=== PATIENT | male | born 1950 | race Caucasian/White ===

== ENCOUNTER → 2017-11-28 15:44 | Outpatient (CLI) | payer OTHER, SELFPAY ==
--- NOTE | 2017-11-28 16:00 | RAD_ITS ---
STUDY: X-RAY - ABDOMEN/PELVIS REASON FOR EXAM: Male, 67 years old. Kidney stones TECHNIQUE: 2 supine views of the abdomen. COMPARISON: CT 07/25/2017. FINDINGS: Normal visualized lung bases. There is an unremarkable bowel gas pattern. There is no demonstrated free abdominal air. The visualized liver, spleen and kidneys are grossly normal in size and morphology. No renal stones identified. There are calcified phleboliths in the pelvis. Normal visualized osseous structures. RAD/Abdomen Single View IMPRESSION: Normal x-ray examination of the abdomen and pelvis. No renal or ureteral stones identified. Phleboliths identified in the pelvis. Electronically Signed: Yang Rodriguez DO at 6:39 EDT , Service support ,
== END ==
PROVIDERS: Family Provider Family Medicine; PCP Family Medicine; Visit Provider Urology
DX: N20.0 Calculus of kidney (principal)
CPT/HCPCS: 74018

== ENCOUNTER → 2017-11-28 18:27 | Outpatient (CLI) | payer OTHER, SELFPAY | PROVIDERS: Family Provider Family Medicine; PCP Family Medicine; Visit Provider Urology | DX: N21.0 Calculus in bladder (principal) | CPT/HCPCS: 87086 ==

== ENCOUNTER → 2017-12-24 16:02 | Outpatient (CLI) | payer OTHER, SELFPAY ==
--- NOTE | 2017-12-24 16:11 | EKG12_ITS ---
Test Reason : PRE-OP Blood Pressure : / mmHG Vent. Rate : 064 BPM Atrial Rate : 064 BPM P-R Int : 158 ms QRS Dur : 074 ms QT Int : 398 ms P-R-T Axes : 029 -17 -02 degrees QTc Int : 410 ms Normal sinus rhythm Inferior infarct , age undetermined , cannot be excluded Abnormal ECG Confirmed by SHARMAINE CAMILO, REGINA ([id number]), editor managing director PREMA WILKS ([id number]) on 12/26/2017 1:22:07 PM Referred By: Stone Goldman Confirmed By:REGINA SCHMID MD
[2017-12-24 17:23] LABS: Hematocrit 42.3 % (40-54); Mean Corp Hgb Conc 35.5 g/gl (32-36); Mean Corpuscular Hgb 30.5 pg (27.0-32.0); Mean Corpuscular Volume 86.2 fL (80-94); Mean Platelet Vol. 11.5 fl (6.2-12.0); Platelet Count 165 K/mm3 (150-450); RBC Distribution Width CV 12.4 % (11.6-14.6); RBC Distribution Width SD 38.7 fl (35.1-43.9); Red Blood Count 4.91 M/mm3 (4.6-6.2); White Blood Count 6.6 K/mm3 (4.4-11.0)
[2017-12-24 17:49] LABS: Scan Indicated on CBC? Y/N NO
[2017-12-24 18:02] LABS: Anion Gap 8 (5-15); BUN 12 mg/dL (7-18); BUN/Creat Ratio 13.2 RATIO (10-20); Calcium,Total 8.8 mg/dL (8.5-10.1); Chloride 108 mmol/L (98-107); Creatinine, Serum 0.91 mg/dL (0.70-1.30); EST Glomerular Filtration Rate 89 mL/min (>60); Est Glom Filt Rate - Afr Amer 107 mL/min (>60); Glucose 91 mg/dL (74-106); Potassium 3.7 mmol/L (3.5-5.1); Sodium Level 143 mmol/L (136-145)
== END ==
PROVIDERS: Family Provider Family Medicine; PCP Family Medicine; Visit Provider Urology
DX: Z01.818 Encounter for other preprocedural examination (principal); N20.0 Calculus of kidney
CPT/HCPCS: 36415; 80048; 85027; 93005

== ENCOUNTER → 2017-12-27 16:29 | Outpatient (CLI) | payer OTHER, SELFPAY ==
[2018-01-07 12:08] LABS: Ca Oxalate, Dihydrate 25 % (.); Ca Oxalate, Monohydrate 70 % (.)
== END ==
PROVIDERS: Visit Provider Urology
DX: N20.1 Calculus of ureter (principal); R31.0 Gross hematuria
CPT/HCPCS: 82360

== ENCOUNTER → 2018-05-07 16:55 | Outpatient (CLI) | payer OTHER, SELFPAY ==
[2018-05-07 18:33] LABS: AST(SGOT) 17 U/L (15-37); Alanine Aminotransfer ALT/SGPT 31 U/L (16-61); Albumin, Serum 3.8 g/dL (3.2-5.0); Alkaline Phosphatase 62 U/L (45-117); Anion Gap 10 (5-15); BUN 13 mg/dL (7-18); BUN/Creat Ratio 14.8 RATIO (10-20); Chloride 107 mmol/L (98-107); Cholesterol 145 mg/dL (200); Creatinine, Serum 0.88 mg/dL (0.70-1.30); EST Glomerular Filtration Rate 92 mL/min (>60); Est Glom Filt Rate - Afr Amer 112 mL/min (>60); Glucose 100 mg/dL (74-106); High Density Lipoprotein 28 mg/dL; Potassium 3.8 mmol/L (3.5-5.1); Protein, Total 7.8 g/dL (6.4-8.2); Sodium Level 141 mmol/L (136-145); Triglycerides 154 mg/dL; Very Low Density Lipoprotein 31 mg/dL (5-40)
== END ==
PROVIDERS: Family Provider Family Medicine; PCP Family Medicine; Visit Provider Family Medicine
DX: I10 Essential (primary) hypertension (principal); E78.5 Hyperlipidemia, unspecified
CPT/HCPCS: 36415; 80048; 80061; 80076

== ENCOUNTER → 2018-11-07 07:36 | Outpatient (CLI) | payer OTHER, SELFPAY ==
[2018-11-07 09:47] LABS: Anion Gap 6 (5-15); BUN 11 mg/dL (7-18); BUN/Creat Ratio 13.4 RATIO (10-20); Calcium,Total 8.9 mg/dL (8.5-10.1); Chloride 106 mmol/L (98-107); Cholesterol 169 mg/dL (200); Creatinine, Serum 0.82 mg/dL (0.70-1.30); EST Glomerular Filtration Rate 100 mL/min (>60); Est Glom Filt Rate - Afr Amer 121 mL/min (>60); Glucose 113 mg/dL (74-106); High Density Lipoprotein 33 mg/dL; Potassium 4.3 mmol/L (3.5-5.1); Sodium Level 141 mmol/L (136-145); Triglycerides 286 mg/dL; Very Low Density Lipoprotein 57 mg/dL (5-40)
== END ==
PROVIDERS: Family Provider Family Medicine; PCP Family Medicine; Referring Provider Family Medicine; Visit Provider Family Medicine
DX: I10 Essential (primary) hypertension (principal); E78.00 Pure hypercholesterolemia, unspecified
CPT/HCPCS: 36415; 80048; 80061

== ENCOUNTER → 2018-12-29 | Outpatient (CLI) | payer OTHER, SELFPAY ==
--- NOTE | 2018-12-29 17:20 | RAD_ITS ---
STUDY: X-RAY - ABDOMEN/PELVIS REASON FOR EXAM: Male, 68 years old. Right-sided kidney stone for follow-up. TECHNIQUE: AP supine abdomen 2 views. COMPARISON: November 28, 2017. FINDINGS: Normal visualized lung bases. There is an unremarkable bowel gas pattern. There is no demonstrated free abdominal air. The visualized liver, spleen and kidneys are grossly normal in size and morphology. Normal soft tissue structures. Normal visualized osseous structures. Calcifications in the pelvis suggestive of phleboliths unchanged. No renal calculi identified. Small renal calculi could easily be obscured by overlying bowel gas and stool. RAD/Abdomen Single View IMPRESSION: Normal x-ray examination of the abdomen and pelvis. No urinary tract stones identified. Electronically Signed: Mike Rodriguez MD at 1:34 EDT , Service support ,
== END | disposition home or self-care (01) ==
PROVIDERS: Family Provider Family Medicine; PCP Family Medicine; Referring Provider Urology; Visit Provider Urology
DX: N20.0 Calculus of kidney (principal); R31.9 Hematuria, unspecified
CPT/HCPCS: 74018; 87086; 87088

== ENCOUNTER → 2019-12-21 | Outpatient (CLI) | payer OTHER, SELFPAY ==
--- NOTE | 2019-12-21 17:03 | RAD_ITS ---
STUDY: X-RAY - RIGHT KNEE REASON FOR EXAM: Male, 69 years old. CHRONIC KNEE PAIN TECHNIQUE: 4 view(s) of the knee. COMPARISON: None. FINDINGS: Normal visualized distal femur. Normal visualized proximal tibia and fibula. Normal proximal tibiofibular articulation. There is no demonstrated fracture. There is mild to moderate degenerative arthrosis of the medial femorotibial compartment. There is mild degenerative arthrosis of the lateral femorotibial compartment. There is minimal degenerative arthrosis of the patellofemoral articulation. There is mild joint effusion. There is soft tissue swelling along the anterior ankle and suprapatellar region. RAD/Knee 4 or More Views IMPRESSION: Mild degenerative disease with mild joint effusion. No acute fracture or subluxation. Electronically Signed: Mona Davis MD at 0:25 EDT , Service support ,
== END | disposition home or self-care (01) ==
LOC: MTRAD 17:02
PROVIDERS: PCP Family Medicine; Referring Provider Family Medicine; Visit Provider Family Medicine
DX: M25.561 Pain in right knee (principal)
CPT/HCPCS: 73564

== ENCOUNTER → 2019-12-24 | Outpatient (CLI) | payer OTHER, SELFPAY ==
[2019-12-24 08:06] LABS: Anion Gap 7 (5-15); BUN 13 mg/dL (7-18); BUN/Creat Ratio 14.5 RATIO (10-20); Calcium,Total 8.9 mg/dL (8.5-10.1); Chloride 107 mmol/L (98-107); Cholesterol 156 mg/dL (200); EST Glomerular Filtration Rate 90 mL/min (>60); Est Glom Filt Rate - Afr Amer 109 mL/min (>60); Glucose 120 mg/dL (74-106); High Density Lipoprotein 27 mg/dL; Sodium Level 141 mmol/L (136-145); Triglycerides 290 mg/dL; Very Low Density Lipoprotein 58 mg/dL (5-40)
== END | disposition home or self-care (01) ==
PROVIDERS: PCP Family Medicine; Referring Provider Family Medicine; Visit Provider Family Medicine
DX: I10 Essential (primary) hypertension (principal)
CPT/HCPCS: 36415; 80048; 80061

== ENCOUNTER → 2020-04-29 | Outpatient (CLI) | payer OTHER, SELFPAY ==
--- NOTE | 2020-04-29 16:55 | RAD_ITS ---
STUDY: X-RAY CHEST REASON FOR EXAM: Male, 69 years old. Chest pain and cough TECHNIQUE: PA and lateral views of the chest. COMPARISON: 09/20/2014 FINDINGS: The lungs are clear and expanded. There is no demonstrated pleural abnormality. Normal size heart. Normal mediastinum and cherry. Normal visualized pulmonary arteries. Normal visualized aortic arch and descending thoracic aorta. Normal visualized thoracic spine. Normal visualized ribs, clavicles, and shoulders. There is no demonstrated abnormality of the visualized soft tissue structures of the upper abdomen. RAD/Chest PA and Lateral IMPRESSION: No acute pulmonary process Electronically Signed: Bc Duong MD at 10:45 EDT , Service support ,
== END | disposition home or self-care (01) ==
PROVIDERS: PCP Family Medicine; Referring Provider Family Medicine; Visit Provider Family Medicine
DX: J40 Bronchitis, not specified as acute or chronic (principal)
CPT/HCPCS: 71046

== ENCOUNTER → 2020-06-29 16:14 | Outpatient (CLI) | payer OTHER, SELFPAY ==
[2020-06-29 18:06] LABS: Anion Gap 7 (5-15); BUN 14 mg/dL (7-18); BUN/Creat Ratio 17.9 RATIO (10-20); Chloride 106 mmol/L (98-107); Cholesterol 159 mg/dL (200); Creatinine, Serum 0.78 mg/dL (0.70-1.30); EST Glomerular Filtration Rate 105 mL/min (>60); Est Glom Filt Rate - Afr Amer 127 mL/min (>60); Glucose 99 mg/dL (74-106); High Density Lipoprotein 36 mg/dL; Potassium 3.8 mmol/L (3.5-5.1); Sodium Level 140 mmol/L (136-145); Triglycerides 180 mg/dL; Very Low Density Lipoprotein 36 mg/dL (5-40)
== END ==
PROVIDERS: PCP Family Medicine; Visit Provider Family Medicine
DX: I10 Essential (primary) hypertension (principal)
CPT/HCPCS: 36415; 80048; 80061

== ENCOUNTER → 2020-08-17 15:45 | Outpatient (CLI) | payer OTHER, SELFPAY ==
--- NOTE | 2020-08-17 15:47 | RAD_ITS ---
STUDY: X-RAY - CERVICAL SPINE REASON FOR EXAM: Male, 69 years old. pain, base of neck in between shoulder blades TECHNIQUE: 6 view(s) of the cervical spine were obtained. COMPARISON: None FINDINGS: Normal anterior atlantoaxial articulation. Normal odontoid process. Normal cervical lordosis. There is multi-level endplate spondylosis. There is multi-level degenerative disc disease with multilevel disc space narrowing. There is multi-level osseous foraminal stenosis. The soft tissue structures are unremarkable. RAD/Cerv Spine 4 or 5 Views IMPRESSION: Degenerative changes without acute findings Electronically Signed: Ag Minor DO at 10:52 EST Tel , Service support ,
== END ==
PROVIDERS: PCP Family Medicine; Referring Provider Family Medicine; Visit Provider Family Medicine
DX: M54.2 Cervicalgia (principal)
CPT/HCPCS: 72050

== ENCOUNTER → 2021-04-10 | Outpatient (CLI) | payer MEDICARE, SELFPAY | END | disposition home or self-care (01) | PROVIDERS: PCP Family Medicine; Referring Provider Family Medicine; Visit Provider Family Medicine | DX: L02.91 Cutaneous abscess, unspecified (principal) | CPT/HCPCS: 87070; 87077; 87186; 87205 ==

== ENCOUNTER → 2021-04-17 | Outpatient (CLI) | payer MEDICARE, SELFPAY | END | disposition home or self-care (01) | LOC: LABSPEC 15:46 | PROVIDERS: PCP Family Medicine; Referring Provider Physician Assistant Surgical; Visit Provider Physician Assistant Surgical | DX: Z11.52 Encounter for screening for COVID-19 (principal) | CPT/HCPCS: 87635; U0005; U0003 ==

== ENCOUNTER → 2021-06-12 10:30 | Outpatient (CLI) | payer MEDICARE, SELFPAY ==
--- NOTE | 2021-06-12 10:39 | VDLE_ITS ---
Reason For Study: pain RIGHT GSV is normal. CFV is compressible, spontaneous, phasic, competent and demonstrates normal augmentation. FV is compressible, spontaneous, phasic, competent and demonstrates normal augmentation. POP V is compressible, spontaneous, phasic, competent and demonstrates normal augmentation. T/P Trunk is compressible. PTV is compressible. RT PerV is compressible. Procedure This is a venous duplex using B-mode, color flow and spectral Doppler. Exam performed in department. The exam was abbreviated due to the COVID 19 protocol. The exam was diagnostic. A preliminary report was called and/or faxed to Dr. Laguna. VL/Venous Duplex US, Unilateral Interpretation Summary Deep veins of the right lower extremity are patent and compressible segmentally . There is no evidence of right lower extremity deep vein thrombosis. Valvular competence renate ears intact within the proximal deep venous system on the right . The right great saphenous vein a ppears patent and compressible segmentally. Ordering Physician: Dawson Laguna Performed By: Damián Whitlock RVT
== END ==
PROVIDERS: PCP Family Medicine; Referring Provider Family Medicine; Visit Provider Family Medicine
DX: M79.604 Pain in right leg (principal)
CPT/HCPCS: 93971

== ENCOUNTER 2021-10-26 12:06 | Outpatient (CLI) | payer MEDICARE, SELFPAY ==
--- NOTE | 2021-10-26 12:15 | RAD_ITS ---
STUDY: X-RAY - RIGHT KNEE REASON FOR EXAM: Male, 71 years old. Pain. TECHNIQUE: 4 view(s) of the knee. COMPARISON: 02/09/2013 and 12/21/2019.. FINDINGS: Normal visualized distal femur. Normal visualized proximal tibia and fibula. Normal proximal tibiofibular articulation. There is no acute fracture, dislocation or destructive osseous pathology. There is moderate degenerative arthrosis of the medial femorotibial compartment with moderate joint space narrowing. There is mild degenerative arthrosis of the lateral femorotibial compartment. There is mild degenerative arthrosis of the patellofemoral articulation. There is no demonstrated joint effusion. The soft tissue structures are unremarkable. RAD/Knee 4 or More Views IMPRESSION: Stable arthrosis of the right knee. There is no acute fracture or dislocation. Electronically Signed: Lupillo Gunn DO at 16:08 EST ,
== END 2021-10-26 23:59 | disposition home or self-care (01) ==
PROVIDERS: PCP Family Medicine; Referring Provider Family Medicine; Visit Provider Family Medicine
DX: M25.561 Pain in right knee (principal)
CPT/HCPCS: 73564

== ENCOUNTER 2021-12-12 12:37 | Outpatient (CLI) | payer SELFPAY ==
--- NOTE | 2021-12-12 12:47 | CT_ITS ---
CT Lower Extremity W/O Contrast Injection INDICATION:71 years old Male presenting with templating for right TKA. TECHNIQUE: Sequential axial 2.5 mm collimated images are obtained through the right hip and ankle. 0.625 mm images were obtained through the right knee. No intravenous contrast was administered. Images were reformatted in sagittal and coronal planes and forwarded for preoperative planning. COMPARISON: None. FINDINGS: Contiguous axial images of the right lower extremity was obtained in different collimations for preoperative planning, images demonstrate degenerative changes, no evidence of cortical irregularity is a lucencies to suggest fractures, no evidence of lytic or sclerotic bone lesions are seen. No evidence of right hip dislocation, no significant narrowing or widening of the right hip joint space. Moderate to severe narrowing of the knee joint spaces is visualized calcifications visualized within the joint space consistent with CPPD deposition disease. Prominent osteophyte formation is seen. No evidence of suprapatellar effusion. No evidence of popliteal collection. 0.8 cm subchondral density visualized in the medial aspect of the distal femur with mild scalloping of the overlying cortex best visualized on axial series 2 image 243/647. The ankle mortise is well-maintained, the talar dome is unremarkable, degenerative changes visualized with no evidence of cortical irregularity and lucency to suggest a fracture. No evidence of dislocation is seen. Stranding of the subcutaneous soft tissues is visualized, most prominent along the anterior aspect of the patella bone and patellar ligament. Vascular calcifications seen. IMPRESSION: Degenerative changes, no evidence of acute osseous abnormality seen. Electronically Signed: Arslan Mac MD at 14:59 EDT Reading Location ID and State: [facility] / [place] Tel , Service support , CT/Extremity Lower without Contra
== END 2021-12-12 23:59 | disposition home or self-care (01) ==
LOC: CT 12:45
PROVIDERS: PCP Family Medicine; Referring Provider Orthopaedic Surgery; Visit Provider Orthopaedic Surgery
DX: M17.11 Unilateral primary osteoarthritis, right knee (principal)
CPT/HCPCS: 73700

== ENCOUNTER 2022-01-02 05:42 | Inpatient (IN) | payer MEDICARE, SELFPAY ==
[2021-12-21 10:11] LABS: Absolute Lymphocyte Count 1.68 X10^3/uL (0.83-4.51); Absolute Neutrophil Count 2.5 X10^3/uL (2.0-7.7); Basophil# 0.03 X10^3/uL; Basophil% 0.6 % (0-1); Eosinophil# 0.11 X10^3/uL; Eosinophils% 2.2 % (0-5); Hematocrit 41.9 % (40-54); Hemoglobin 14.1 g/dL (13.0-16.5); Lymphocyte # 1.68 X10^3/ul (0.83-4.51); Lymphocyte % 34.3 % (19-41); Mean Corp Hgb Conc 33.7 g/dL (32-36); Mean Corpuscular Hgb 29.9 pg (27.0-32.0); Mean Corpuscular Volume 88.8 fL (80-94); Mean Platelet Vol. 11.1 fl (6.2-12.0); Monocyte# 0.55 X10^3/uL; Monocyte% 11.2 % (0-10); NRBC Flagged by Analyzer 0 % (0-5); Neutrophil # 2.52 X10^3/uL (2.7-7.7); Neutrophil % 51.5 % (47-70); Platelet Count 159 K/mm3 (150-450); RBC Distribution Width CV 12.1 % (11.6-14.6); RBC Distribution Width SD 39.8 fl (35.1-43.9); Red Blood Count 4.72 M/mm3 (4.6-6.2); White Blood Count 4.9 K/mm3 (4.4-11.0)
[2021-12-21 10:18] LABS: International Normalized Ratio 1.1; Prothrombin Time (Protime)PT. 13.4 SECONDS (11.7-14.9)
[2021-12-21 10:19] LABS: Partial Thromboplast Time 28.5 Seconds (24.1-36.2)
[2021-12-21 10:38] LABS: Anion Gap 5 (5-15); BUN 13 mg/dL (7-18); BUN/Creat Ratio 17.1 RATIO (10-20); Chloride 106 mmol/L (98-107); Creatinine, Serum 0.76 mg/dL (0.70-1.30); EST Glomerular Filtration Rate 108 mL/min (>60); Est Glom Filt Rate - Afr Amer 130 mL/min (>60); Glucose 111 mg/dL (74-106); Potassium 3.9 mmol/L (3.5-5.1); Sodium Level 140 mmol/L (136-145)
[2021-12-21 10:39] LABS: Magnesium 1.9 mg/dL (1.6-2.6)
--- NOTE | 2021-12-22 10:32 | EKG12_ITS ---
Test Reason : PRE-OP Blood Pressure : / mmHG Vent. Rate : 056 BPM Atrial Rate : 056 BPM P-R Int : 176 ms QRS Dur : 074 ms QT Int : 436 ms P-R-T Axes : 011 -20 -06 degrees QTc Int : 420 ms Sinus bradycardia Inferior infarct , age undetermined, cannot be excluded Abnormal ECG Confirmed by SHARMAINE CAMILO, REGINA ([id number]), desk editor SANGITA CHRIS ([id number]) on 12/22/2021 10:33:18 AM Referred By: Jim Whelan Confirmed By:REGINA SCHMID MD
[2021-12-22 12:47] LABS: Fructosamine 229 umol/L (0-285)
[2022-01-02] VITALS (10 sets, daily range): BP systolic 105–144; BP diastolic 64–129; PULSE 58–75; RESP 14–20; TEMP 36.1–37.1; O2SAT 94–100; BMI 38.6
[2022-01-02] MEDS: Scopolamine 1mg/72hr Patch 1 PATCH TD (06:58)
[2022-01-02] MEDS: Acetaminophen 500 MG Tablet 1000 MG PO ×3 (06:58→21:52)
[2022-01-02] MEDS: Gabapentin 600 MG Tablet PO (06:58)
[2022-01-02] MEDS: Celecoxib 200 MG Capsule 400 MG PO (06:59)
--- NOTE | 2022-01-02 07:08 | HP.PCM_ITS ---
History and Physical Date of Admission: 01/02/22 Date of Service: 11/06/21 MR#:[id number]:[id number]: HANNAH LEBRONRep #:[id number] Provider:Dr. Jim Whelan DOAge/Sex: 71/M Location:[facility]:Signed Intake Vital Signs 11/06/21 08:22 Height 5 ft 7 in Weight: 247 lb 2 oz BMI 38.7 Intake Visit Reasons: RIGHT KNEE Is patient in pain?: Yes Pain scale (1-10): 7 Allergies No Known Allergies Allergy (Verified 11/06/21 08:26) Medications clopidogrel 75 mg PO DAILY 12/21/15 [History Confirmed 04/17/21] pantoprazole 40 mg PO DAILY 12/21/15 [History Confirmed 11/06/21] pravastatin 40 mg PO QHS 12/21/15 [History Confirmed 11/06/21] valsartan 80 mg PO DAILY 12/21/15 [History Confirmed 11/06/21] [facility] History (Updated 11/06/21 @ 08:37 by Cherelle Camp) HTN (hypertension) Osteoarthritis of right knee Stroke Surgical History (Updated 04/17/21 @ 13:48 by Tatum Díaz) History of hernia repair Social History Smoking Status: Former smoker HPI RIGHT KNEE Details: Parts of this documentation were recorded by a scribe, this documentation accurately reflects the service provided and the decisions made by me, Dr. Jim Whelan, 11/06/21 0744. HANNAH LEBRON is a 71 year old M here today new patient for right knee pain, r antony from Dr. Dawson Laguna. Patient notes that he has had right knee pain for many years. He states that he has had a few steroid injections over the last few years with the most recent about 1-2 months ago. Patient states that he slipped on the ice a few weeks ago and when he hyperextended his knee where he had pain immediately. He states that he had a pop at that time. Patient complains of pain over his anterior knee. He had cracking and snapping which is not painful. He complains of an achiness at night. Patient has been using aspercreme which is helpful. He has been wearing a brace which is helpful. Patient denies any previous surgery to his right knee. Patient is taking tramadol for pain. He denies any recent physical therapy. Patient had xrays which are here for review. 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 mild edema. varicose veins Left Knee Patella Translation: 1 Supplemental Info 10/26/2021 x-ray right knee advanced medial compartment knee arthrosis with varus deformity also degenerative changes noted in lateral and patellofemoral compartment with lateral patellar tracking Coding Level of Care Code 64342 Diagnoses Osteoarthritis of right knee M17.11 Assessment and Plan Assessment and Plan (1) Osteoarthritis of right knee: Status: Acute Plan - Dr. Jim Whelan, DO: Educated the patient about the anatomy of the knee and etiology of her pain. Spoke with him about osteoarthritis. Explained his options- steroid injections, viscosupplementation injections, licensed occupational therapist bracing, physical therapy, a total knee arthroplasty. Patients pain is affecting his ADLs and he would like to proceed with an arthroplasty. Spoke with him about the procedure and recovery. He will need to stop his plavix 7 days prior to his surgery, we will get a medical clearance from his PCP. He will need to get a CT scan for TKA templating. Spoke with him about the importance of physical therapy post op to help with stiffness. Patient needs dental work due to broken teeth. We need to get a dental clearance prior to the procedure to assure he does not have an infection. Spoke with him about the iovera procedure which he would like to proceed with if approved with insurance. He will be on a blood thinner post op to prevent clots. Patient will be same day surgery. Follow up for 2 week post op or sooner if pain, swelling, numbness or associated symptoms, or concerns develop. All questions answered. Patient in agreement of plan. I will forward a copy to Dr. Laguna of today's note 11/06/21 0955<Electronically signed by Jim Whelan DO>Date Jim Whelan DO Cosigner Signature:Date (if applicable) CC: Dr. Dawson Laguna MD ~I have re-examined the patient. There are no clinical changes since date of exam
[2022-01-02] MEDS: Lactated Ringers 1,000 ML 15 ML IV (07:17)
[2022-01-02] MEDS: Cefazolin 2 GM in 0.9% Normal Saline 100 ML IV (07:55)
--- NOTE | 2022-01-02 08:00 | KNEE_PTH ---
PATIENT: HANNAH LEBRON LOC: MS3 U#:[id number] AGE/SX: 71/M ROOM: [facility] RE01/02/[address]: Dr. Jim Whelan DO : 1950 BED: 1 DIS: 01/03/2022 SPEC #: [id number] RECD: 01/02/22 10:49 STATUS: VICTORIANO ROMANO #: [id number] MARIALUISA: 01/02/22 08:[address]: Jim Whelan DEPT: SURGICAL PATHOLOGY RECD BY: Gracie Eckert ENTERED: 01/02/22 12:10 SP TYPE: TOTAL KNEE OTHR DR: Dr. Dawson Laguna MD Tissues: Knee, NOS Procedures: Decalcification bone/plaque Surgery Specimen Level IV HEADER OPERATION: ERAS, total knee replacement robotic arm assist PRE-OP DIAGNOSIS: Osteoarthritis of right knee TISSUE SUBMITTED: Femoral and tibial bone MICROSCOPIC DIAGNOSIS Bone and tissue of left knee, total knee resection: Severe degenerative joint disease. Soft tissue with crystalline debris consistent with pseudogout. AM:guillaume 01/05/2022 MICROSCOPIC DESCRIPTION Slides are reviewed. GROSS DESCRIPTION Received in fixative is one container labeled with the patient's name and designated femoral and tibial bone. The specimen consists of multiple fragments of herrera-yellow bone measuring in aggregate 10 x 10 x 3.5 cm. Also in the specimen container are multiple fragments of yellow-white soft tissue consisting predominantly of hyaline cartilaginous tissue measuring in aggregate 6.5 x 3 x 1 cm. A number of bony fragments contain articular surfaces consistent with tibial plateau and femoral condyle and displaying prominent osteophyte formation, eburnation, and bone erosion. Physician Ophthalmologist sections are submitted in two cassettes as follows: 1 - soft tissue, 2 - bone after decalcification. / SJ:guillaume 01/02/2022 :5 [facility]: [id number], [id number]
[2022-01-02] MEDS: TXA 1000mg in NS100 100ml (IVPB at Incision) 660 MG IV (08:08)
[2022-01-02 08:25] LABS: Bedside Glucose 121 mg/dL (74-106)
[2022-01-02] MEDS: dexAMETHasone 10 MG/ML Vial IV (08:52)
[2022-01-02] MEDS: TXA 1000mg in NS100 100ml (IVPB at Closure) 660 MG IV (10:03)
--- NOTE | 2022-01-02 10:25 | OP.PCM_ITS ---
Report of Operation Date of Procedure: 01/02/22 Description of Surgical Findings:: Preoperative diagnosis: Right knee DJD Postoperative diagnosis: Same Procedure: Right total knee arthroplasty CT guided Robotic Assisted Implant: John triathlon cemented, femoral component size5, tibial baseplate size 5, asymmetric patella size 32, polyethylene X3 size 9 CS Anesthesia: Spinal with adductor canal block Tourniquet time: 32 minutes at 300 mmHg total time divided between 2 increments with a period of a down to between Complications: None Condition: Stable to PACU Estimated blood loss: 225 cc Indication for procedure: This is a 71-year-old male with long standing degenerative joint disease of the knee who has failed conservative treatment and wished to proceed with elective total knee arthroplasty. Risk benefits and alternatives were reviewed including; risk of bleeding, infection, nerve artery and tissue damage, continued pain, postoperative stiffness, venous thromboembolism, need for postoperative rehabilitation, mechanical feel to the knee, and expected postoperative course. The pre- operative CT and templating was performed with component sizing. Procedure: The patient was met in the preoperative holding area. The operative extremity was identified by both patient and physician and was marked. Patient was met by anesthesia. An adductor canal block was placed by anesthesia postoperatively the patient was brought back to the operating room on a wheeled cart and transferred to the operating table in the supine position. Anesthesia was started. A well-padded tourniquet was placed on the operative extremity. The patient was prepped and draped in the usual sterile fashion. A timeout was called to ensure the proper patient procedure and extremity were being contemplated. An esmarch was used to exsanguinate the extremity. The tourniquet was inflated. A 10 blade scalpel was used to make a midline incision down through the skin and subcutaneous tissue. Skin retractors placed. Bovie and Aquamantis were used to perform meticulous hemostasis. full-thickness flaps were elevated medial and lateral along the joint capsule. A deep blade scalpel was used to perform a medial parapatellar arthrotomy. The knee was brought to full extension. A bovie was used to release the soft tissues off the most proximal aspect of the medial tibial plateau, a three-quarter inch curved osteotome was also used in this process. The infrapatellar fat pad was excised. The suprapatellar fat pad was excised partially anteriorolateraly and portion the anterioromedial pad was elevated from the femur. At this point our intra- articular femoral array was placed at a 45 degree angle proximal and posterior to the medial epicondyle. femoral checkpoint was placed at this time. Our tibial array was placed greater than 1 hands breath below the incision at a 20 degree angle stab incisions were made with a 15 blade scalpel and pins were placed and attached to the tibial array , tibial checkpoint was placed in the proximal tibial metaphysis. Tourniquet was let down. At this point registration landers were taken throughout the knee . Once the knee was registered we then tensioned the medial and lateral ligaments in extension and 90 degrees of flexion. We then used these numbers to adjust our components within parameters to balance the knee in both flexion and extension once this was done on our monitor we then proceeded with using the robotic arm to make our tibial plateau cut, anterior and posterior chamfer and distal femur cuts. we removed the cut fragments with the use of a bovie and Trey, we did use a lamina fitness and wellness instructor to insure we visualized and removed all posterior osteophytes and at this time also used the Aquamantis on the posterior joint capsule. we then trialed and achieved the desired plan with a well-balanced knee. we used the green probe to manolo the corresponding tibial rotation based on our CT template. Lug holes were drilled in the femur the tibia preparation was completed with the appropriate sized base plate pinned based on previous rotat ion manolo. An appropriate sized fin punch was used on the tibia and the patella was prepared by first using a caliper to ensure sufficient bone stock and a patellar reamer to remove the desired amount of bone. lug holes drilled for an asymmetric poly. We then brought the knee through range of motion with excellent patellar tracking. We thoroughly irrigated the knee. Trial components were removed a posterior capsular injection was preformed with our standard cocktail. In addition the aqua Mantis was also used to aid in hemostasis. Betadine rinse was allowed to sit and washed out completely. Components were cemented into place all cement was removed with prayers Betadine rinse was used during cement hardening. Aricept rinse was then used followed by several more liters of irrigation after it was allowed to sit. The joint capsule was closed with #1 Ethibond [id number]'s followed by Vicryl in the subcutaneous tissues with humberto in the skin. Arrays and checkpoints were rem sal prior to closure all counts were correct stab incisions were closed with a staple standard dressing in the form of Mepilex AG for the main incision and a small Mepilex over the pin holes. Thigh-high RUBÉN hose applied over top of dressing. Patient tolerated the procedure well and was directed to PACU in stable condition . There were no intraoperative complications.
--- NOTE | 2022-01-02 10:50 | RAD_ITS ---
STUDY: X-RAY - RIGHT KNEE REASON FOR EXAM: Male, 71 years old. Post op -- AP and Lateral xray of operative knee in PACU TECHNIQUE: 2 view(s) of the knee. COMPARISON: Comparison is made with prior study 10/26/2021. FINDINGS: Normal visualized distal femur. Normal visualized proximal tibia and fibula. Normal proximal tibiofibular articulation. Patient is status post right total knee replacement. There is good alignment. Postoperative soft tissue changes. RAD/Knee 1 or 2 Views IMPRESSION: Status post right total knee replacement. There is good alignment. Postoperative soft tissue changes. Electronically Signed: Herber Kumari MD at 12:20 EDT ,
[2022-01-02] MEDS: oxyCODONE 5 MG Tablet PO ×2 (12:26→16:27)
[2022-01-02] MEDS: Cefazolin 1 GM/50 ML BAG IV ×2 (13:29→21:50)
[2022-01-02] MEDS: Lactated Ringers 1,000 ML 125 ML IV ×2 (13:29→21:47)
[2022-01-02] MEDS: Senna/Docusate Sodium 1 Tablet 2 TABLET PO (21:52)
[2022-01-02] MEDS: Pravastatin 40 MG Tablet PO (21:53)
[2022-01-03 03:35] VITALS: BP 118/60; PULSE 61; RESP 18; TEMP 36.8; O2SAT 98
[2022-01-03] MEDS: oxyCODONE 5 MG Tablet PO ×2 (04:27→12:44)
[2022-01-03] MEDS: Cefazolin 1 GM/50 ML BAG IV (04:29)
[2022-01-03] MEDS: Acetaminophen 500 MG Tablet 1000 MG PO (05:12)
[2022-01-03] MEDS: APIXABAN 2.5 MG TABLET PO (05:13)
[2022-01-03 05:18] LABS: Hematocrit 33.3 % (40-54); Hemoglobin 11.3 g/dL (13.0-16.5); Mean Corp Hgb Conc 33.9 g/dL (32-36); Mean Corpuscular Hgb 30.4 pg (27.0-32.0); Mean Corpuscular Volume 89.5 fL (80-94); Mean Platelet Vol. 11.3 fl (6.2-12.0); Platelet Count 130 K/mm3 (150-450); RBC Distribution Width SD 39.2 fl (35.1-43.9); Red Blood Count 3.72 M/mm3 (4.6-6.2); White Blood Count 9.3 K/mm3 (4.4-11.0)
[2022-01-03 05:43] LABS: Anion Gap 6 (5-15); BUN 13 mg/dL (7-18); Calcium,Total 8.2 mg/dL (8.5-10.1); Chloride 106 mmol/L (98-107); Creatinine, Serum 0.72 mg/dL (0.70-1.30); EST Glomerular Filtration Rate 114 mL/min (>60); Est Glom Filt Rate - Afr Amer 138 mL/min (>60); Estimated Creatinine Clearance 64.26 ml/min; Glucose 170 mg/dL (74-106); Potassium 3.8 mmol/L (3.5-5.1); Sodium Level 139 mmol/L (136-145)
[2022-01-03 07:35] VITALS: BP 128/81; PULSE 58; RESP 18; TEMP 36.7; O2SAT 98
[2022-01-03] MEDS: Pantoprazole Sodium 40 MG Tablet PO (08:33)
[2022-01-03] MEDS: Senna/Docusate Sodium 1 Tablet 2 TABLET PO (08:33)
[2022-01-03] MEDS: Losartan Potassium 25 MG Tablet PO (08:33)
--- NOTE | 2022-01-03 10:15 | CASEMGMT ---
CARINE ZIEGLER Assessment: Face to Face with pt for initial transition planning/care coordination assessment. RN KARLIE introduced self and role at [facility], pt voices understanding and consents to assessment. Pt is A/O x4 and answers all questions appropriately at this time. Pt sitting up in chair anxious to go home. at bedside. Care providers, pharmacy, and demographics verified/updated. Admitting Dx: anterior cervical fusion rt C5-6 PCP:[facility] Specialists:Kyree, pain mgmt; Lance, spine OR [facility]erred [facility]acy: [facility] Insurance: [employer] Prescription Benefit: yes LW/HPOA: Pt denies having a LW/DPOA and denies need for info regarding AD. LNOK: Stephani Terry, Living Arrangements: Pt lives with and son in a two story house with 3 steps to enter with a rail. Pt reports he was I in ADL's prior to surgery. Pt states he has worked with therapy this morning on the steps and did well without device. Transportation: Pt drives self and denies concerns with transportation. Pt will transport him until he can drive again. DME/HHC/SNF: Pt denies having any DME in the home, hx of HHC or SNF stays. Pt states no concerns with going home at time of dc. Pt states no further concerns/needs. CM to follow. Advised pt to ask CM if any further question/concerns/needs arise, voices understanding. Pt Goal: Home Plan: Home
--- NOTE | 2022-01-03 10:23 | CASEMGMT ---
Addendum entered by Olesya Thornton 01/03/22 10:44: TC to [facility], pt is scheduled for his first therapy session on Friday 01/05 at noon. Original Note: CARINE ZIEGLER Assessment: Face to Face with pt for initial transition planning/care coordination assessment. CARINE ZIEGLER introduced self and role at [facility], pt voices understanding and consents to assessment. Pt is A/O x4 and answers all questions appropriately at this time. Pt sitting up in chair in no distress. Care providers, pharmacy, and demographics verified/updated. Admitting Dx: Rt total knee robotic PCP:Luz Elena Specialists:cynthia Whelan Preferred Pharmacy:[facility] Insurance: [employer] [facility] Prescription Benefit: yes LW/HPOA: Pt denies having a LW/DPOA and denies need for info regarding AD. LNOK: Imani Benitez, Living Arrangements: Pt lives with in a single story house with 2 steps to enter with a rail. Pt reports he was I in ADL's prior to surgery. Transportation: Pt drives self and denies concerns with transportation. Pt will transport him until he is able to drive again. DME/HHC/SNF: Pt has hand rails in the shower, shower chair as well as a FWW which is present in the room. Pt denies hx of HHC or SNF stays. Pt states no concerns with going home at time of dc. He states he has therapy set up at [facility]. He designates his to be his contact center analyst to discuss dc plans with if need be. States she will be in later. Pt states no further concerns/needs. CM to follow. Advised pt to ask CM if any further question/concerns/needs arise, voices understanding. Pt Goal: Home with outpt therapy Plan: Home with outpt therapy already set up.
--- NOTE | 2022-01-03 11:44 | PCM.PN.ORT ---
Subjective Subjective Seen and examined pain controlled denies nausea vomiting shortness of breath or chest pain he is passing gas and urine he has been up with physical therapy and ambulating well patient is requesting to be discharged home today Objective Data Objective Data Vital Signs: Vital Signs Temp Pulse Resp BP Pulse Ox 98.0 F 58 L 18 128/81 H 98 01/03/22 07:35 01/03/22 07:35 01/03/22 07:35 01/03/22 07:35 01/03/22 07:35 Oxygen Flow Rate (L/min) 4 Oxygen Delivery Method Nasal Cannula Weight: 246 lb 7.629 oz Body Mass Index (BMI) 38.6 Intake & Output: Intake and Output for Last 24 Hours 01/01/22 01/02/22 01/03/22 23:59 23:59 23:59 Intake Total 2216.00 / 2216.00 818.75 / 818.75 Output Total 1050 / 1050 550 / 550 Balance 1166.00 / 1166.00 268.75 / 268.75 Lab / Micro Data Result Diagrams: 01/03/22 04:35 01/03/22 04:35 Labs: Laboratory Results - last 24 hr 01/03/22 04:35: WBC 9.3, RBC 3.72 L, Hgb 11.3 L, Hct 33.3 L, MCV 89.5, MCH 30.4, MCHC 33.9, RDW Std Deviation 39.2, RDW Coeff of Brittni 12.0, Plt Count 130 L, MPV 11.3 01/03/22 04:35: Sodium 139, Potassium 3.8, Chloride 106, Carbon Dioxide 27.0, Anion Gap 6, BUN 13, Creatinine 0.72, Estim Creat Clear Calc 64.26, Est GFR (MDRD) Af Amer 138, Est GFR (MDRD) Non-Af 114, BUN/Creatinine Ratio 18.0, Glucose 170 H, Calcium 8.2 L Micro: Microbiology 12/21/21 09:41 Swab (Method) Nasal Screen MRSA/MSSA - Final Radiography Diagnostic Testing: Radiology Impression Knee X-Ray 01/02/22 10:50 IMPRESSION: Status post right total knee replacement. There is good alignment. Postoperative soft tissue changes. Electronically Signed: Herber Kumari MD at 12:20 EDT , Physical Exam Const alert, oriented x3 and no apparent distress General Appearance: cooperative Extremity Extremity Narrative: Dressings clean dry and intact compartments soft neurovascular intact EHL tibialis anterior gastrocsoleus intact and station light touch palpable pedal pulses Assessment & Plan Assessment/Plan (1) History of total knee arthroplasty: QUALIFIERS: Laterality: right Qualified Code(s): Z96.651 - Presence of right artificial knee joint PLAN: Postop day #1 right total knee arthroplasty. Patient is doing well pain controlled ambulating well no complaints requesting to be discharged home DC home start outpatient physical therapy weightbearing as tolerated DVT prophylaxis thigh-high RUBÉN santos, Eliquis 2.5 mg twice daily Follow-up in the office 2 weeks encourage knee range of motion
--- NOTE | 2022-01-03 11:47 | PCM.DC ---
Discharge Instructions Diet Discharge Diet: No restrictions Activity Weight Bearing Status: Weight bearing as tolerated Dressing / Incision Call your doctor if you observe: Shortness of breath and Chest pain Additional Dressing/Incision Instructions:: Ice and elevate one week while not ambulating. Ambulation is encouraged. Weightbearing as tolerated. Use assistive devise for stability. Encourage FULL knee extension and flexion 1 time EVERY time you get up and down and MULTIPLE times per day. No showering 72 hours after surgery. Begin showering postop day #3. Remove the dressing prior to shower and gently wash with warm water and antibacterial soap then pat dry and place abdominal pad (or plain gauze) and RUBÉN hose over top. This is to be done daily. Do not submerge for 3 weeks. If not showering daily after the initial 72 hours then you must clean incision and change dressing daily. Do not allow animals near the incision area. Keep clean. Follow anticoagulation recommendations as prescribed. Do not take any NSAIDs while on blood thinner. Do not take any additional narcotic pain medication other than what was prescribed on your surgery day without discussing with physician. Narcotic medication can be addictive. Do not drink alcohol while taking narcotics. Start physical therapy. If you are not currently scheduled for physical therapy or you are unsure of appointment time please call office [facility] to arrange. Call Dr. Whelan with any concerns. Follow Up Care Please Follow Up With: Jim Whelan DO When: 2 weeks Test Results: Test results from this visit will be discussed in further detail at your follow-up appointment, if applicable. Discharge Plan Admission Admit Date/Time: 01/02/22 05:42 Primary Reason for Your Visit: right tka Attending Provider: Jim Whelan Primary Care Provider: Dawson Laguna Discharge Orders/Prescriptions Prescriptions: New acetaminophen 500 mg Tablet 1,000 mg PO Q6H Qty: 100 RF: 1 Eliquis 2.5 mg Tablet 2.5 mg PO BID Qty: 28 RF: 0 oxycodone 5 mg Tablet 5 - 10 mg PO Q4H PRN PRN (Reason: Pain Score 4-10) 7 Days Qty: 60 RF: 0 Continued pravastatin 40 MG tablet 40 mg PO QHS RF: 0 valsartan 80 MG tablet 80 mg PO DAILY RF: 0 pantoprazole 40 MG tablet 40 mg PO DAILY RF: 0 Held clopidogrel 75 MG tablet 75 mg PO DAILY RF: 0 Hold Instructions: May resume day after completion of Eliquis rx Referrals / Follow Up: Dawson Laguna MD [Primary Care Provider] - Disposition Disposition (needs filled in before D/C Order can be placed): Home, Self Care
--- NOTE | 2022-01-03 11:53 | DS.PCM_ITS ---
Providers Date of Admission: 01/02/22 Primary Care Physician: Dr. Dawson Laguna MD Reason For Visit: RT TOTAL KNEE ROBOTIC Diagnosis Discharge Diagnosis (1) History of total knee arthroplasty: Status: Acute Code(s): Z96.659 - Presence of unspecified artificial knee joint Qualifiers: Laterality: right Qualified Code(s): Z96.651 - Presence of right pako ficial knee joint Medications at Discharge Home Medications clopidogrel 75 mg PO DAILY 12/21/15 pantoprazole 40 mg PO DAILY 12/21/15 pravastatin 40 mg PO QHS 12/21/15 valsartan 80 mg PO DAILY 12/21/15 acetaminophen 1,000 mg PO Q6H #100 tab 01/03/22 apixaban [Eliquis] 2.5 mg PO BID #28 tab 01/03/22 oxycodone 5 - 10 mg PO Q4H PRN PRN 7 Days #60 tab 01/03/22 Hospital Course Summary of Care Provided Hospital Course: 71-year-old male who has 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 Patient underwent the aformentioned procedure on the admission date without any intraoperative complications. Patient did receive pre-and postoperative antibiotics which were discontinued within 23 hours postoperatively. Patient did receive [spinal anesthesia as well as an adductor canal block postoperatively]. pain was controlled with IV and transition to p.o. pain medication Patient will be discharged home with oxycodone and will continue Tylenol as well. Patient had minimal intraoperative blood loss and 2gm tranexamic acid was administered there was no need for postoperative blood transfusion Patients vital signs remained stable. Patient was started on both mechanical and chemical DVT per prophylaxis postoperatively in the form of SCDs RUBÉN hose and [Eliquis 2.5 mg twice daily for which she will continue for 2 additional weeks post hospital discharge]. thigh high rubén hose placed over top of the meplix silver dressing. This should be removed 72 hrs post operatively and showering begun daily at that time with warm water and antibacterial soap. not to submerge for 3 weeks. To change dressing daily after first dressing change. Patient will follow-up in the office in 2 weeks. No intrahospital complications. Weight / BMI Weight Weight: 246 lb 7.629 oz Body Mass Index (BMI) 38.6 ABG / Lab / Microbiology Data Result Diagrams: 01/03/22 04:35 01/03/22 04:35 Laboratory: Laboratory Results - last 24 hr 01/03/22 04:35: WBC 9.3, RBC 3.72 L, Hgb 11.3 L, Hct 33.3 L, MCV 89.5, MCH 30.4, MCHC 33.9, RDW Std Deviation 39.2, RDW Coeff of Brittni 12.0, Plt Count 130 L, MPV 11.3 01/03/22 04:35: Sodium 139, Potassium 3.8, Chloride 106, Carbon Dioxide 27.0, Anion Gap 6, BUN 13, Creatinine 0.72, Estim Creat Clear Calc 64.26, Est GFR (MDR D) Af Amer 138, Est GFR (MDRD) Non-Af 114, BUN/Creatinine Ratio 18.0, Glucose 170 H, Calcium 8.2 L Microbiology: Microbiology 12/21/21 09:41 Swab (Method) Nasal Screen MRSA/MSSA - Final Radiography Diagnostic Testing: Radiology Impression Knee X-Ray 01/02/22 10:50 IMPRESSION: Status post right total knee replacement. There is good alignment. Postoperative soft tissue changes. Electronically Signed: Herber Kumari MD at 12:20 EDT , D/C Instructions Discharge Diet: No restrictions Weight Bearing Status: Weight bearing as tolerated Call your doctor if you observe: Shortness of breath and Chest pain Additional Dressing/Incision Instructions: Ice and elevate one week while not ambulating. Ambulation is encouraged. Weightbearing as tolerated. Use assistive devise for stability. Encourage FULL knee extension and flexion 1 time EVERY time you get up and down and MULTIPLE times per day. No showering 72 hours after surgery. Begin showering postop day #3. Remove the dressing prior to shower and gently wash with warm water and antibacterial soap then pat dry and place abdominal pad (or plain gauze) and RUBÉN hose over top. This is to be done daily. Do not submerge for 3 weeks. If not showering daily after the initial 72 hours then you must clean incision and change dressing daily. Do not allow animals near the incision area. Keep clean. Follow anticoagulation recommendations as prescribed. Do not take any NSAIDs while on blood thinner. Do not take any additional narcotic pain medication other than what was prescribed on your surgery day without discussing with physician. Narcotic medication can be addictive. Do not drink alcohol while taking narcotics. Start physical therapy. If you are not currently scheduled for physical therapy or you are unsure of appointment time please call office [facility] to arrange. Call Dr. Whelan with any concerns. Please Follow Up With: Jim Whelan DO When: 2 weeks Meaningful Use Info Meaningful Use Diagnoses (Choose all that apply): None applicable Discharge Plan Admission Admit Date/Time: 01/02/22 05:42 Primary Reason for Your Visit: right tka Attending Provider: Jim Whelan Primary Care Provider: Dawson Laguna Discharge Orders/Prescriptions Prescriptions: New acetaminophen 500 mg Tablet 1,000 mg PO Q6H Qty: 100 RF: 1 Eliquis 2.5 mg Tablet 2.5 mg PO BID Qty: 28 RF: 0 oxycodone 5 mg Tablet 5 - 10 mg PO Q4H PRN PRN (Reason: Pain Score 4-10) 7 Days Qty: 60 RF: 0 Continued pravastatin 40 MG tablet 40 mg PO QHS RF: 0 valsartan 80 MG tablet 80 mg PO DAILY RF: 0 pantoprazole 40 MG tablet 40 mg PO DAILY RF: 0 Held clopidogrel 75 MG tablet 75 mg PO DAILY RF: 0 Hold Instructions: May resume day after completion of Eliquis rx Referrals / Follow Up: Dawson Laguna MD [Primary Care Provider] - Disposition Disposition (needs filled in before D/C Order can be placed): Home, Self Care
--- NOTE | 2022-01-03 12:25 | CASEMGMT ---
Addendum entered by Olesya Thornton 01/03/22 12:39: Received tc from Fanny at [facility] Retail pharmacy, eliquis cost is $21.93. Total cost for all meds are $28.50. Original Note: TC to [facility] Retail pharmacy to check cost of eliquis. Pharmacist in process of filling med at this time. Ana Cristina took phone number and will call CM when it is completed.
[2022-01-03 12:50] VITALS: BP 116/68; PULSE 59; RESP 18; TEMP 36.6; O2SAT 97
[2022-01-03 12:57] VITALS: BP 116/68; PULSE 59; RESP 18; TEMP 36.6; O2SAT 97
== END 2022-01-03 14:10 | disposition home or self-care (01) | DRG 470 ==
LOC: ACINP 05:48 → MS3 01-03 09:37
PROVIDERS: Anesthesiology; Admitting Provider Orthopaedic Surgery; PCP Family Medicine; Referring Provider Orthopaedic Surgery; Visit Provider Orthopaedic Surgery
PROC: 0SRC0JZ Replacement of Right Knee Joint with Synthetic Substitute, Open Approach (ICD-10-PCS; CPT 27447; principal; 2022-01-02 07:30)
DX: M17.11 Unilateral primary osteoarthritis, right knee (principal); I10 Essential (primary) hypertension; Z87.891 Personal history of nicotine dependence; Z79.899 Other long term (current) drug therapy; Z79.02 Long term (current) use of antithrombotics/antiplatelets
CPT/HCPCS: 36415; 73560; 80048; 82962; 82985; 83735; 85025; 85027; 85610; 85730; 86850; 86870; 86900; 86901; 86902; 86905; 86920; 86922; 87081; 88305; 88311; 93005; 94762; 97110; 97116; 97162; 97166; 97530; 97535; 99251; C1776; J7120; G0463; J0702; J2405; J3490

== ENCOUNTER → 2022-01-15 | Outpatient (CLI) | payer MEDICARE, SELFPAY ==
--- NOTE | 2022-01-15 12:58 | VDLE_ITS ---
Reason For Study: Pain RIGHT LEFT GSV is normal. CFV is compressible, spontaneous, phasic, CFV is compressible, spontaneous, phasic, competent, and demonstrates normal competent and demonstrates normal augmentation. augmentation. FV is compressible, spontaneous, phasic, competent and demonstrates normal augmentation. POP V is compressible, spontaneous, phasic, competent and demonstrates normal augmentation. T/P Trunk is compressible. PTV is compressible. RT PerV is compressible. Acute deep vein thrombosis is noted in the right Gastroc vein. Procedure This is a venous duplex using B-mode, color flow and spectral Doppler. Exam performed in department. A preliminary report was called and/or faxed to [facility]. VL/Venous Duplex US, Unilateral Interpretation Summary Acute deep venous thrombosis right gastrocnemius vein. Patent and compressible right great saphenous vein Normal flow patterns left common femoral vein Ordering Physician: Hakan Jurado Referring Physician: Dawson Laguna Performed By: Adela Redman RVT
== END | disposition home or self-care (01) ==
LOC: CVS 12:51
PROVIDERS: PCP Family Medicine; Visit Provider Physician Assistant
DX: M79.661 Pain in right lower leg (principal); Z96.651 Presence of right artificial knee joint
CPT/HCPCS: 93971

== ENCOUNTER 2022-02-13 11:39 | Day surgery (SDC) | payer MEDICARE, SELFPAY ==
[2022-02-13] MEDS: Lactated Ringers 1,000 ML 15 ML IV (11:55)
[2022-02-13 12:07] VITALS: BP 136/81; PULSE 53; RESP 18; TEMP 36.5; O2SAT 99; BMI 38.7
[2022-02-13] MEDS: Cefazolin 2 GM in 0.9% Normal Saline 100 ML IV (13:57)
--- NOTE | 2022-02-13 13:57 | DCINST_ITS ---
Discharge Instructions Dressing / Incision Call your doctor if you observe: Shortness of breath and Chest pain Additional Dressing/Incision Instructions:: Encourage full knee flexion and extension regularly. Start physical therapy immediately. May shower and return to activities as normal. Keep pain controlled with medications as discussed with Dr. Whelan in order to keep full range of motion. Ice and elevate next 72 hours. Follow-up with Dr. Whelan and call with any questions or concerns. Follow Up Care Please Follow Up With: Jim Whelan DO When: 4 weeks Test Results: Test results from this visit will be discussed in further detail at your follow- up appointment, if applicable. Discharge Plan Admission Attending Provider: Jim Whelan Primary Care Provider: Dawson Laguna Discharge Orders/Prescriptions Prescriptions: New oxycodone 5 mg tablet 5 - 10 mg PO Q4H PRN (Reason: pain) 6 Days Qty: 50 0RF No Action pravastatin 40 MG tablet 40 mg PO QHS valsartan 80 MG tablet 80 mg PO DAILY pantoprazole 40 MG tablet 40 mg PO DAILY acetaminophen 500 mg Tablet 1,000 mg PO Q6H Qty: 100 1RF Eliquis 2.5 mg Tablet 2.5 mg PO BID Qty: 28 0RF Referrals / Follow Up: Dawson Laguna MD [Primary Care Provider] - Disposition Disposition (needs filled in before D/C Order can be placed): Home, Self Care
--- NOTE | 2022-02-13 13:57 | PCM.HP.BLA ---
History and Physical Date of Admission: 02/13/22 [facility] [address] [place] [address] OFFICE VISIT Date of Service:? 02/12/22 MR#: [id number] Acct: [id number] Name:HANNAH ALEXANDER Rep #: [id number] : 1950 ? ? Provider: Dr. Jim Whelan DO Age/Sex:? 71/M ? ? Location: [facility] [email or web address] Status: Signed Intake Vital Signs ? 11/07/2207:22 01/02/2207:12 Height 5 ft 7 in 5 ft 7 in Intake Visit Reasons:?right knee Is patient in pain?: Yes Allergies No Known Allergies Allergy (Verified 02/12/22 09:01) Medications clopidogrel 75 mg tablet 75 mg PO DAILY BLOOD THINNER 12/21/15 [History Confirmed 02/12/22] pantoprazole 40 mg tablet,delayed release 40 mg PO DAILY GERD 12/21/15 [History Confirmed 02/12/22] pravastatin 40 mg tablet 40 mg PO QHS CHOLESTEROL 12/21/15 [History Confirmed 02/12/22] valsartan 80 mg tablet 80 mg PO DAILY BP 12/21/15 [History Confirmed 02/12/22] acetaminophen 500 mg tablet 1,000 mg PO Q6H #100 tabs 01/03/22 [Rx Confirmed 02/12/22] apixaban 2.5 mg tablet (Eliquis) 2.5 mg PO BID #28 tabs 01/03/22 [Rx Confirmed 02/12/22] apixaban 5 mg (74 tabs) tablets in a dose pack (Eliquis DVT-PE Treat 30D Start) 5 mg PO ONCE #74 tabs 01/15/22 [Rx Confirmed 02/12/22] PFSH Medical History?(Updated 02/12/22 @ 10:[address] Jim Whelan DO) Alcohol use Arthritis Former cigar smoker Gastric reflux High cholesterol History of pain when walking HTN (hypertension) Hx of steroid therapy Kidney stones Osteoarthritis of right knee Stroke Wears dentures Surgical History?(Updated 01/03/22 @ 11:[address] Jim Whelan DO) History of hernia repair Hx of left knee surgery Hx of removal of testicle Social History? Smoking Status:? Former smoker HPI right knee Details: Parts of this documentation were recorded by a scribe, this documentation accurately reflects the service provided and the decisions made by me, Dr. Jim Whelan, DO 02/12/22 0744. HANNAH LEBRON is a 71 year old M here today for 6 weeks postop right total knee. dos 01/02/22 To recall patient did have gastrocnemius vein DVT on ultrasound 01/15/2022 he is on blood thinner eliquis. Patient notes that he has constant pain over his lateral calf. Patient rates his pain at a 6 at all times. He states that his knee hurts a little. Patient is doing physical therapy which makes him very sore. Patient has a scab over his incision. Patient has been wearing his compression stocking. Patient has decreased knee flexion. Patient is taking tylenol for pain and continues with his blood thinners. Ortho Exam General General: Yes no acute distress Neurologic: Yes alert Psychologic: Yes reasonable and appropriate Right Knee Skin/Wound: No erythema, No ecchymosis and Yes swelling Knee ROM: Yes ROM-Extension -20 to 0 (-12) and Yes ROM-Flexion 0-140 (96) Stability: NML: Valgus 0, NML: Valgus 30, NML: Varus 0 and NML: Varus 30 KNEE: ttp fibular head, scab at apex of incision. Right Foot/Ankle Pulses: Dorsalis Pedis: 2 and Posterior Tibial: 2 Supplemental Info 01/15/22 Doppler ultrasound right lower extremity: Acute deep venous thrombosis right gastrocnemius vein. Patent and compressible right great saphenous vein Normal flow patterns left common femoral vein 01/10/2022 x-ray right knee: Status post total knee arthroplasty cemented no concern Coding Level of Care Code Global Post Op Diagnoses History of total knee arthroplasty? Z96.651 ? ? ? Laterality: right Stiffness of right knee? M25.661 Arthrofibrosis of knee joint? M24.669 Assessment and Plan Assessment and Plan (1) History of total knee arthroplasty: ?Status:?Acute ?Qualifiers: ?Laterality:?right? Qualified Code(s):?Z96.651 - Presence of right artificial knee joint (2) Stiffness of right knee: (3) Arthrofibrosis of knee joint: ?Status:?Acute ? ? ? Orders: Orders Knee 3 Views Today Z96.659 - Presence of unspecified artificial knee joint ? Medications: Discontinued oxycodone ?? Discontinued Reason:? By Stop Date 5 - 10 mg (1 - 2 x 5 mg) PO Q8H 7 days PRN 42 tabs 0RF Pain Score 6-10/10 G89.18 - Other acute postprocedural pain ? Plan Details Additional Comments: He should continue to wash his incision daily and keep it covered. He will need a doppler in 6 weeks to re-evaluate his DVT. Spoke with the patient aboutthe option for? a manipulation under anesthesia due to his stiffness. Explained he will have increased soreness after the RONY. He should continue with icing. Spoke with him about the risks of a manipulation. Patient wanted to continue with the RONY. Patient has PT scheduled for Saturday. Follow up in 1 month or sooner if pain, swelling, numbness or associated symptoms, or concerns develop.? All questions answered. Patient in agreement of plan. 02/12/22 1048 <Electronically signed by Jim Whelan DO> Date Jim Whelan DO Cosigner Signature: Date (if applicable) ?I have re-examined the patient. There are no clinical changes since date of exam
--- NOTE | 2022-02-13 14:03 | PCM.OPRPT ---
Report of Operation Date of Procedure: 02/13/22 Description of Surgical Findings:: Preoperative diagnosis: Arthrofibrosis [right] knee Postoperative diagnosis: Same Procedure: Manipulation under anesthesia right knee Anesthesia: General EBL: None Complications: None Condition: Able to PACU Indication for procedure: This is a 71-year-old male who underwent total knee arthroplasty approximately 6 weeks ago who is failed to gain her range of motion wish to undergo an elective manipulation under anesthesia to increase range of motion. risk benefits and alternatives were reviewed including risk of bleeding infection nerve, artery, bone, tissue damage, blood clot need for further surgery and continued pain. Procedure: Patient was met in the preoperative holding area once again the operative extremity was identified by both patient and physician and was marked. Patient was brought back to the operating room anesthesia was started. A timeout was called into the proper patient procedure and extremity were being contemplated. The pre-operative range of motion was lacking a few degrees extension and achieving [95 ]degrees flexion. After patient was adequately anesthetized extension manipulation was performed followed by patellar mobilization followed by gradual flexion scar tissue was palpated being released with no concerning signs for tendon rupture or fracture. Postoperative range of motion was much improved with [near full ]extension and 130 degrees of flexion.
[2022-02-13 14:09] VITALS: BP 134/79; BP 136/81; PULSE 52; RESP 16; TEMP 37.2; O2SAT 95
[2022-02-13 14:15] VITALS: BP 136/81; BP 136/85; PULSE 54; RESP 16; O2SAT 95
[2022-02-13 14:30] VITALS: BP 136/81; BP 141/78; PULSE 49; RESP 16; O2SAT 98
[2022-02-13 14:45] VITALS: BP 123/74; BP 136/81; PULSE 49; RESP 16; TEMP 36.8; O2SAT 99
[2022-02-13] MEDS: oxyCODONE 5 MG Tablet 10 MG PO (14:46)
[2022-02-13 15:55] VITALS: BP 127/56; BP 136/81; PULSE 64; RESP 16; TEMP 36.3; O2SAT 99
== END 2022-02-13 16:00 | disposition home or self-care (01) ==
LOC: SDC 11:40 → AC 11:42
PROVIDERS: PCP Family Medicine; Visit Provider Orthopaedic Surgery
PROC: (CPT 27570; principal; 2022-02-13 13:20)
DX: M24.661 Ankylosis, right knee (principal); Z87.891 Personal history of nicotine dependence; Z96.659 Presence of unspecified artificial knee joint; I10 Essential (primary) hypertension; E78.00 Pure hypercholesterolemia, unspecified
CPT/HCPCS: 27570; 01380; 99152; J7120

== ENCOUNTER 2022-02-28 09:00 | Outpatient (RCR) | payer MEDICARE, SELFPAY ==
--- NOTE | 2022-01-05 14:57 | HP.PTEVAL_ITS ---
Patient's Visit Information HANNAH LEBRON is a 71 year old M referred to Physical Therapy by Dr. Jim Whelan DO with a diagnosis of RIGHT TKA. Date of Evaluation: 01/05/22 Physical Therapist: Ranjan Seay, PT, Cert MDT, OCS - Visit Plan Frequency: 2-3x /Week Duration: 6 Weeks Plan: PT INTERVENTIONS GAIT TRAINING,BALANCE TRAINING,AAROM/AROM/PROM ,STRENGTHENING QUADS/HAMS/HIP ,NUSTEP ,FUNCTIONAL STRENGTHNEING ,CP AND VASO NEEDED - Subjective This 71 y/o male presents to physical therapy with right TKA. Patient had knee pain ~ 3months which progressively worse. Patient progressive DJD. Patient did recall having slipping on ice 2months made pain worse. Patient had TKA January 02 at [facility] ,thus d/c January 03 with fww. Patient lives ranch with 2 steps with rails. Patient has tub/shower with tub seat with grab rails. Patient has bedside commode . Patient returns to DR in 2weeks. Patient has long leg stockings. Patient denies paresthesia /tingling . Patient reports fell backwards leaving go of walker. Hit had and had to call [employer] and assist with getting back up and didn't need to go to hospital. Prior level antalgic gait and working 3 x/week. Patient unable to walk in from parking lot. Patient pain affects sleeping. Pain meds Oxycodone. Patient surgery affects QOL and function along with walking and RTW. SOCIAL: . VOCATION: [employer] - Pain Right Knee Pain Intensity (Out of 10): 6 Pain Intensity Range: 10 - Objective POSTURE: mild forward posture Right hip/knee flexed. NEURO: intact denies paresthesia/tingling. GIRTH PATELLA: 48.6. GIRTH 6 SUPRAPATELLA : 60.2. GAIT: ambulates with close SBA 30ft with right knee flexed with poor stance Right leg with decrease step length left slow shelby. BALANCE: fair with fww. AROM: 10-92 degrees supine knee flexion. SKIN: incision well approximate with dressing intact. MMT( peak force) : quads 13.7,hamstrins 13.9 ,hip flexion 12.4. - Balance/Special Test Scores Lower Extremity Functional Score: 6 TUG Test Time Seconds: 26.8 WOMAC Total Score: 91 WOMAC Percentatge: 5.2100 - Goals Goal 1:: I with HEP for TKA Goal Time Frame: 6-8 Weeks Goal 2:: Patient to ambulate with cane with normal shelby community distance Goal Time Frame: 6-8 Weeks Goal 3:: Patient to improve AROM supine knee flexion 5-110 degrees to improve stairs Goal Time Frame: 6-8 Weeks Goal 4:: Patient to improve LFES score by 10 points or > to improve QOL Goal Time Frame: 6-8 Weeks Goal 5:: Patient to improve peak force of quads/hams/hip by 10-15 to improve function Goal Time Frame: 6-8 Weeks Goal 6:: Patient to improve Tug score by < 10seconds to improve gait Goal Time Frame: 6-8 Weeks - Rehabilitation Potential Physical Therapy Diagnosis: This patient underwent s/p TKA with decrease ROM ,strength ,gait ,balance and ADLS' impairs function thus will benefit from skilled PT Rehabilitation Potential: Good - Anticipated Interventions Patient/Client Instruction: Educate patient on: Condition, Plan of Care For the Purpose of:: To decrease pain, To increase ROM, To improve muscle performance and motor function, To improve ability to perform ADL's, To increase tolerance to activity/condition/position, To improve performance and independence with ADL's, To improve ability of physical actions for home/community/work/leisure, To improve gait and locomotor functions, To improve health of tissue, To decrease soft tissue restriction, To increase flexibility/ROM, To improve endurance, To improve balance, To reduce risk of recurrence, To improve health and function, To improve tolerance to ADL's Therapeutic Exercise to Include: Strength training, Endurance training, Balance training, Flexibilty training, Passive ROM, Active ROM For the Purpose of:: To decrease pain, To improve muscle performance and motor function, To improve ability to perform ADL's, To increase tolerance to activity/condition/position, To improve ability of physical actions for home/c ommunity/work/leisure, To improve gait and locomotor functions, To improve health of tissue, To decrease soft tissue restriction, To increase flexibility/ROM, To improve balance, To improve safety with gait, To reduce risk of recurrence, To prevent re-injury, To improve tolerance to ADL's Cryotherapy (ice pack, ice massage): Yes Vasopneumatic device: Yes For the Purpose of:: To decrease swelling/inflammation, To increase ROM, To improve health of tissue, To decrease soft tissue restriction Thank you for the opportunity to evaluate your patient. For Medicare and Medicare HMO plans, please review the plan of care and approve it. It will need to be FAXED BACK to us at [phone] for Medicare purposes. For Medicare only, by signing this I certify the plan of care. Please let me know if there are questions or concerns regarding this plan of care. Physician Signature: Date:
--- NOTE | 2022-06-28 11:28 | HP.PTDCSUM ---
It has been my pleasure to treat HANNAH LEBRON referred by Dr. Jim Whelan DO, with the diagnosis of RIGHT TKA for a total of 17 visit(s). Discharge Date: 02/28/22 Please see the following information for a summary of their discharge status. Subjective: Doing better ,felt much better ready for BRING done with PT Right Knee Pain Intensity (Out of 10): 2 % Improvement: 75 Objective/Function: GAIT: reciprocal pattern with mild decrease swing phase with good balance. AROM: 5 -115 degrees supine flexion. MMT(Peak Force ): quads 46.8,hamstrings 48.2. STAIRS: alternating with stairs with rails Goal 1:: I with HEP for TKA Goal Progress: Goal Met Goal 2:: Patient to ambulate with cane with normal [facility] distance Goal Progress: Goal Met Goal 3:: Patient to improve AROM supine knee flexion 5-110 degrees to improve stairs Goal Progress: Goal Met Goal 4:: Patient to improve LFES score by 10 points or > to improve QOL Goal Progress: Goal Met Goal 5:: Patient to improve peak force of quads/hams/hip by 10-15 to improve function Goal Progress: Goal Met Goal 6:: Patient to improve Tug score by < 10seconds to improve gait Goal Progress: Goal Met Plan: D/C TO [facility]P Discharge Comments: [facility] If there are questions or concerns regarding this patient's physical therapy, please feel free to call me at [phone]. Thank you for the referral of this patient. Sincerely, Ranjan Seay, PT, Cert MDT, OCS Balance/Gait/Functional tests - Balance/Special Test Scores Lower Extremity Functional Score: 56 TUG Test Time Seconds: 26.8 Tug Test: 20-30sec.=variable mobility WOMAC Total Score: 91 WOMAC Percentage: 5.2100
== END 2022-02-28 19:00 | disposition home or self-care (01) ==
LOC: PT 09:00
PROVIDERS: PCP Family Medicine; Referring Provider Orthopaedic Surgery; Visit Provider Orthopaedic Surgery
DX: Z47.1 Aftercare following joint replacement surgery (principal); Z96.651 Presence of right artificial knee joint
CPT/HCPCS: 97016; 97110; 97162; J2405

== ENCOUNTER → 2022-04-26 | Outpatient (CLI) | payer MEDICARE, SELFPAY ==
[2022-04-26 17:43] LABS: Absolute Neutrophil Count 2.9 X10^3/uL (2.0-7.7); Basophil# 0.03 X10^3/uL; Basophil% 0.5 % (0-1); Eosinophil# 0.14 X10^3/uL; Eosinophils% 2.4 % (0-5); Hematocrit 38.4 % (40-54); Hemoglobin 13.3 g/dL (13.0-16.5); Lymphocyte % 38.1 % (19-41); Mean Corp Hgb Conc 34.6 g/dL (32-36); Mean Corpuscular Hgb 30.1 pg (27.0-32.0); Mean Corpuscular Volume 86.9 fL (80-94); Mean Platelet Vol. 11.1 fl (6.2-12.0); Monocyte% 8.7 % (0-10); NRBC Flagged by Analyzer 0 % (0-5); Neutrophil % 50.1 % (47-70); Platelet Count 176 K/mm3 (150-450); RBC Distribution Width CV 12.9 % (11.6-14.6); RBC Distribution Width SD 40.7 fl (35.1-43.9); Red Blood Count 4.42 M/mm3 (4.6-6.2); White Blood Count 5.8 K/mm3 (4.4-11.0)
== END | disposition home or self-care (01) ==
LOC: MFPLAB 16:32
PROVIDERS: PCP Family Medicine; Visit Provider Family Medicine
DX: R23.3 Spontaneous ecchymoses (principal)
CPT/HCPCS: 36415; 85025

== ENCOUNTER → 2022-05-11 | Outpatient (CLI) | payer MEDICARE, SELFPAY ==
--- NOTE | 2022-05-11 08:35 | VDLE_ITS ---
Reason For Study: Recheck DVT RIGHT GSV is normal. CFV is compressible, spontaneous, phasic, competent and demonstrates normal augmentation. FV is compressible, spontaneous, phasic, competent and demonstrates normal augmentation. POP V is compressible, spontaneous, phasic, competent and demonstrates normal augmentation. T/P Trunk is compressible. PTV is compressible. RT PerV is compressible. Rt GastrocV is non dilated and non compressible. Procedure This is a venous duplex using B-mode, color flow and spectral Doppler. Exam performed in department. A preliminary report was called and/or faxed to Dr. Whelan. VL/Venous Duplex US, Unilateral Interpretation Summary Deep venous thrombosis right gastrocnemius vein with improvement noted from the previous study of January 15, 2022. No evidence of any additional deep venous thrombosis involvement. Patent and compressible right great saphenous vein Ordering Physician: Jim Whelan Referring Physician: Dawson Laguna Performed By: Mare Loja, MJ, RVT
== END | disposition home or self-care (01) ==
PROVIDERS: PCP Family Medicine; Referring Provider Orthopaedic Surgery; Visit Provider Orthopaedic Surgery
DX: I82.461 Acute embolism and thrombosis of right calf muscular vein (principal)
CPT/HCPCS: 93971

== ENCOUNTER → 2022-07-12 | Outpatient (CLI) | payer MEDICARE, SELFPAY ==
[2022-07-12 18:05] LABS: Absolute Lymphocyte Count 2.14 X10^3/uL (0.83-4.51); Absolute Neutrophil Count 2.5 X10^3/uL (2.0-7.7); Basophil# 0.04 X10^3/uL; Basophil% 0.7 % (0-1); Eosinophil# 0.14 X10^3/uL; Eosinophils% 2.6 % (0-5); Hematocrit 41.3 % (40-54); Hemoglobin 14.1 g/dL (13.0-16.5); Lymphocyte # 2.14 X10^3/ul (0.83-4.51); Lymphocyte % 39.1 % (19-41); Mean Corp Hgb Conc 34.1 g/dL (32-36); Mean Corpuscular Hgb 30.7 pg (27.0-32.0); Mean Platelet Vol. 11.4 fl (6.2-12.0); Monocyte# 0.64 X10^3/uL; Monocyte% 11.7 % (0-10); NRBC Flagged by Analyzer 0 % (0-5); Neutrophil % 45.7 % (47-70); Platelet Count 175 K/mm3 (150-450); RBC Distribution Width CV 12.4 % (11.6-14.6); RBC Distribution Width SD 40.7 fl (35.1-43.9); Red Blood Count 4.59 M/mm3 (4.6-6.2); White Blood Count 5.5 K/mm3 (4.4-11.0)
== END | disposition home or self-care (01) ==
LOC: MFPLAB 15:14
PROVIDERS: PCP Family Medicine; Visit Provider Family Medicine
DX: K92.1 Melena (principal)
CPT/HCPCS: 36415; 85025

== ENCOUNTER → 2023-11-07 | Outpatient (CLI) | payer MEDICARE, SELFPAY ==
[2023-11-07 13:44] LABS: Anion Gap 4 (5-15); BUN 12 mg/dL (7-18); BUN/Creat Ratio 16.4 RATIO (10-20); Chloride 110 mmol/L (98-107); Cholesterol 173 mg/dL (200); Creatinine, Serum 0.73 mg/dL (0.70-1.30); EST Glomerular Filtration Rate 112 mL/min (>60); Est Glom Filt Rate - Afr Amer 136 mL/min (>60); Glucose 121 mg/dL (74-106); High Density Lipoprotein 28 mg/dL; PSA,Total - Annual Screen 6.71 ng/mL (0.00-4.00); Sodium Level 140 mmol/L (136-145); Triglycerides 336 mg/dL; Very Low Density Lipoprotein 67 mg/dL (5-40)
--- OUTSIDE RECORDS SUMMARY | 2023-11-07 19:05 | XMS RPT_ITS | CCD ---
Author Name Unknown Address [address] [place] [address] [address] [place] [id number] Organization [facility] Results Test Name Value Interpretation Reference Range Facil ity Summary Purpose Family History No Family History Records Found Advance Directives No Advanced Directives Records Found Additional Source Comments (unrecognized sect ion and content) No Status Records Found INFORMATION SOURCE (unrecogn ized section and content) FOR RECORDS PERTAINING TO PATIENTS WHO ARE OR HAVE BEEN ENROLLED IN A CHEMICAL DEPENDENCY/SUBSTANCEABUSE PROGRAM, SOME INFORMATION MAY BE OMITTED. This clinical summary was aggregated from multiple sources. Caution should be exercised in using it in the provision of clinical care. This summary normalizes information from multiple sources, and as a consequence, information in this document may materially change the coding, format and clinical context of patient data. In addition, data may be omitted in some cases. CLINICAL DECISIONS SHOULD BE BASED ON THE PRIMARY CLINICAL RECORDS. [email or web address]. provides no warranty or guarantee of the accuracy or completeness of information in this document.
== END | disposition home or self-care (01) ==
LOC: MFPLAB 10:51
PROVIDERS: PCP Family Medicine; Visit Provider Family Medicine
DX: I10 Essential (primary) hypertension (principal); Z12.5 Encounter for screening for malignant neoplasm of prostate
CPT/HCPCS: 36415; 80048; 80061; 84153; G0103

== ENCOUNTER → 2024-02-11 | Outpatient (CLI) | payer MEDICARE, SELFPAY ==
[2024-02-11 10:38] LABS: PSA,Total- Diagnostic 6.88 ng/mL (0.0-4.0)
== END | disposition home or self-care (01) ==
LOC: LAB 08:55
PROVIDERS: PCP Family Medicine; Referring Provider Urology; Visit Provider Urology
DX: R97.20 Elevated prostate specific antigen [PSA] (principal)
CPT/HCPCS: 36415; 84153

== ENCOUNTER → 2024-10-21 | Outpatient (CLI) | payer MEDICARE, SELFPAY ==
[2024-10-21 16:17] LABS: ALB/GLOB Ratio 1.2 RATIO (0.9-2.4); AST(SGOT) 21 U/L (<=37); Alanine Aminotransfer ALT/SGPT 14 U/L (<=46); Alkaline Phosphatase 58 U/L (40-129); Anion Gap 10 (5-15); BUN 9 mg/dL (4-19); BUN/Creat Ratio 11.1 RATIO (10-20); Calcium 9.2 mg/dL (7.6-11.0); Carbon Dioxide 23.8 mmol/L (22.0-29.0); Chloride 105 mmol/L (96-108); Cholesterol 173 mg/dL (<=200); Creatinine, Serum 0.8 mg/dL (0.8-1.3); EST Glomerular Filtration Rate 92 (>60); Globulin 3.3 g/dL (2.2-4.2); Glucose 113 mg/dL (70-99); High Density Lipoprotein 25 mg/dL; Low Density Lipoprotein Calc. 82 mg/dL; PSA,Total - Annual Screen 6.42 ng/mL (0.02-4.00); Potassium 4.3 mmol/L (3.3-5.1); Protein, Total 7.3 g/dL (5.9-8.4); Sodium Level 139 mmol/L (133-145); Total Bilirubin 1.19 mg/dL (0.00-1.30); Triglycerides 333 mg/dL; Very Low Density Lipoprotein 67 mg/dL (5-40); cholesterol:hdl ratio screen 6.98
== END | disposition home or self-care (01) ==
LOC: MFPLAB 11:55
PROVIDERS: PCP Family Medicine; Referring Provider Family Medicine; Visit Provider Family Medicine
DX: R97.20 Elevated prostate specific antigen [PSA] (principal); E78.00 Pure hypercholesterolemia, unspecified
CPT/HCPCS: 36415; 80053; 80061; 84153; G0103

== ENCOUNTER → 2024-12-17 | Outpatient (CLI) | payer MEDICARE, SELFPAY ==
[2024-12-17 18:16] LABS: Anion Gap 10 (5-15); BUN 9 mg/dL (4-19); BUN/Creat Ratio 12.1 RATIO (10-20); Carbon Dioxide 23.6 mmol/L (21.0-32.0); Chloride 105 mmol/L (98-108); Creatinine, Serum 0.78 mg/dL (0.70-1.20); EST Glomerular Filtration Rate 94 (>60); Glucose 113 mg/dL (70-99); Sodium Level 139 mmol/L (133-145)
[2024-12-17 19:02] LABS: Hemoglobin A1c 6.4 % (<=5.6)
== END | disposition home or self-care (01) ==
LOC: MFPLAB 14:21
PROVIDERS: PCP Family Medicine; Referring Provider Family Medicine; Visit Provider Family Medicine
DX: R35.89 Other polyuria (principal)
CPT/HCPCS: 36415; 80048; 83036

== ENCOUNTER → 2025-01-07 | Outpatient (CLI) | payer MEDICARE, SELFPAY ==
[2025-01-07 12:07] LABS: ALB/GLOB Ratio 1.2 RATIO (0.9-2.4); AST(SGOT) 18 U/L (<=37); Alanine Aminotransfer ALT/SGPT 17 U/L (<=46); Alkaline Phosphatase 62 U/L (40-129); Anion Gap 9 (5-15); BUN 10 mg/dL (4-19); BUN/Creat Ratio 12.6 RATIO (10-20); Calcium,Total 9.1 mg/dL (7.6-11.0); Chloride 105 mmol/L (98-108); EST Glomerular Filtration Rate 93 (>60); Globulin 3.2 g/dL (2.2-4.2); Glucose 137 mg/dL (70-99); Potassium 4.2 mmol/L (3.3-5.1); Protein, Total 7.2 g/dL (5.9-8.4); Sodium Level 139 mmol/L (133-145); Total Bilirubin 1.98 mg/dL (0.00-1.30)
== END | disposition home or self-care (01) ==
LOC: LAB 10:44
PROVIDERS: PCP Family Medicine; Referring Provider Internal Medicine Cardiovascular Disease; Visit Provider Internal Medicine Cardiovascular Disease
DX: I10 Essential (primary) hypertension (principal); I48.91 Unspecified atrial fibrillation
CPT/HCPCS: 36415; 80053; 84443

== ENCOUNTER → 2025-02-18 | Outpatient (CLI) | payer MEDICARE, SELFPAY ==
--- OUTSIDE RECORDS SUMMARY | 2025-02-18 06:35 | XMS RPT_ITS | CCD ---
Author Organization [facility] Care Team Providers Care Bottom Worker Name Role Phone Dr. Dawson Laguna Primary Care Provider [facility][phone] Dr. Dawson Laguna Referring Provider 1([facility])[phone] Jim Whelan Attending Provider 1([facility]) -3420 Richard GIL, JAVAD De La Paz Attending Provider 1([facility])[phone] Dr. Dawson Larose Attending Provider 1([facility])[phone] Dr. Jim Whelan Referring Provider 1([facility]) -3420 Dr. Jim Whelan Admit Provider 1([facility])[phone] Jim Whelan Other Provider 1([facility])[phone] BEN Daily Attending Provider 1([facility])[phone] Dr. Clifford Sow Attending Provider 1([facility])[phone] Cuong Crenshaw Attending Provider 1([facility])[phone] Dr. Dawson Laguna Primary Care Provider 1([facility])[phone] Dr. Jim Whelan Attending Provider 1([facility])[phone] Dr. Jim Whelan Referring Provider 1([facility])[phone] Dr. Dawson Laguna Referring Provider 1([facility])[phone] BEN Daily Referring Provider 1([facility])[phone] BEN Alejandro Attending Provider 1([facility])- 3420 Dr. Dawson Laguna Primary Care Provider 1([facility])[phone] Dr. Dawson Laguna Referring Provider 1([facility])[phone] BEN Daily Attending Provider 1([facility]) -3420 Dr. Jim Whelan Attending Provider Dr. Jim Whelan Other Provider Dr. Clifford Sow Attending Provider Dr. Jim Whelan Referring Provider Luz Elena CAMILO, Dr. Osman Primary Care Provider [phone] Luz Elena CAMILO, Dr. Osman Attending Provider Luz Elena CAMILO, Dr. Osman Referring Provider Dr. Jim Whelan DO Attending Provider Juanjose CAMILO, Dr. Horton Attending Provider Franklin CAMILO, Dr. Reyes Attending Provider Franklin CAMILO, Dr. Reyes Referring Provider Luz Elena, Dawson Primary Care Unavailable Laguna, Dawson Attending Unavailable Laguna, Dawson Referring Unavailable Laguna, Dawson Primary Care Unavailable Laguna, Dawson Attending Unavailable Laguna, Dawson Referring Unavailable Laguna, Dawson Primary Care Unavailable Franklin, Amy Attending Unavailable Franklin, Amy Referring Unavailable Laguna, Dawson Primary Care Unavailable Franklin, Amy Attending Unavailable Franklin, Amy Referring Unavailable Laguna, Dawson Primary Care Unavailable Clifford Sow Attending Unavailable Laguna, Dawson Primary Care Unavailable Angelaruwatson, Jim Attending Unavailable Laguna, Dawson Referring Unavailable Laguna, Dawson Primary Care Unavailable Franklin, Amy Attending Unavailable Laguna, Dawson Referring Unavailable Medications Current Medications Medication Drug Class(es) Dates Sig (Normalized) Sig (Original) metoprolol tartrate 25 mg oral tablet (2 sources) beta-Adrenergic Maeve Start: 12-31-2024 take 1 tablet by mouth twice daily Metoprolol Tartrate 25 mg tablet Active 25 mg PO TWICE A DAY December 31, 2024 12:00am pantoprazole 40 mg delayed release oral tablet (8 sources) Proton Pump Inhibitor Start: 12-21-2015 take 1 tablet by mouth once daily Pantoprazole 40 MG tablet Active 40 mg PO DAILY December 21, 2015 12:00am pravastatin sodium 40 mg oral tablet (8 sources) HMG-CoA Reductase Inhibitor Start: 12-21-2015 take 1 tablet by mouth at bedtime Pravastatin 40 MG tablet Active 40 mg PO AT BEDTIME December 21, 2015 12:00am rivaroxaban 20 mg oral tablet (2 sources) Factor Xa Inhibitor Start: 01-07-2025 take 1 tablet by mouth once daily Rivaroxaban (Xarelto) 20 mg tablet Active 20 mg PO daily January 07, 2025 12:00am tamsulosin hydrochloride 0.4 mg oral capsule (2 sources) alpha-Adrenergic Maeve Start: 12-31-2024 take 1 capsule by mouth once daily Tamsulosin 0.4 mg capsule Active 0.4 mg PO daily December 31, 2024 12:00am traMADol hydrochloride 50 mg oral tablet (6 sources) Opioid Agonist Start: 12-31-2024 take 2 tablets by mouth twice daily Tramadol 50 mg tablet Active 100 mg PO TWICE A DAY December 31, 2024 10:56am Start: 11-28-2022 End: 12-31-2024 Tramadol 50 mg tablet Discon tinued 50 mg PO as needed November 28, 2022 12:00am December 31, 2024 10:59am valsartan 80 mg oral tablet (10 sources) Angiotensin 2 Receptor Maeve Start: 12-31-2024 take 1 tablet by mouth once daily Valsartan 80 mg tablet Active 80 mg PO daily December 31, 2024 12:00am Start: 12-21-2015 End: 05-09-2023 take 1 tablet by mouth once daily Valsartan 80 MG tablet Discontinued 80 mg PO DAILY December 21, 2015 12:00am May 09, 2023 11:26am Completed/Discontinued Medications Medication Drug Class(es) Dates Sig (Normalized) Sig (Original) acetaminophen 500 mg oral tablet (7 sources) Start: 01-03-2022 End: 12-31-2024 take 2 tablets by mouth every six hours Acetaminophen 500 mg Tablet Discontinued 1000 mg PO EVERY 6 HOURS January 03, 2022 12:00am December 31, 2024 10:59am Start: 01-03-2022 take 1000 mg by mout h every six hours Acetaminophen Active 1000 MG PO EVERY 6 HOURS January 03, 2022 12:00am acetaminophen 325 mg / oxyCODONE hydrochloride 5 mg oral tablet (8 sources) Opioid Agonist Start: 12-27-2015 End: 04-17-2021 Oxycodone-Acetaminophen 1 TABLET tablet Discontinued 1 - 2 {tbl} PO EVERY 4 HOURS NEEDED as needed for Pain December 27, 2015 12:00am April 17, 2021 1:45pm Start: 12-27-2015 End: 04-17-2021 take 1 tablet by mouth every four hours as needed Oxycodone-Acetaminophen Discontinued 1 - 2 TABLET PO EVERY 4 HOURS NEEDED December 27, 2015 12:00am April 17, 2021 1:45pm apixaban 5 mg oral tablet (20 sources) Factor Xa Inhibitor Start: 12-31-2024 End: 01-07-2025 take 1 tablet by mouth twice daily Apixaban (Eliquis) 5 mg tablet Discontinued 5 mg PO TWICE A DAY December 31, 2024 12:00am January 07, 2025 10:03am Start: 02-16-2022 End: 11-28-2022 take 1 tablet by mouth twice daily Apixaban (Eliquis Dvt-Pe Treat 30d Start) 5 mg (74 tabs) tablets,dose pack Discontinued 5 mg PO TWICE A DAY 60 February 16, 2022 2:44pm February 16, 2022 2:48pm Start: 01-15-2022 take 1 tablet by mouth once Ap ixaban (Eliquis Dvt-Pe Treat 30d Start) 5 mg (74 tabs) tablets,dose pack Active 5 MG PO ONCE 74 January 15, 2022 3:00pm take tablets by mouth as directed Start: 01-03-2022 End: 11-28-2022 take 1 tablet by mouth twice daily Apixaban (Eliquis) 2.5 mg Tablet Discontinued 2.5 mg PO TWICE A DAY January 03, 2022 12:00am November 28, 2022 8:09am On Hold: Order Changed clopidogrel 75 mg oral tablet (8 sources) [id number] Platelet Inhibitor Start: 11-28-2022 End: 12-31-2024 take 1 tablet by mouth once daily Clopidogrel 75 mg tablet Discontinued 75 mg PO daily December 31, 2024 10:58am December 31, 2024 11:00am Start: 12-21-2015 take 75 mg by mouth once daily Clopidogrel Active 75 MG PO DAILY December 21, 2015 9:38am docusate sodium 100 mg oral capsule (8 sources) Start: 12-27-2015 End: 04-17-2021 take 1 capsule by mouth twice daily as needed for constipation Docusate Sodium (Colace) 100 MG capsule Discontinued 100 mg PO TWICE DAILY NEEDED as needed for Constipation December 27, 2015 12:00am April 17, 2021 1:46pm niacin 500 mg oral tablet (8 sources) Nicotinic Acid Start: 12-21-2015 End: 04-17-2021 take 1 tablet by mouth once daily Niacin 500 MG tablet Discontinued 500 mg PO DAILY December 21, 2015 12:00am April 17, 2021 1:45pm [place]-3 Fatty Acids-Fish Oil (Fish Oil 1,000 Mg Capsule) 1 EACH capsule (8 sources) Start: 12-21-2015 End: 04-17-2021 [place]-3 Fatty Acids-Fish Oil (Fish Oil 1,000 Mg Capsule) 1 EACH capsule Discontinued 1 EACH PO TWICE A DAY December 21, 2015 8:19am April 17, 2021 1:45pm Start: 12-21-2015 End: 04-17-2021 [place]-3 Fatty Acids-Fish Oil (Fish Oil 1,000 Mg Capsule) 1 EACH capsule Discontinued 1 NMA PO TWICE A DAY December 21, 2015 12:00am April 17, 2021 1:45pm Start: 12-21-2015 End: 04-17-2021 [place]-3 Fatty Acids-Fish Oil (Fish Oil 1,000 Mg Capsule) 1 EACH capsule Discontinued 1 EACH PO TWICE A DAY December 21, 2015 12:00am April 17, 2021 1:45pm oxyCODONE hydrochloride 5 mg oral tablet (20 sources) Opioid Agonist Start: 02-23-2022 End: 03-02-2022 take 5-10 mg by mouth every six hours as needed for pain Oxycodone 5 mg tablet Discontinued 5 - 10 mg PO EVERY 6 HOURS as needed for Pain Score 6-10/10 56 7 February 23, 2022 March 01, 2022 12:00am March 02, 2022 12:04am Start: 02-13-2022 End: 02-23-2022 take 5-10 mg by mouth every four hours as needed for pain Oxycodone 5 mg tablet Discontinued 5 - 10 mg PO Q4H as needed for pain 50 6 February 21, 2022 February 23, 2022 10:45am Start: 02-05-2022 End: 02-12-2022 take 5-10 mg by mouth every eight hours as needed for pain Oxycodone 5 mg tablet Discontinued 5 - 10 mg PO Q8H as needed for Pain Score 6-10/10 42 7 February 05, 2022 February 11, 2022 12:00am February 12, 2022 12:03am Start: 01-24-2022 End: 02-05-2022 take 5-10 mg by mouth every six hours as needed for pain Oxycodone 5 mg tablet Discontinued 5 - 10 mg PO EVERY 6 HOURS as needed for Pain Score 6-10/10 56 7 January 29, 2022 February 04, 2022 12:00am February 05, 2022 12:03am Start: 01-11-2022 End: 01-20-2022 take 5-10 mg by mouth every four to six hours as needed for pain Oxycodone 5 mg tablet Discontinued 5 - 10 mg PO .COMPLEX as needed for Pain Score 4-10 40 5 January 15, 2022 January 19, 2022 12:00am January 20, 2022 12:05am 5 - 10 mg PO Q 4-6 hours PRN; Start: 01-03-2022 End: 01-20-2022 take 5-15 mg by mouth every four hours as needed for pain Oxycodone 5 mg tablet Discontinued 5 - 15 mg PO Q4H as needed for Pain Score 6-10/10 56 7 January 05, 2022 January 11, 2022 12:00am January 12, 2022 12:05am promethazine hydrochloride 25 mg oral tablet (8 sources) Phenothiazine Start: 12-27-2015 End: 04-17-2021 take 1 tablet by mouth every four hours as needed for nausea Promethazine 25 MG tablet Discontinued 25 mg PO EVERY 4 HOURS NEEDED as needed for Nausea December 27, 2015 12:00am April 17, 2021 1:45pm Problems Active Problems Problem Classification Problem Date Documented Da te Episodic/Chronic Acute cerebrovascular disease (8 sources) Cerebrovascular accident; Translations: [Cerebral infarction, unspecified] 12-19-2021 Chronic Comment on above: NO RESIDUAL Cardiac dysrhythmias (5 sources) Atrial fibrillation; Translations: [Unspecified atrial fibrillation] Onset: 01-07-2025 12-31-2024 Chronic E Codes: Fall (4 sources) Fall; Translations: [Unspecified fall, initial encounter] 05-09-2023 Episodic Essential hypertension (10 sources) Hypertensive disorder; Translations: [Essential (primary) hypertension] Onset: 01-12-2025 12-19-2021 Chronic Comment on above: CONTROLLED ON MED Genitourinary symptoms and ill-defined conditions (1 source) Other polyuria; Translations: [Other polyuria] Onset: 12-23-2024 Episodic Immunizations and screening for infectious disease (8 sources) Contact with and (suspected) exposure to other viral communicable diseases; Translations: [Contact with or suspected exposure to other viral communicable disease] 04-17-2021 Episodic Osteoarthritis (10 sources) Osteoarthritis of right knee joint; Translations: [Unilateral primary osteoarthritis, right knee] Chronic Other aftercare (6 sources) Follow-up status; Translations: [Encounter for other orthopedic aftercare] 03-12-2022 Episodic Other aftercare (2 sources) Encounter for other orthopedic aftercare; Translations: [Unspecified orthopedic aftercare] Episodic Other circulatory disease (3 sources) History of cerebrovascular accident; Translations: [Personal history of transient ischemic attack (TIA), and cerebral infarction without residual deficits] 01-07-2025 Episodic Other circulatory disease (1 source) Personal history of transient ischemic attack (TIA), and cerebral infarction without residual deficits; Translations: [Personal history of transient ischemic attack (TIA), and cerebral infarction without residual deficits] Onset: 02-11-2025 Episodic Other connective tissue disease (20 sources) History of total knee arthroplasty; Translations: [Presence of unspecified artificial knee joint] 05-09-2023 Chronic Other connective tissue disease (15 sources) Presence of unspecified artificial knee joint; Translations: [Knee joint replacement] Chronic Other connective tissue disease (1 source) Presence of right artificial knee joint; Translations: [Presence of right artificial knee joint] Onset: 10-28-2024 Chronic Other connective tissue disease (3 sources) Suspected respiratory disease; Translations: [Other symptoms and signs involving the nervous system] 01-07-2025 Episodic Other nervous system disorders (13 sources) Acute postoperative pain; Translations: [Other acute postprocedural pain] 01-03-2022 Episodic Other nervous system disorders (7 sources) Other acute postprocedural pain; Translations: [Other acute postoperative pain] Episodic Other non-traumatic joint disorders (2 sources) Arthropathy of knee joint; Translations: [Ankylosis, unspecified knee] Chronic Other non-traumatic joint disorders (8 sources) Ankylosis, unspecified knee; Translations: [Ankylosis of joint, lower leg] Chronic Other non-traumatic joint disorders (4 sources) Stiffness of right knee, not elsewhere classified; Translations: [Stiffness of joint, not elsewhere classified, lower leg] Episodic Other nutritional; endocrine; and metabolic disorders (3 sources) Body mass index 30+ - obesity; Translations: [Obesity, unspecified] 01-07-2025 Chronic Other upper respiratory infections (20 sources) Upper respiratory infection; Translations: [Acute upper respiratory infection, unspecified] Episodic Comment on above: viral. strep negativ e. encouraged rest, hydration, OTC for symptom relief. follow up with PCP if worsening or no improvement. Phlebitis; thrombophlebitis and thromboembolism (6 sources) Deep venous thrombosis of lower extremity; Translations: [Acute embolism and thrombosis of unspecified deep veins of right lower extremity] 02-16-2022 Episodic Residual codes; unclassified (8 sources) History of hernia repair; Translations: [Other specified postprocedural states] 04-17-2021 Episodic Superficial injury; contusion (4 sources) Contusion of right knee; Translations: [Contusion of right knee, initial encounter] 05-09-2023 Episodic Unclassified (2 sources) Suspected sleep apnea; Translations: [R29.818 - Other symptoms and signs involving the nervous system] Past or Other Problems Problem Classification Problem Date Documented Da te Episodic/Chronic Other screening for suspected conditions (not mental disorders or infectious disease) (1 source) Elevated prostate specific antigen [PSA]; Translations: [Elevated prostate specific antigen [PSA]] Onset: 11-05-2024 Episodic Results Test Name Value Interpretation Reference Range Facility Anion gap in Serum or Plasma Ordered By: Amy Reid on 01-07-2025 Anion gap [Moles/Vol] 9 mmol/L 5-15 [facility] BUN/creatinine ratioOrdered By: Amy Reid on 01-07-2025 Urea nitrogen/Creatinine [Mass ratio] 12.6 mg[facility] 10[facility] Bilirubin, totalOrdered By: Amy Reid on 01-07-2025 Bilirubin [Mass/Vol] 1.98 mg/dL High 0.00-1.30 [facility] Carbon dioxide, total [Moles /volume] in Central venous bloodOrdered By: mAy Reid on 01-07-2025 CO2 [Moles/Vol] 25.0 mmol/L 21.0-32.0 [facility] Visit Reporton Cardiology Visit Report [facility] [address] [place] [address] OFFICE VISIT Date of Service: 01/07/25 MR#: [id number] Acct: [id number] Name: HANNAH LEBRON Rep #: [id number] : 1950 Provider: Dr. Amy Reid MD Age/Sex: 74/M Location: [facility] Status: Signed HPI HPI History of Present Illness Details: This gentleman has a past medical history significant for hypertension and CVA. He was recently at his primary care physician's office where and he was diagnosed with new onset atrial fibrillation. Subsequently he was started on anticoagulation and metoprolol. Here for further evaluation and management. Patient denies any palpitations. Denies any chest pains or shortness of breath either at rest or with exertion. Denies any orthopnea or PND. No ankle edema. Per patient's , patient does snore loudly at night and on occasions seem to stop breathing only to restart with a grunt. Denies any history of abnormal bleeding. No frequent falls. 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 Accompanied by: Is patient in pain?: Yes (left chest s/p fall) Pain scale (1-10): 5 Allergies No Known Allergies Allergy (Verified 01/07/25 10:02) Medications ???Medication ???Instructions ???Recorded ???Confirmed ???Type pantoprazole 40 mg tablet,delayed 40 mg PO DAILY GERD 12/21/1512/24 History release pravastatin 40 mg tablet 40 mg PO QHS CHOLESTEROL 12/21/15 12/31/24 History metoprolol tartrate 25 mg tablet 25 mg PO BID 12/31/24 01/07/25 His tory tamsulosin 0.4 mg capsule 0.4 mg PO QDAY 12/31/24 01/07/25 H istory tramadol 50 mg tablet 100 mg PO BID 12/31/24 01/07/25 Hi story valsartan 80 mg tablet 80 mg PO QDAY 12/31/24 01/07/25 Hi story rivaroxaban 20 mg tablet (Xarelto) 20 mg PO QDAY 01/07/25 01/07/25 History Have you fallen in the past year?: Yes (residual pain in L-Chest; s/p 2wk fall) PFSH Medical History Alcohol use Arthritis Atrial fibrillation Former cigar smoker Gastric reflux High cholesterol History of pain when walking HTN (hypertension) Hx of steroid therapy Kidney stones Osteoarthritis of right knee Right leg DVT Stroke Wears dentures Surgical History History of hernia repair History of total right knee replacement Hx of left knee surgery Hx of removal of testicle Hx of total knee arthroplasty S/P total knee arthroplasty Social History Smoking Status: Never smoker alcohol intake: never substance use type: does not use ROS Const Const: Positive for fatigue; Negative for weakness, headache(s) or weight gain ENT ENT: Positive for balance problems; Negative for headache(s), dizziness or Nosebleed/epistaxis Cardio Chest Pain: No Palpitations: Yes feels like its: fast Edema: None Muscle aches with walking: None Resp Respiratory: Positive for SOB with activity, SOB at rest (with elevated HR) and Cough (hurts chest s/p fall); Negative for SOB orthopnea SOB lying down GI GI: Positive for heartburn (chronic; on medication); Negative nausea or vomiting Musc Musc: Positive for balance problems; Negative for muscle aches/ myalgia, muscle weakness or joint pain Neuro Neuro: Negative for dizziness, lightheadedness, near syncope, syncope, headache(s) or weakness Endo Endo: Positive for fatigue Cardiology Exam Const Appearance: comfortable and no acute distress Nutritional Appearance: obese Neck Neck: no JVD Carotids: Negative bruit Chest Auscultation: Bilateral: Clear to Auscultation Cardio Rate: regular rate Rhythm: regular rhythm Heart sounds: S1 normal and S2 normal GI GI: obese Neuro General: patient alert, patient awake and patient oriented x3 Extremities Lower Extremity Edema: None: Bilateral Assessment and Plan Assessment and Plan (1) Atrial fibrillation: Status: Acute Plan: Continue metoprolol. On rivaroxaban for anticoagulation. Risks and benefit explained to the patient and his in detail. They understand and agree to continue with anticoagulation. Check echocardiogram. Check Lexiscan stress Myoview. Evaluate for sleep apnea. Check TSH. (2) HTN (hypertension): Status: Chronic Plan: Valsartan and metoprolol. (3) History of CVA (cerebrovascular accident): Status: Resolved Plan: No residual deficit. (4) Suspected sleep apnea: Status: Chron (more content not included)... Normal [facility] Chloride assayOrdered By: Justin Reid on 01-07-2025 Chloride [Moles/Vol] 105 mmol/L 98-108 [facility] Comprehensive Metabolic Prof ilon 01-07-2025 Albumin [Mass/Vol] 4.0 g/dL Normal 3.4-4.8 [facility] Comment on above: Performed By: #### L 500.4050, L588.7399 #### [facility] [address] [place], [address] Albumin/Globulin [Mass ratio] 1.2 {ratio} Normal 0.9-2.4 [facility] Comment on above: Performed By: #### L 500.4050, L514.8120 #### [facility] [address] [place], [address] ALK PHOS 62 U/L Normal 40-129 [facility] Comment on above: Performed By: #### L 500.4050, L536.3720 #### [facility] [address] [place], [address] ALT [Catalytic activity/Vol] 17 U/L Normal <=46 [facility] Comment on above: Performed By: #### L 500.4050, [id number] #### [facility] [address] [place], [address] AST [Catalytic activity/Vol] 18 U/L Normal <=37 [facility] Comment on above: Performed By: #### L 500.4050, [id number] #### [facility] [address] [place], [address] Bilirubin [Mass/Vol] 1.98 mg/dL High 0.00-1.30 [facility] Comment on above: Performed By: #### L 500.4050, [id number] #### [facility] [address] [place], [address] BUN/CRE 12.6 RATIO Normal 10-20 [facility] Comment on above: Performed By: #### L 500.4050, [id number] #### [facility] [address] [place], [address] Calcium [Mass/Vol] 9.1 mg/dL Normal 7.6-11.0 [facility] Comment on above: Performed By: #### L 500.4050, [id number] #### [facility] [address] [place], [address] Chloride [Moles/Vol] 105 mmol/L Normal 98-108 [facility] Comment on above: Performed By: #### L 500.4050, [id number] #### [facility] [address] [place], [address] CO2 [Moles/Vol] 25.0 mmol/L Normal 21.0-32.0 [facility] Comment on above: Performed By: #### L 500.4050, [id number] #### [facility] [address] [place], [address] Creatinine [Mass/Vol] 0.80 mg/dL Normal 0.70-1.20 [facility] Comment on above: Performed By: #### L 500.4050, [id number] #### [facility] [address] [place], [address] GAP 9 Normal 5-15 [facility] Comment on above: Performed By: #### L 500.4050, [id number] #### [facility] [address] [place], [address] GFR/1.73 sq M.predicted among non-blacks MDRD (S/P/Bld) [Vol rate/Area] 93 mL/min/{1.73_m2} Normal >60 [facility] Comment on above: Result Comment: mL/m in/1.73m2 CKD-EPI Creatinine Equation (2020) Performed By: #### L 500.4050, [id number] #### [facility] [address] [place], [address] Globulin (S) [Mass/Vol] 3.2 g/dL Normal 2.2-4.2 [facility] Comment on above: Performed By: #### L 500.4050, [id number] #### [facility] [address] [place], [address] Glucose [Mass/Vol] 137 mg/dL High 70-99 [facility] Comment on above: Performed By: #### L 500.4050, [id number] #### [facility] [address] [place], [address] Potassium [Moles/Vol] 4.2 mmol/L Normal 3.3-5.1 [facility] Comment on above: Performed By: #### L 500.4050, [id number] #### [facility] [address] [place], [address] Sodium [Moles/Vol] 139 mmol/L Normal 133-145 [facility] Comment on above: Performed By: #### L 500.4050, [id number] #### [facility] [address] [place], [address] T PROT 7.2 g/dL Normal 5.9-8.4 [facility] Comment on above: Performed By: #### L 500.4050, [id number] #### [facility] [address] [place], [address] Urea nitrogen [Mass/Vol] 10 mg/dL Normal 4-19 [facility] Comment on above: Performed By: #### L 500.4050, [id number] #### [facility] [address] [place], [address] Glomerular filtration rate ( GFR) estimation/1.73 sq m using serum, plasma, or whole bOrdered By: Amy Reid on 01-07-2025 GFR/1.73 sq M.predicted among non-blacks MDRD (S/P/Bld) [Vol rate/Area] 93 mL/min/{1.73_m2} >60 [facility] Comment on above: mL/min/1.73m2 CKD-EP I Creatinine Equation (2020) Laboratory - Chemistry and C hemistry - challengeOrdered By: Amy Reid on 01-07-2025 AST [Catalytic activity/Vol] 18 U/L <38 [facility] Potassium measurement (mass/ volume)Ordered By: Amy Reid on 01-07-2025 Potassium (Unsp spec) [Mass/Vol] 4.2 mmol/L 3.3-5.1 [place] Serum creatinine measurement (mass/volume)Ordered By: Amy Reid on 01-07-2025 Creatinine [Mass/Vol] 0.80 mg/dL 0.70-1.20 [facility] Serum globulin measurementOr dered By: Amy Reid on 01-07-2025 Globulin (S) [Mass/Vol] 3.2 g/dL 2.2-4.2 [facility] Serum glucose measurement (m ass/volume)Ordered By: Amy Reid on 01-07-2025 Glucose [Mass/Vol] 137 mg/dL High 70-99 [facility] Serum or plasma alanine gaming otransferase (ALT) measurementOrdered By: Amy Reid on 01-07-2025 ALT [Catalytic activity/Vol] 17 U/L <47 [place] Serum or plasma albumin chiquis urement (mass/volume)Ordered By: Amyelma Reid on 01-07-2025 Albumin [Mass/Vol] 4.0 g/dL 3.4-4.8 [facility] Serum or plasma albumin/glob ulin mass ratioOrdered By: Aym Franklin on 01-07-2025 Albumin/Globulin [Mass ratio] 1.2 {ratio} 0.9-2.4 [place] Serum or plasma alkaline kuldip sphatase measurementOrdered By: Amyelma Reid on 01-07-2025 ALP [Catalytic activity/Vol] 62 U/L 40-129 [place] Serum or plasma calcium chiquis urement (mass/volume)Ordered By: Amyelma Reid on 01-07-2025 Calcium [Mass/Vol] 9.1 mg/dL 7.6-11.0 [facility] Serum or plasma urea nitroge n measurement (mass/volume)Ordered By: Amy Reid on 01-07-2025 Urea nitrogen [Mass/Vol] 10 mg/dL 4-19 [place] Sodium levelOrdered By: Hakan Reid on 01-07-2025 Sodium [Moles/Vol] 139 mmol/L 133-145 [facility] TSH DL <= 0.005 mIU/L QnOrde red By: Amy Reid on 01-07-2025 TSH Qn 1.030 uIU/mL 0.300-4.200 [place] Thyroid Stim Hormone (TSH)on 01-07-2025 TSH 1.030 uIU/mL Normal 0.300-4.200 [place] Comment on above: Performed By: #### L 500.4050, L501.9520 #### [facility] [place], [address] Total proteinOrdered By: Bree Reid on 01-07-2025 Protein [Mass/Vol] 7.2 g/dL 5.9-8.4 [facility] Anion gap in Serum or Plasma Ordered By: Dawson Laguna on 12-17-2024 Anion gap [Moles/Vol] 10 mmol/L 01-07 [facility] BUN/creatinine ratioOrdered By: Dawson Laguna on 12-17-2024 Urea nitrogen/Creatinine [Mass ratio] 12.1 mg/mg 06-14 [place] Basic Metabolic Profile (BMP )on 12-17-2024 BUN/CRE 12.1 RATIO Normal 06-14 [place] Comment on above: Performed By: #### L 500.2500, L501.9985 #### [facility] [address] [place], [address] Calcium [Mass/Vol] 9.0 mg/dL Normal 7.6-11.0 [facility] Comment on above: Performed By: #### L 500.2500, L501.9985 #### [facility] [address] [place], [address] Chloride [Moles/Vol] 105 mmol/L Normal 98-108 [facility] Comment on above: Performed By: #### L 500.2500, L501.9985 #### [facility] [address] [place], [address] CO2 [Moles/Vol] 23.6 mmol/L Normal 21.0-32.0 [place] Comment on above: Performed By: #### L 500.2500, L501.9985 #### [facility] [address] [place], [address] Creatinine [Mass/Vol] 0.78 mg/dL Normal 0.70-1.20 [facility] Comment on above: Performed By: #### L 500.2500, L501.9985 #### [facility] [address] [place], [address] GAP 10 Normal 5-15 [place] Comment on above: Performed By: #### L 500.2500, L501.9985 #### [facility] [address] [place], [address] GFR/1.73 sq M.predicted among non-blacks MDRD (S/P/Bld) [Vol rate/Area] 94 mL/min/{1.73_m2} Normal >60 [place] Comment on above: Result Comment: mL/m in/1.73m2 CKD-EPI Creatinine Equation (2020) Performed By: #### L 500.2500, L501.9985 #### [facility] [address] [place], [address] Glucose [Mass/Vol] 113 mg/dL High 70-99 [facility] Comment on above: Performed By: #### L 500.2500, L501.9985 #### [facility] [address] [place], [address] Potassium [Moles/Vol] 4.0 mmol/L Normal 3.3-5.1 [facility] Comment on above: Performed By: #### L 500.2500, L501.9985 #### [facility] [address] [place], [address] Sodium [Moles/Vol] 139 mmol/L Normal 133-145 [facility] Comment on above: Performed By: #### L 500.2500, L501.9985 #### [facility] [address] [place], [address] Urea nitrogen [Mass/Vol] 9 mg/dL Normal 4-19 [place] Comment on above: Performed By: #### L 500.2500, L501.9985 #### [facility] [address] [place], [address] Carbon dioxide, total [Moles /volume] in Central venous bloodOrdered By: Dawson Laguna on 12-17-2024 CO2 [Moles/Vol] 23.6 mmol/L 21.0-32.0 [facility] Chloride assayOrdered By: Ben Laguna on 12-17-2024 Chloride [Moles/Vol] 105 mmol/L 98-108 [facility] Glomerular filtration rate ( GFR) estimation/1.73 sq m using serum, plasma, or whole bOrdered By: Dawson Laguna on 12-17-2024 GFR/1.73 sq M.predicted among non-blacks MDRD (S/P/Bld) [Vol rate/Area] 94 mL/min/{1.73_m2} >60 [place] Comment on above: mL/min/1.73m2 CKD-EP I Creatinine Equation (2020) Hemoglobin A1con 12-17-2024 HbA1c (Bld) [Mass fraction] 6.4 % High <=5.6 [place] Comment on above: Result Comment: Norm al < 5.7 % Prediabetic 5.7 - 6.4 % Diabetic >or= 6.5 % Please note range changes. Performed By: #### L 500.2500, L501.9985 #### [facility] [address] [facility] [place], [place], [id number] Hemoglobin A1c percentageOrd ered By: Dawson Laguna on 12-17-2024 HbA1c (Bld) [Mass fraction] 6.4 % High <5.7 [facility] Comment on above: Normal < 5.7 % Predi abetic 5.7 - 6.4 % Diabetic >or= 6.5 % Please note range changes. Potassium measurement (mass/ volume)Ordered By: Dawson Laguna on 12-17-2024 Potassium (Unsp spec) [Mass/Vol] 4.0 mmol/L 3.3-5.1 [place] Serum creatinine measurement (mass/volume)Ordered By: Dawson Laguna on 12-17-2024 Creatinine [Mass/Vol] 0.78 mg/dL 0.70-1.20 [facility] Serum glucose measurement (m ass/volume)Ordered By: Dawson Laguna on 12-17-2024 Glucose [Mass/Vol] 113 mg/dL High 70-99 [facility] Serum or plasma calcium chiquis urement (mass/volume)Ordered By: Dawson Laguna on 12-17-2024 Calcium [Mass/Vol] 9.0 mg/dL 7.6-11.0 [facility] Serum or plasma urea nitroge n measurement (mass/volume)Ordered By: Dawson Laguna on 12-17-2024 Urea nitrogen [Mass/Vol] 9 mg/dL 4-19 [place] Sodium levelOrdered By: Dawson Laguna on 12-17-2024 Sodium [Moles/Vol] 139 mmol/L 133-145 [facility] Knee 3 Viewson 10-28-2024 Knee 3 Views [facility] Services [address] [place], [place] [address] Knee 3 Views MR#: [id number] Acct: [id number] Name: VI,HANNAH GTZ Rep #: [id number] : 1950 M 74 From: Herber horvath MD PCP: Dr. Dawson Laguna MD Status: DEP AMB Study: Knee 3 Views Date of Exam: 10/28/24 Exam# [id number] Ordering Dr: Jim Whelan DO PROCEDURE: KNEE 3 VIEWS REASON FOR EXAM: Prior right knee replacement. TECHNIQUE: 3 view(s) of the right knee knee COMPARISON: Comparison is made with prior study dated April 08, 2023. FINDINGS: Status post right total knee replacement. There is good alignment. No fracture. No suspicious bone lesion. Normal alignment. No effusion. Soft tissues are unremarkable. RAD/Knee 3 Views IMPRESSION: Stable examination. Reading Location: [facility] CC: Dr. Jim Wehlan DO; Dr. Dawson Laguna MD Licensing Coordinator: Signed Normal [place] Orthopedic Visit Reporton Orthopedic Visit Report [facility] [address] [place] [address] [address] [place] [address] OFFICE VISIT Date of Service: 10/28/24 MR#: [id number] Acct: [id number] Name: HANNAH LEBRON Rep #: [id number] : 1950 Provider: Dr. Jim chaudhari DO Age/Sex: 74/M Location: [facility] Status: Signed Intake Vital Signs 02/13/22 12:07 10/28/24 11:10 Height 5 ft 7 in 5 ft 7 in Weight: 242 lb 8 oz BMI 38.0 Intake Visit Reasons: RIGHT KNEE Chief Complaint: right knee Accompanied by: Is patient in pain?: Yes Pain scale (1-10): 6 Allergies No Known Allergies Allergy (Verified 10/28/24 11:10) Medications ???Medication ???Instructions ???Recorded ???Confirmed ???Type pantoprazole 40 mg tablet,delayed 40 mg PO DAILY GERD 12/21/1501/17 History release pravastatin 40 mg tablet 40 mg PO QHS CHOLESTEROL 12/21/15 10/28/24 History acetaminophen 500 mg tablet 1,000 mg (2 x 500 mg) PO Q6H #100 01/03/22 10/28/24 Rx tabs clopidogrel 75 mg tablet 75 mg PO 11/28/22 10/28/24 History tramadol 50 mg tablet 50 mg PO PRN 11/28/22 10/28/24 His tory Have you fallen in the past year?: No PFSH Medical History Alcohol use Arthritis Former cigar smoker Gastric reflux High cholesterol History of pain when walking HTN (hypertension) Hx of steroid therapy Kidney stones Osteoarthritis of right knee Stroke Wears dentures Surgical History History of hernia repair Hx of left knee surgery Hx of removal of testicle Hx of total knee arthroplasty Social History Smoking Status: Former smoker HPI RIGHT KNEE Details: This documentation accurately reflects the service provided and the decisions made by me, Dr. Jim Whelan, 10/28/24 0754. Part of today???s visit was documented by Ana M Helm ATC, acting as scribe. HANNAH LEBRON is a 74 year old M here today for right knee pain. Patient did have a right TKA on 01/02/2022. Patient states the knee has been bothering him since his surger. He states the knee is stiff and when he walks the knee feels like it will give out on him. He denies any injury to the knee . Patient states he had a blood clot after surgery and he had a 6 month follow-up and was told it was smaller but it is still there. He describes the pain over the anterior aspect of the knee. He does ride on a stationary exercise machine and rides 1-2 miles a day and it seems like the knee will get aggravated. He states there is a click in the knee when he is riding the stationary bike as well as when he is walking. He complains of occasional tingling in the leg. Patient takes tramadol for the pain. He has no fevers chills redness or joint effusion. Ortho Exam General General: Yes no acute distress and Yes well groomed Neurologic: Yes alert and Yes oriented x3 Psychologic: Yes reasonable and appropriate Right Knee Skin/Wound: Yes CDI, No erythema, No ecchymosis and No swelling Knee ROM: Yes ROM-Extension -20 to 0 and Yes ROM-Flexion 0-140 (120) Stability: NML: Anterior Drawer, NML: Posterior Drawer, NML: Valgus 0, NML: Valgus 30, NML: Varus 0 and NML: Varus 30 Patella Translation: 1 KNEE: Tender over inferior pole of the patella There is no bursitis there is no joint effusion There is no erythema there is no increased warmth no masses no collateral instability He has excellent range of motion 0-1 20 although he says it feels stiff Left Knee Patella Translation: 1 Supplemental Info 10/28/2024 x-ray right knee: Status post cemented total knee arthroplasty with good interfaces and position there is some mild ossification of the quadriceps insertion 11/28/2022 x-ray right knee: Status post total knee arthroplasty with good interfaces and position without concern 02/13/2022 right total knee arthroplasty: Dr. Whelan Coding Level of Care Code Off vis,est,level 3 Diagnoses History of total right knee replacement Z96.651 Assessment and Plan Assessment and Plan (1) History of total right knee replacement: Status: Acute Orders: Orders Knee 3 Views Today Z96.651 - Presence of right artificial knee joint Plan Obtained and reviewed imaging with the patient and explained that his hardware looks great there is no sign of loosening or infection on x-ray or clinical examination there is no joint effusion there is no collateral ligament instability he has excellent range of motion. Explained that the clicking that he is experiencing is the mechanical feel from the hardware that is made of metal and plastic that is in the knee and is to be expected. Recommended patient try Voltaren gel to apply to the area. He could try more phys (more content not included)... Normal [place] BUN/creatinine ratioOrdered By: Dawson Laguna on 10-21-2024 Urea nitrogen/Creatinine [Mass ratio] 11.1 mg/mg 10-20 [place] Bilirubin, totalOrdered By: Dawson Laguna on 10-21-2024 Bilirubin [Mass/Vol] 1.19 mg/dL 0.00-1.30 [facility] Calculated very low density lipoprotein (VLDL) cholesterol measurementOrdered By: Dawson Laguna on 10-21-2024 Calculated very low density lipoprotein (VLDL) cholesterol measurement 67 mg/dL High 5-40 [facility] VLDL Cholesterol 67 mg/dL High 5-40 [facility] Carbon dioxide measurementOr dered By: Dawson Laguna on 10-21-2024 CO2 [Moles/Vol] 23.8 mmol/L 22.0-29.0 [place] Chloride measurementOrdered By: Dawson Laguna on 10-21-2024 Chloride [Moles/Vol] 105 mmol/L 96-108 [facility] Comprehensive Metabolic Prof ilon 10-21-2024 Albumin [Mass/Vol] 4.0 g/dL Normal 3.4-4.8 [facility] Comment on above: Performed By: #### L 500.4050, L501.9910, L500.4100 #### [facility] [address] [place], [address] Albumin/Globulin [Mass ratio] 1.2 {ratio} Normal 0.9-2.4 [place] Comment on above: Performed By: #### L 500.4050, L501.9910, L500.4100 #### [facility] [address] [place], [address] ALK PHOS 58 U/L Normal 40-129 [place] Comment on above: Performed By: #### L 500.4050, L501.9910, L500.4100 #### [facility] [address] [place], [address] ALT [Catalytic activity/Vol] 14 U/L Normal <=46 [facility] Comment on above: Performed By: #### L 500.4050, L501.9910, L500.4100 #### [facility] [address] [place], [address] Anion gap [Moles/Vol] 10 mmol/L Normal 5-15 [facility] Comment on above: Performed By: #### L 500.4050, L501.9910, L500.4100 #### [facility] [address] [place], [address] AST [Catalytic activity/Vol] 21 U/L Normal <=37 [place] Comment on above: Performed By: #### L 500.4050, L501.9910, L500.4100 #### [facility] [address] [place], [address] Bilirubin [Mass/Vol] 1.19 mg/dL Normal 0.00-1.30 [facility] Comment on above: Performed By: #### L 500.4050, L501.9910, L500.4100 #### [facility] [address] [place], [address] BUN/CRE 11.1 RATIO Normal 10-20 [place] Comment on above: Performed By: #### L 500.4050, L501.9910, L500.4100 #### [facility] [address] [place], [address] Calcium [Mass/Vol] 9.2 mg/dL Normal 7.6-11.0 [facility] Comment on above: Performed By: #### L 500.4050, L501.9910, L500.4100 #### [facility] [address] [place], [address] Chloride [Moles/Vol] 105 mmol/L Normal 96-108 [facility] Comment on above: Performed By: #### L 500.4050, L501.9910, L500.4100 #### [facility] [address] [place], [address] CO2 [Moles/Vol] 23.8 mmol/L Normal 22.0-29.0 [place] Comment on above: Performed By: #### L 500.4050, L501.9910, L500.4100 #### [facility] [address] [place], [address] Creatinine [Mass/Vol] 0.8 mg/dL Normal 0.8-1.3 [facility] Comment on above: Performed By: #### L 500.4050, L501.9910, L500.4100 #### [facility] [address] [place], [address] GFR/1.73 sq M.predicted among non-blacks MDRD (S/P/Bld) [Vol rate/Area] 92 mL/min/{1.73_m2} Normal >60 [place] Comment on above: Result Comment: mL/m in/1.73m2 CKD-EPI Creatinine Equation (2020) Performed By: #### L 500.4050, L501.9910, L500.4100 #### [facility] [address] [place], [address] Globulin (S) [Mass/Vol] 3.3 g/dL Normal 2.2-4.2 [facility] Comment on above: Performed By: #### L 500.4050, L501.9910, L500.4100 #### [facility] [address] [place], [address] Glucose [Mass/Vol] 113 mg/dL High 70-99 [facility] Comment on above: Performed By: #### L 500.4050, L501.9910, L500.4100 #### [facility] [address] [place], [address] Potassium [Moles/Vol] 4.3 mmol/L Normal 3.3-5.1 [facility] Comment on above: Performed By: #### L 500.4050, L501.9910, L500.4100 #### [facility] [address] [place], [address] Sodium [Moles/Vol] 139 mmol/L Normal 133-145 [facility] Comment on above: Performed By: #### L 500.4050, L501.9910, L500.4100 #### [facility] [address] [place], [address] T PROT 7.3 g/dL Normal 5.9-8.4 [place] Comment on above: Performed By: #### L 500.4050, L501.9910, L500.4100 #### [facility] [address] [place], [address] Urea nitrogen [Mass/Vol] 9 mg/dL Normal 4-19 [facility] Comment on above: Performed By: #### L 500.4050, L501.9910, L500.4100 #### [facility] [address] [place], [address] GFR/1.73 sq M.predicted radha g non-blacks MDRD (S/P/Bld) [Vol rate/Area]Ordered By: Dawson Laguna on 10-21-2024 Estimated GFR (MDRD) Non-Af Amer 92 >60 [place] Comment on above: mL/min/1.73m2 CKD-EP I Creatinine Equation (2020) Glomerular filtration rate ( GFR) estimation/1.73 sq m using serum, plasma, or whole bOrdered By: Dawson Laguna on 10-21-2024 GFR/1.73 sq M.predicted among non-blacks MDRD (S/P/Bld) [Vol rate/Area] 92 mL/min/{1.73_m2} >60 [place] Comment on above: mL/min/1.73m2 CKD-EP I Creatinine Equation (2020) LDL calc ser/plasOrdered By: Dawson Laguna on 10-21-2024 Cholesterol in LDL [Mass/Vol] 82 mg/dL [facility] Comment on above: Fkrioibjts=295-445 m g/dL & Higher Aole=031 mg/dL or greater LDL Cholesterol, Calculated 82 mg/dL [facility] Comment on above: Cwsjeofngd=972-175 m g/dL & Higher Hutv=298 mg/dL or greater Laboratory - Chemistry and C hemistry - challengeOrdered By: Dawson Laguna on 10-21-2024 AST [Catalytic activity/Vol] 21 U/L <38 [place] Lipid Profileon 10-21-2024 CHOL:HDL 6.98 Normal [facility] Comment on above: Performed By: #### L 500.4050, L501.9910, L500.4100 #### [facility] [address] [place], [address] Cholesterol [Mass/Vol] 173 mg/dL Normal <=200 [facility] Comment on above: Result Comment: Chol esterol level, Desirable <200 mg/dL Borderline high cholesterol 200-239 mg/dL High cholesterol >=240 mg/dL Recommendations of the NCEP Adult Treatment Panel for the following risk-cutoff thresholds for the [place] population. Performed By: #### L 500.4050, L501.9910, L500.4100 #### [facility] [address] [place], [address] Cholesterol in HDL [Mass/Vol] 25 mg/dL Low [place] Comment on above: Result Comment: Robyn onal Cholesterol Education Program (NCEP) guidelines: <40 mg/dL: Low HDL-cholesterol (major risk factor for CHD) >= 60 mg/dL: High HDL-cholesterol (negative risk factor for CHD) HDL-cholesterol is affected by a number of factors, e.g. smoking, exercise, hormones, sex and age. Performed By: #### L 500.4050, L501.9910, L500.4100 #### [facility] [address] [place], [address] Cholesterol in LDL [Mass/Vol] 82 mg/dL Normal [facility] Comment on above: Result Comment: Bord qjqswm=242-472 mg/dL Higher Ybgd=148 mg/dL or greater Performed By: #### L 500.4050, L501.9910, L500.4100 #### [facility] [address] [place], [address] Cholesterol in VLDL [Mass/Vol] 67 mg/dL High 5-40 [facility] Comment on above: Performed By: #### L 500.4050, L501.9910, L500.4100 #### [facility] [address] [place], [address] Triglyceride [Mass/Vol] 333 mg/dL High [facility] Comment on above: Result Comment: The drugs N-Acetylcysteine and Metamizole may falsely depress this assay. Normal range: <150 mg/dL Borderline High: 150-199 mg/dL High: 200-499 mg/dL Very High: >500 mg/dL Performed By: #### L 500.4050, L501.9910, L500.4100 #### [facility] [address] [place], [address] PSA, total screeningOrdered By: Dawson Laguna on 10-21-2024 Prostate Specific Antigen Screen 6.42 ng/mL High 0.02-4.00 [place] Comment on above: This test was perfor med using the [employer] tPSA method. Measured values of a patient sample can vary depending on the testing procedure used. PSA values determined on patient samples by different testing procedures cannot be used interchangeably. If there is a change in PSA assays while monitoring therapy, sequential testing should be performed to confirm baseline values. PSA,Total - Annual Screenon 10-21-2024 PSA,TOT SCREEN 6.42 ng/mL High 0.02-4.00 [place] Comment on above: Result Comment: This test was performed using the [employer] tPSA method. Measured values of a patient??sample can vary depending on the testing procedure used. PSA values determined on patient samples by different testing procedures cannot be used interchangeably. If there is a change in PSA assays while monitoring therapy, sequential testing should be performed to confirm baseline values. Performed By: #### L 500.4050, L501.9910, L500.4100 #### [facility] [address] [place], [place], [address] Screening total cholesterol/ high density lipoprotein (HDL) cholesterol ratioOrdered By: Dawson Laguna on 10-21-2024 Cholesterol.total/Zo sterol in HDL [Mass ratio] 6.98 {ratio} [place] Serum creatinine measurement (mass/volume)Ordered By: Dawson Laguna on 10-21-2024 Creatinine [Mass/Vol] 0.8 mg/dL 0.70-1.20 [facility] Serum globulin measurementOr dered By: Dawson Laguna on 10-21-2024 Globulin (S) [Mass/Vol] 3.3 g/dL 2.2-4.2 [facility] Serum glucose measurement (m ass/volume)Ordered By: Dawson Laguna on 10-21-2024 Glucose [Mass/Vol] 113 mg/dL High 70-99 [facility] Serum or plasma alanine gaming otransferase (ALT) measurementOrdered By: Dawson Laguna on 10-21-2024 ALT [Catalytic activity/Vol] 14 U/L <47 [place] Serum or plasma albumin chiquis urement (mass/volume)Ordered By: Dawson Laguna on 10-21-2024 Albumin [Mass/Vol] 4.0 g/dL 3.4-4.8 [facility] Serum or plasma albumin/glob ulin mass ratioOrdered By: Dawson Laguna on 10-21-2024 Albumin/Globulin [Mass ratio] 1.2 {ratio} 0.9-2.4 [place] Serum or plasma alkaline kuldip sphatase measurementOrdered By: Dawson Laguna on 10-21-2024 ALP [Catalytic activity/Vol] 58 U/L 40-129 [place] Serum or plasma anion gap de termination (moles/volume)Ordered By: Dawson Laguna on 10-21-2024 Anion gap [Moles/Vol] 10 mmol/L 5-15 [facility] Serum or plasma calcium chiquis urement (mass/volume)Ordered By: Dawson Laguna on 10-21-2024 Calcium [Mass/Vol] 9.2 mg/dL 7.6-11.0 [facility] Serum or plasma cholesterol in HDL measurement (mass/volume)Ordered By: Dawson Laguna on 10-21-2024 Cholesterol in HDL [Mass/Vol] 25 mg/dL Low >40 [place] Comment on above: National Cholesterol Education Program (NCEP) guidelines:<40 mg/dL: Low HDL-cholesterol (major risk factor for CHD)>= 60 mg/dL: High HDL-cholesterol (negative risk factor for CHD)HDL-cholesterol is affected by a number of factors, e.g. smoking, exercise, hormones, sex and age. Serum or plasma cholesterol measurement (mass/volume)Ordered By: Dawson Laguna on 10-21-2024 Cholesterol [Mass/Vol] 173 mg/dL <201 [facility] Comment on above: Cholesterol level, D esirable <200 mg/dLBorderline high cholesterol 200-239 mg/dLHigh cholesterol >=240 mg/dLRecommendations of the NCEP Adult Treatment Panel for the following risk-cutoff thresholds for the [place] population. Serum or plasma potassium me asurementOrdered By: Dawson Laguna on 10-21-2024 Potassium [Moles/Vol] 4.3 mmol/L 3.3-5.1 [facility] Serum or plasma sodium measu rement (moles/volume)Ordered By: Dawson Laguna on 10-21-2024 Sodium [Moles/Vol] 139 mmol/L 133-145 [facility] Serum or plasma urea nitroge n measurement (mass/volume)Ordered By: Dawson Laguna on 10-21-2024 Urea nitrogen [Mass/Vol] 9 mg/dL 4-19 [place] Total proteinOrdered By: Barb Laguna on 10-21-2024 Protein [Mass/Vol] 7.3 g/dL 5.9-8.4 [facility] Triglycerides measurementOrd ered By: Dawson Laguna on 10-21-2024 Triglyceride [Mass/Vol] 333 mg/dL High <199 [facility] [facility] Comment on above: The drugs N-Acetylcy steine and Metamizole may falsely depress this assay. Normal range: <150 mg/dLBorderline High: 150-199 mg/dLHigh: 200-499 mg/dLVery High: >500 mg/dL Basophil percentageOrdered B y: Dawson Laguna on 11-07-2023 Chloride [Moles/Vol] 110 mmol/L 98-107 [facility] Cholesterol [Mass/Vol] 173 mg/dL <200 [facility] Comment on above: <200 mg/dL Desirable 200-240 mg/dL Borderline >240 mg/dL High Risk Glucose [Mass/Vol] 121 mg/dL 74-106 [facility] Comment on above: Fasting Glucose resu lt from 100 to 125 mg/dL suggests IMPAIRED HOMEOSTASIS per A.D.A. criteria. Potassium [Moles/Vol] 4.0 mmol/L 3.5-5.1 [facility] Sodium [Moles/Vol] 140 mmol/L 136-145 [facility] Triglyceride [Mass/Vol] 336 mg/dL <199 [facility] Comment on above: The drugs N-Acetylcy steine and Metamizole may falsely depress this assay.Serum Triglycerides Reference Interval Normal <150 mg/dL Borderline high 150 - 199 mg/dL High 200 - 499 mg/dL Very High > or = 500 mg/dL Laboratory - Chemistry and C hemistry - challengeOrdered By: Dawson Laguna on 11-07-2023 Cholesterol in HDL [Mass/Vol] 28 mg/dL >40 [place] Comment on above: The drugs N-Acetylcy steine and Metamizole may falsely depress this assay. Reference Range HDL <40 mg/dL Low HDL Cholesterol HDL >or= 60 mg/dL High HDL Cholesterol Cholesterol in LDL [Mass/Vol] 78 mg/dL 0-130 [place] CO2 [Moles/Vol] 26.0 mmol/L 21.0-32.0 [place] Urea nitrogen/Creatinine [Mass ratio] 16.4 mg/mg 10-20 [place] No Panel InformationOrdered By: Dawson Laguna on 11-07-2023 Estimated GFR (MDRD) Amer 136 mL/min >60 [place] Comment on above: GFR Calc Estimated GFR (MDRD) Non-Af Amer 112 mL/min >60 [place] Comment on above: Non- GFR Calc Prostate Specific Antigen Screen 6.71 ng/mL 0.00-4.00 [place] Comment on above: This test was perfor med using the TPSA assay method for [employer] chemistry system. Values obtained with differentassay methods cannot be used interchangably.When changing PSA assays in the course of monitoring apatient, additional sequential testing should be carriedout to confirm baseline values. VLDL Cholesterol 67 mg/dL 5-40 [place] Serum or plasma calcium chiquis urement (mass/volume)Ordered By: Dawson Laguna on 11-07-2023 Calcium [Mass/Vol] 9.0 mg/dL 8.5-10.1 [facility] Serum or plasma creatinine m easurement (mass/volume)Ordered By: Dawson Laguna on 11-07-2023 Creatinine [Mass/Vol] 0.73 mg/dL 0.70-1.30 [facility] Comment on above: The validity of the calculated GFR & GFRAA in patients over 70 years has not been determined. Clinical correlation is essential. Serum or plasma urea nitroge n measurement (mass/volume)Ordered By: Dawson Laguna on 11-07-2023 Urea nitrogen [Mass/Vol] 12 mg/dL 7-18 [place] Thin prep Papanicolaou smear with manual screeningOrdered By: Dawson Laguna on 11-07-2023 Thin prep Papanicolaou smear with manual screening 4 5-15 [place] Absolute lymphocyte counton 04-26-2022 Lymphocytes Auto (Unsp spec) [#/Vol] 2.20 10*3/uL 0.83-4.51 [place] Work Phone: Basophil percentageon 2021 Basophils/100 WBC (Bld) 0.5 % 0-1 [facility] Work Phone: Eosinophils/100 WBC (Bld) 2.4 % 0-5 [place] Work Phone: Neutrophils (Bld) [#/Vol] 2.9 10*3/uL 2.0-7.7 [place] Work Phone: Neutrophils/100 WBC (Bld) 50.1 % 47-70 [place] Work Phone: WBC (Bld) [#/Vol] 5.8 10*3/uL 4.4-11.0 [facility] Work Phone: Blood erythrocytes count (nu mber/volume)on 04-26-2022 RBC (Bld) [#/Vol] 4.42 10*6/uL 4.6-6.2 [facility] Work Phone: Blood hemoglobin measurement (mass/volume)on 04-26-2022 Hemoglobin (Bld) [Mass/Vol] 13.3 g/dL 13.0-16.5 [place] Work Phone: Blood lymphocytes/100 leukoc yteson 04-26-2022 Lymphocytes/100 WBC (Bld) 38.1 % 19-41 [place] Work Phone: Blood monocytes/100 leukocyt eson 04-26-2022 Monocytes/100 WBC (Bld) 8.7 % 0-10 [facility] Work Phone: Blood platelet mean volumeon 04-26-2022 Platelet mean volume (Bld) [Entitic vol] 11.1 fL 6.2-12.0 [place] Work Phone: Determination of erythrocyte mean corpuscular volume (MCV)on 04-26-2022 MCV (RBC) [Entitic vol] 86.9 fL 80-94 [facility] Work Phone: Hematocrit Auto (Bld) [Volum e fraction]on 04-26-2022 Hematocrit (Bld) [Volume fraction] 38.4 % 40-54 [place] Work Phone: Laboratory - Hematology and Cell countson 04-26-2022 Erythrocyte distribution width (RBC) [Entitic vol] 40.7 fL 35.1-43.9 [place] Work Phone: Erythrocyte distribution width (RBC) [Ratio] 12.9 % 11.6-14.6 [place] Work Phone: [phone] Immature granulocytes/100 WBC (Bld) 0.200 % 0.0-0.9 [place] Work Phone: Comment on above: IG% - Immature Granu locytes (promyelocytes, myelocytes and metamyelocytes) > 1% indicates that a LEFT SHIFT is Present. MCH (RBC) [Entitic mass] 30.1 pg 27.0-32.0 [place] Work Phone: Nucleated RBC/100 WBC (Bld) [Ratio] 0 % 0-5 [place] Work Phone: MCHC Auto (RBC) [Mass/Vol]on 04-26-2022 MCHC (RBC) [Mass/Vol] 34.6 g/dL 32-36 [facility] Work Phone: Platelets bldon 04-26-2022 Platelets (Bld) [#/Vol] 176 10*3/uL 150-450 [place] Work Phone: Basophil percentageon 2021 Chloride [Moles/Vol] 106 mmol/L 98-107 [facility] Work Phone: Glucose [Mass/Vol] 170 mg/dL 74-106 [facility] Work Phone: [phone] Comment on above: Fasting Glucose resu lt greater than or equal to 126 mg/dL suggests DIABETES MELLITUS per A.D.A. criteria. Potassium [Moles/Vol] 3.8 mmol/L 3.5-5.1 [facility] Work Phone: Sodium [Moles/Vol] 139 mmol/L 136-145 [facility] Work Phone: WBC (Bld) [#/Vol] 9.3 10*3/uL 4.4-11.0 [facility] Work Phone: Blood erythrocytes count (nu mber/volume)on 01-03-2022 RBC (Bld) [#/Vol] 3.72 10*6/uL 4.6-6.2 [facility] Work Phone: Blood hemoglobin measurement (mass/volume)on 01-03-2022 Hemoglobin (Bld) [Mass/Vol] 11.3 g/dL 13.0-16.5 [place] Work Phone: Blood platelet mean volumeon 01-03-2022 Platelet mean volume (Bld) [Entitic vol] 11.3 fL 6.2-12.0 [place] Work Phone: Determination of erythrocyte mean corpuscular volume (MCV)on 01-03-2022 MCV (RBC) [Entitic vol] 89.5 fL 80-94 [facility] Work Phone: Hematocrit Auto (Bld) [Volum e fraction]on 01-03-2022 Hematocrit (Bld) [Volume fraction] 33.3 % 40-54 [place] Work Phone: Laboratory - Chemistry and C hemistry - challengeon 01-03-2022 CO2 [Moles/Vol] 27.0 mmol/L 21.0-32.0 [place] Work Phone: Urea nitrogen/Creatinine [Mass ratio] 18.0 mg/mg 10-20 [place] Work Phone: Laboratory - Hematology and Cell countson 01-03-2022 Erythrocyte distribution width (RBC) [Entitic vol] 39.2 fL 35.1-43.9 [place] Work Phone: Erythrocyte distribution width (RBC) [Ratio] 12.0 % 11.6-14.6 [place] Work Phone: MCH (RBC) [Entitic mass] 30.4 pg 27.0-32.0 [place] Work Phone: MCHC Auto (RBC) [Mass/Vol]on 01-03-2022 MCHC (RBC) [Mass/Vol] 33.9 g/dL 32-36 [facility] Work Phone: No Panel Informationon 01-03 Estimated Creatinine Clearance Calc 64.26 ml/min [place] Work Phone: Estimated GFR (MDRD) Amer 138 mL/min >60 [place] Work Phone: Comment on above: GFR Calc Estimated GFR (MDRD) Non-Af Amer 114 mL/min >60 [place] Work Phone: Comment on above: Non- GFR Calc Platelets bldon 01-03-2022 Platelets (Bld) [#/Vol] 130 10*3/uL 150-450 [place] Work Phone: Serum or plasma calcium chiquis urement (mass/volume)on 01-03-2022 Calcium [Mass/Vol] 8.2 mg/dL 8.5-10.1 [facility] Work Phone: Serum or plasma creatinine m easurement (mass/volume)on 01-03-2022 Creatinine [Mass/Vol] 0.72 mg/dL 0.70-1.30 [facility] Work Phone: Comment on above: The validity of the calculated GFR & GFRAA in patients over 70 years has not been determined. Clinical correlation is essential. Serum or plasma urea nitroge n measurement (mass/volume)on 01-03-2022 Urea nitrogen [Mass/Vol] 13 mg/dL 7-18 [place] Work Phone: Thin prep Papanicolaou smear with manual screeningon 01-03-2022 Thin prep Papanicolaou smear with manual screening 6 5-15 [place] Work Phone: Glucose Glucometer (BldC) [M ass/Vol]on 01-02-2022 Glucose [Mass/Vol] 121 mg/dL 74-106 [facility] Work Phone: Comment on above: MANAGEMENT OF PATIEN T CARE PER NURSING PROTOCOL Absolute lymphocyte counton 12-21-2021 Lymphocytes Auto (Unsp spec) [#/Vol] 1.68 10*3/uL 0.83-4.51 [place] Work Phone: Basophil percentageon 2021 Basophils/100 WBC (Bld) 0.6 % 0-1 [facility] Work Phone: [phone] Eosinophils/100 WBC (Bld) 2.2 % 0-5 [place] Work Phone: [phone] Neutrophils (Bld) [#/Vol] 2.5 10*3/uL 2.0-7.7 [place] Work Phone: Neutrophils/100 WBC (Bld) 51.5 % 47-70 [place] Work Phone: [phone] Blood lymphocytes/100 leukoc yteson 12-21-2021 Lymphocytes/100 WBC (Bld) 34.3 % 19-41 [place] Work Phone: Blood monocytes/100 leukocyt eson 12-21-2021 Monocytes/100 WBC (Bld) 11.2 % 0-10 [facility] Work Phone: INR in Blood by Coagulation assayon 12-21-2021 INR Coag (Bld) [Relative time] 1.1 {INR} [place] Work Phone: Laboratory - Chemistry and C hemistry - challengeon 12-21-2021 Magnesium [Mass/Vol] 1.9 mg/dL 1.6-2.6 [facility] Work Phone: [phone] Laboratory - Coagulationon 0 12-21-2021 aPTT Coag (Bld) [Time] 28.5 s 24.1-36.2 [facility] Work Phone: [phone] PT Coag (PPP) [Time] 13.4 s 11.7-14.9 [facility] Work Phone: Laboratory - Hematology and Cell countson 12-21-2021 Immature granulocytes/100 WBC (Bld) 0.200 % 0.0-0.9 [place] Work Phone: Comment on above: IG% - Immature Granu locytes (promyelocytes, myelocytes and metamyelocytes) > 1% indicates that a LEFT SHIFT is Present. Nucleated RBC/100 WBC (Bld) [Ratio] 0 % 0-5 [place] Work Phone: No Panel Informationon 12-21 Fructosamine 229 umol/L 0-285 [place] Work Phone: Comment on above: Published reference interval for apparently healthysubjects between age 20 and 60 is 205 - 285 umol/L and in apoorly controlled diabetic population is 228 - 563 umol/Lwith a mean of 396 umol/L.Performed at: [address] Director: Brodie Kirby PhD, Phone: [phone] Nasal Screen MRSA/MSSA [facility] Work Phone: Laboratory - Microbiology an d Antimicrobial susceptibilityon 12-03-2021 S. pyogenes Ag IA Ql (Unsp spec) Negative [place] Work Phone: CNOVon 08-23-2019 CNOV Office Visit ([facility]) HANNAH LEBRON ([id number]) 1950 M Date Time Provider Department 08/23/19 11:15 AM BRIANNA FORD) [facility] During your visit today, we recorded the following information about you: Temperature Pulse Respiration Blood pressure 98.7 degrees 68/minute 20/minute 128/86 Weight 117.3 kg Brianna Ford PA-C 08/23/2019 1:00 PM Signed Subjective HPI HPI Hannah Lebron is a 68 year old male who presents today for CC of cough, nasal drainage, ST, headache since this round- but states he has never really resolved since initially getting sick about 4-5 weeks ago. He had seen his PCP (Dr. Laguna) around end of Jun and he was txed with multiple rounds of medications- was given cheratussin and tessalon perles- most recently txed w/ a [place]. Doesn't feel as thoug he ever completely resolved. Cough is pretty dry. Slightly SOB. No underlying lung conditions. Blowing a lot of drainage out of his nose- whitish with green tinged out of nose. BP 128/86 Pulse 68 Temp 37.1 ?C (98.7 ?F) (Left Tympanic) Resp 20 Wt 117.3 kg (258 lb 9.6 oz) SpO2 97% ALLERGIES No Known Allergies There is no problem list on file for this patient. No family history on file. Social History Tobacco Use - Smoking status: Former Smoker Types: Cigars - Smokeless tobacco: Never Used Substance Use Topics - Alcohol use: Not on file - Drug use: Not on file Review of Systems Constitutional: Negative for chills, fever (Subjective- felt sweaty ) and malaise/fatigue. HENT: Positive for congestion, ear pain and sore throat. Negative for sinus pain. Respiratory: Positive for cough. Negative for sputum production, shortness of breath and wheezing. Cardiovascular: Negative for chest pain. Neurological: Negative for headaches. Objective Physical Exam Constitutional: He is oriented to person, place, and time and well-developed, well-nourished, and in no distress. HENT: Head: Normocephalic and atraumatic. Right Ear: Tympanic membrane, external ear and ear canal normal. Tympanic membrane is not injected, not perforated, not erythematous, not retracted and not bulging. No middle ear effusion. Left Ear: Tympanic membrane, external ear and ear canal normal. Tympanic membrane is not injected, not perforated, not erythematous, not retracted and not bulging. No middle ear effusion. Nose: Mucosal edema and rhinorrhea (Purulent drainage noted) present. Right sinus exhibits no maxillary sinus tenderness and no frontal sinus tenderness. Left sinus exhibits no maxillary sinus tenderness and no frontal sinus tenderness. Mouth/Throat: Uvula is midline, oropharynx is clear and moist and mucous membranes are normal. No oropharyngeal exudate, posterior oropharyngeal edema, posterior oropharyngeal erythema or tonsillar abscesses. Neck: Normal range of motion. Cardiovascular: Normal rate, regular rhythm and normal heart sounds. Pulmonary/Chest: Effort normal. No accessory muscle usage. No respiratory distress. He has decreased breath sounds (Mildly diminished breath sounds bilaterally- more open and CTA s/p aerosol tx). He has wheezes (Mildly wheezing noted in apices bilaterally ). He has no rhonchi. He has no rales. Lymphadenopathy: Head (right side): No submental, no submandibular, no tonsillar, no preauricular, no posterior auricular and no occipital adenopathy present. Head (left side): No submental, no submandibular, no tonsillar, no preauricular, no posterior auricular and no occipital adenopathy present. He has no cervical adenopathy. Right cervical: No superficial cervical and no posterior cervical adenopathy present. Left cervical: No superficial cervical and no posterior cervical adenopathy present. Neurological: He is alert and oriented to person, place, and time. Skin: Skin is warm and dry. Psychiatric: Affect normal. Nursing note and vitals reviewed. ASSESSMENT/PLAN: 1. Sinobronchitis - ICD9: 473.9, 490, ICD10: J32.9, J40 (primary diagnosis) Albuterol tx given with subjective relief in symptoms (pulse ox remained unchanged at 94%) - Will begin treatment with Augmentin 875 mg PO BID for 10 days; Rx for prednisone given SOB/chest congestion and persistent cough. Discussed medication indications, proper use, and potential adverse effects. All questions and concerns addressed to patient satisfaction. - The patient should also be given warm salt water gargles, throat lozenges and/or OTC throat spray as needed for the first 5-7 days of treatment. - Supportive care with plenty of fluids, rest, and analgesia prn. - Follow up in one week if symptoms persist or worsen. - AMOXICILLIN 875 MG-POTASSIUM CLAVULANATE 125 MG TABLET - ALBUTEROL SULFATE 2.5 MG/3 ML (0.083 %) SOLUTION FOR NEBULIZATION - PREDNISONE 20 MG TABLET - ALBUTEROL SULFATE 90 MCG/ACTUATION BREATH ACTIVATED POWDER INHALER 2. Wheezing - ICD9: 786.07, ICD10: R06.2 See above - PREDNISONE 20 MG TABLET - ALBUTEROL SULFATE 90 MCG/ACTUATION BREATH ACTIVATED POWDER INHALER Pt advised to see PCP if symptoms persist or progress. Reviewed red flags with patient and when to seek care sooner. The patient indicates understanding of these issues and agrees with the plan. FAYE Raza MA 08/23/2019 12:49 PM Signed Albuterol solution aerosol treatment given per doctor's order at 12:29. Prior to treatment, O2 sat is 94% on room air. Vital signs: HR 68, RR 20. Treatment completed at 12:48. O2 sat is 94 % on room air. Vital signs: HR 66, RR 20. Tolerated well. Dayana Ford PA-C 08/23/2019 12:52 PM Signed [facility] [address] [place] [address] Emergency Department Diagnosis: Assessment ACUTE BRONCHITIS: You have acute bronchitis. This means the airway passages in your lungs are inflamed. Bronchitis may be caused by viruses or bacteria. Inhaling cigarette smoke will always make it worse. Exposure to irritating chemicals or second hand smoke as well as allergies can contribute to bronchitis. Repeat episodes of bronchitis may cause lifelong lung problems. Acute bronchitis is usually treated with rest, fluids, cough medicine, and possibly antibiotics or inhaled medicine to open up the small airways. It is very important that you avoid smoke and drink increased amounts of fluids. A cool air vaporizer can help thin bronchial secretions. This makes it easier to cough and clear your chest. If you are a cigarette smoker, consider using nicotine gum or skin patches to help you withdraw. Recovery from bronchitis is often slow, but you should start feeling better after 2-3 days of treatment. Please call your doctor or return here if you have any of the following symptoms: - Increased fever, chills, or chest pain. - Severe shortness of breath or bloody sputum. - Do not improve after 3 days of proper treatment. Referring Provider: SELF [[id number]] Allergies As of Date: 08/23/2019 (No Known Allergies) Date Reviewed: 08/23/2019 Reviewed by: Vilma Driver Ma - Fully Assessed Reason for Visit: URI [115] Cmt: x 3 weeks Primary Visit Diagnosis:Sinobronch itis [J32.9, J40] Other Visit Diagnosis:Wheezing [R06.2] Order(s):amoxicillin -clavulanic acid (AUGMENTIN) 875-125 mg per tabletTake 1 tablet by mouth twice daily for 10 days.Disp: 20 tabletRfl: 0 [] albuterol 2.5 mg /3 mL (0.083 %) 2.5 mg (PROVENTIL)Disp: Rfl: predniSONE (DELTASONE) 20 mg tabletTake 2 tablets by mouth once daily for 5 days.Disp: 10 tabletRfl: 0 albuterol sulfate 90 mcg/actuation aepbInhale 2 Puffs as instructed every 4 hours as needed.Disp: 1 InhalerRfl: 1 Prescriptions as of 08/23/2019 Sig: PANTOPRAZOLE 40 MG TABLET,DEL* Take 40 mg by mouth once lul* CLOPIDOGREL 75 MG TABLET Take 75 mg by mouth once lul* PRAVASTATIN 40 MG TABLET Take 40 mg by mouth once lul* VALSARTAN 80 MG TABLET Take 80 mg by mouth once lul* AMOXICILLIN 875 MG-POTASSIUM * Take 1 tablet by mouth twice * PREDNISONE 20 MG TABLET Take 2 tablets by mouth once * ALBUTEROL SULFATE 90 MCG/ACTU* Inhale 2 Puffs as instructed * Problem List As Of Date: 08/23/2019 (None) Other instructions from your clinician: [facility] [address] [place] [address] Emergency Department Diagnosis: Assessment ACUTE BRONCHITIS: You have acute bronchitis. This means the airway passages in your lungs are inflamed. Bronchitis may be caused by viruses or bacteria. Inhaling cigarette smoke will always make it worse. Exposure to irritating chemicals or second hand smoke as well as allergies can contribute to bronchitis. Repeat episodes of bronchitis may cause lifelong lung problems. Acute bronchitis is usually treated with rest, fluids, cough medicine, and possibly antibiotics or inhaled medicine to open up the small airways. It is very important that you avoid smoke and drink increased amounts of fluids. A cool air vaporizer can help thin bronchial secretions. This makes it easier to cough and clear your chest. If you are a cigarette smoker, consider using nicotine gum or skin patches to help you withdraw. Recovery from bronchitis is often slow, but you should start feeling better after 2-3 days of treatment. Please call your doctor or return here if you have any of the following symptoms: - Increased fever, chills, or chest pain. - Severe shortness of breath or bloody sputum. - Do not improve after 3 days of proper treatment. Visit Notes: >> Dayana Martins Aug 23, 2019 12:48 PM Status: Signed Albuterol solution aerosol treatment given per doctor's order at 12:29. Prior to treatment, O2 sat is 94% on room air. Vital signs: HR 68, RR 20. Treatment completed at 12:48. O2 sat is 94 % on room air. Vital signs: HR 66, RR 20. Tolerated well. Dayana Hannah MA Prescriptions ordered this encounter Disp Refills Start End AMOXICILLIN 875 MG-POTASSIUM CLAVULA* 20 t* 0 08/23/2019 09/02/2019 Route: ORAL Sig: Take 1 tablet by mouth twice daily for 10 days. ALBUTEROL SULFATE 2.5 MG/3 ML (0.083* 08/23/2019 08/23/2019 Route: INHALATION PREDNISONE 20 MG TABLET 10 t* 0 08/23/2019 08/28/2019 Route: ORAL Sig: Take 2 tablets by mouth once daily for 5 days. ALBUTEROL SULFATE 90 MCG/ACTUATION B* 1 In* 1 08/23/2019 Route: INHALATION Sig: Inhale 2 Puffs as instructed every 4 hours as needed. Encounter Status:Closed by BRIANNA FORD on 08/23/19 [place] PROGRESSon 08-23-2019 PROGRESS HNO ID: [id number] Author: Brianna Skinner) Cristofer Service: ? Author Type: Physician [place] Worker Type: Progress Notes Filed: 08/23/2019 1:00 PM Note Text: Subjective HPI HPI Hannah Lebron is a 68 year old male who presents today for CC of cough, nasal drainage, ST, headache since this round- but states he has never really resolved since initially getting sick about 4-5 weeks ago. He had seen his PCP (Dr. Laguna) around end of Jun and he was txed with multiple rounds of medications- was given cheratussin and tessalon perles- most recently txed w/ a [place]. Doesn't feel as thoug he ever completely resolved. Cough is pretty dry. Slightly SOB. No underlying lung conditions. Blowing a lot of drainage out of his nose- whitish with green tinged out of nose. BP 128/86 Pulse 68 Temp 37.1 ?C (98.7 ?F) (Left Tympanic) Resp 20 Wt 117.3 kg (258 lb 9.6 oz) SpO2 97% ALLERGIES No Known Allergies There is no problem list on file for this patient. No family history on file. Social History Tobacco Use - Smoking status: Former Smoker Types: Cigars - Smokeless tobacco: Never Used Substance Use Topics - Alcohol use: Not on file - Drug use: Not on file Review of Systems Constitutional: Negative for chills, fever (Subjective- felt sweaty ) and malaise/fatigue. HENT: Positive for congestion, ear pain and sore throat. Negative for sinus pain. Respiratory: Positive for cough. Negative for sputum production, shortness of breath and wheezing. Cardiovascular: Negative for chest pain. Neurological: Negative for headaches. Objective Physical Exam Constitutional: He is oriented to person, place, and time and well-developed, well-nourished, and in no distress. HENT: Head: Normocephalic and atraumatic. Right Ear: Tympanic membrane, external ear and ear canal normal. Tympanic membrane is not injected, not perforated, not erythematous, not retracted and not bulging. No middle ear effusion. Left Ear: Tympanic membrane, external ear and ear canal normal. Tympanic membrane is not injected, not perforated, not erythematous, not retracted and not bulging. No middle ear effusion. Nose: Mucosal edema and rhinorrhea (Purulent drainage noted) present. Right sinus exhibits no maxillary sinus tenderness and no frontal sinus tenderness. Left sinus exhibits no maxillary sinus tenderness and no frontal sinus tenderness. Mouth/Throat: Uvula is midline, oropharynx is clear and moist and mucous membranes are normal. No oropharyngeal exudate, posterior oropharyngeal edema, posterior oropharyngeal erythema or tonsillar abscesses. Neck: Normal range of motion. Cardiovascular: Normal rate, regular rhythm and normal heart sounds. Pulmonary/Chest: Effort normal. No accessory muscle usage. No respiratory distress. He has decreased breath sounds (Mildly diminished breath sounds bilaterally- more open and CTA s/p aerosol tx). He has wheezes (Mildly wheezing noted in apices bilaterally ). He has no rhonchi. He has no rales. Lymphadenopathy: Head (right side): No submental, no submandibular, no tonsillar, no preauricular, no posterior auricular and no occipital adenopathy present. Head (left side): No submental, no submandibular, no tonsillar, no preauricular, no posterior auricular and no occipital adenopathy present. He has no cervical adenopathy. Right cervical: No superficial cervical and no posterior cervical adenopathy present. Left cervical: No superficial cervical and no posterior cervical adenopathy present. Neurological: He is alert and oriented to person, place, and time. Skin: Skin is warm and dry. Psychiatric: Affect normal. Nursing note and vitals reviewed. ASSESSMENT/PLAN: 1. Sinobronchitis - ICD9: 473.9, 490, ICD10: J32.9, J40 (primary diagnosis) Albuterol tx given with subjective relief in symptoms (pulse ox remained unchanged at 94%) - Will begin treatment with Augmentin 875 mg PO BID for 10 days; Rx for prednisone given SOB/chest congestion and persistent cough. Discussed medication indications, proper use, and potential adverse effects. All questions and concerns addressed to patient satisfaction. - The patient should also be given warm salt water gargles, throat lozenges and/or OTC throat spray as needed for the first 5-7 days of treatment. - Supportive care with plenty of fluids, rest, and analgesia prn. - Follow up in one week if symptoms persist or worsen. - AMOXICILLIN 875 MG-POTASSIUM CLAVULANATE 125 MG TABLET - ALBUTEROL SULFATE 2.5 MG/3 ML (0.083 %) SOLUTION FOR NEBULIZATION - PREDNISONE 20 MG TABLET - ALBUTEROL SULFATE 90 MCG/ACTUATION BREATH ACTIVATED POWDER INHALER 2. Wheezing - ICD9: 786.07, ICD10: R06.2 See above - PREDNISONE 20 MG TABLET - ALBUTEROL SULFATE 90 MCG/ACTUATION BREATH ACTIVATED POWDER INHALER Pt advised to see PCP if symptoms persist or progress. Reviewed red flags with patient and when to seek care sooner. The patient indicates understanding of these issues and agrees with the plan. Brianna Ford PA-C Normal [facility] No Panel Information Nasal Screen MRSA/MSSA [facility] Work Phone: Vital Signs Date Time Vital Sign Value Performing Clinician Faci lity 01-07-2025 08:36-0400 Body height 170.[address] Dawson Laguna MD Work Phone: [place] 01-07-2025 08:36-0400 Body mass index (BMI) [Ratio] 37.9 kg/m2 Dr. Dawson Laguna MD Work Phone: [place] 01-07-2025 08:36-0400 Body weight 109.[address] Dawson Laguna MD Work Phone: [place] 01-07-2025 08:36-0400 Diastolic blood pressure 83 mm[Hg] Dr. Dawson Laguna MD Work Phone: [phone] [place] [address] 01-07-2025 08:36-0400 Heart rate 67 /min Dr. Dawson Laguna MD Work Phone: [phone] [place] [address] 01-07-2025 08:36-0400 Respiratory rate 20 /min Dr. Dawson Laguna MD Work Phone: [place] 01-07-2025 08:36-0400 Systolic blood pressure 118 mm[Hg] Dr. Dawson Laguna MD Work Phone: [place] 10-28-2024 11:10-0500 Body height 170.[address] Dawson Laguna MD Work Phone: [phone] [place] [address] 10-28-2024 11:10-0500 Body mass index (BMI) [Ratio] 38 kg/m2 Dr. Dawson Laguna MD Work Phone: [place] 10-28-2024 11:10-0500 Body weight 109.[address] Dawson Laguna MD Work Phone: [place] 02-13-2022 15:55-0400 Body temperature 97.4 [degF] Dr. Dawson Laguna Work Phone: [place] Work Phone: 02-13-2022 15:55-0400 Diastolic blood pressure 56 mm[Hg] Dr. Dawson Laguna Work Phone: [place] Work Phone: 02-13-2022 15:55-0400 Heart rate 64 /min Dr. Dawson Laguna Work Phone: [place] Work Phone: 02-13-2022 15:55-0400 Respiratory rate 16 /min Dr. Dawson Laguna Work Phone: [place] Work Phone: 02-13-2022 15:55-0400 SaO2% (BldA) [Mass fraction] 99 % Dr. Dawson Laguna Work Phone: [place] Work Phone: 02-13-2022 15:55-0400 Systolic blood pressure 127 mm[Hg] Dr. Dawson Laguna Work Phone: [place] Work Phone: 02-13-2022 12:07-0400 Body height 170.[address] Dawson Laguna Work Phone: [place] Work Phone: 02-13-2022 12:07-0400 Body mass index (BMI) [Ratio] 38.7 kg/m2 Dr. Dawson Laguna Work Phone: [place] Work Phone: 02-13-2022 12:07-0400 Body weight 112.[address] Dawson Laguna Work Phone: [place] Work Phone: 01-03-2022 12:57-0400 Body temperature 97.9 [degF] Dr. Dawson Laguna Work Phone: [place] Work Phone: 01-03-2022 12:57-0400 Diastolic blood pressure 68 mm[Hg] Dr. Dawson Laguna Work Phone: [place] Work Phone: 01-03-2022 12:57-0400 Heart rate 59 /min Dr. Dawson Laguna Work Phone: [place] Work Phone: 01-03-2022 12:57-0400 Respiratory rate 18 /min Dr. Dawson Laguna Work Phone: [place] Work Phone: 01-03-2022 12:57-0400 SaO2% (BldA) [Mass fraction] 97 % Dr. Dawson Laguna Work Phone: [place] Work Phone: 01-03-2022 12:57-0400 Systolic blood pressure 116 mm[Hg] Dr. Dawson Laguna Work Phone: [place] Work Phone: 01-03-2022 08:04-0400 Inhaled oxygen flow rate 4 L/min Dr. Dawson Laguna Work Phone: [place] Work Phone: 01-02-2022 07:12-0400 Body height 170.[address] Dawson Laguna Work Phone: [place] Work Phone: 01-02-2022 07:12-0400 Body mass index (BMI) [Ratio] 38.6 kg/m2 Dr. Dawson Laguna Work Phone: [place] Work Phone: 01-02-2022 07:12-0400 Body weight 111.[address] Dawson Laguna Work Phone: [place] Work Phone: 12-03-2021 12:16-0400 Body temperature 97.2 [degF] Dr. Dawson Laguna Work Phone: [place] Work Phone: 12-03-2021 12:16-0400 Diastolic blood pressure 80 mm[Hg] Dr. Dawson Laguna Work Phone: [place] Work Phone: 12-03-2021 12:16-0400 Heart rate 72 /min Dr. Dawson Laguna Work Phone: [place] Work Phone: 12-03-2021 12:16-0400 Respiratory rate 15 /min Dr. Dawson Laguna Work Phone: [place] Work Phone: 12-03-2021 12:16-0400 SaO2% (BldA) [Mass fraction] 98 % Dr. Dawson Laguna Work Phone: [place] Work Phone: 12-03-2021 12:16-0400 Systolic blood pressure 132 mm[Hg] Dr. Dawson Laguna Work Phone: [place] Work Phone: 11-06-2021 08:22-0400 Body height 170.[address] Dawson Laguna Work Phone: [place] Work Phone: 11-06-2021 08:22-0400 Body mass index (BMI) [Ratio] 38.7 kg/m2 Dr. Dawson Laguna Work Phone: [place] Work Phone: 11-06-2021 08:22-0400 Body weight 112.[address] Dawson Laguna Work Phone: [place] Work Phone: Encounters Encounter Date Encounter Type Care Provider Facility Start: 02-18-2025 ambulatory Dawson Laguna Facility:[facility] Start: 01-07-2025 End: 01-07-[address] Amy Reid MD -[facility] Work Phone: Start: 01-07-2025 End: 01-07-[address] Dawson Laguna MD Work Phone: [facility] Work Phone: Start: 01-07-2025 End: 01-07-2025 ambulatory Dawson Laguna Facility:[place] Start: 12-17-2024 End: 12-17-[address] Dawson Laguna MD -Laboratory [facility] Start: 12-17-2024 End: 12-17-2024 ambulatory Dawson Laguna Facility:[place] Start: 10-28-2024 End: 10-28-[address] Jim Whelan DO -[facility] Work Phone: Start: 10-28-2024 End: 10-28-2024 ambulatory Dawson Laguna Facility:[facility] Start: 10-21-2024 End: 10-21-[address] Dawson Laguna MD Work Phone: [place] Work Phone: Start: 10-21-2024 End: 10-21-[address] Dawosn Laguna MD -Laboratory, [facility] Start: 10-21-2024 End: 10-21-2024 ambulatory Dawson Laguna Facility:[place] Start: 11-07-2023 End: 11-07-2023 ambulatory [place] Work Phone: Start: 11-07-2023 End: 11-07-2023 Patient encounter procedure [facility] Start: 05-11-2022 Non-patient / Non-visit Dr. Ben Laguna Work Phone: [place] Start: 05-11-2022 End: 05-11-[address] Dawson Laguna Work Phone: [place] Work Phone: Start: 05-11-2022 End: 05-11-[address] Dawson Laguna Work Phone: [place] Start: 04-26-2022 End: 04-26-[address] Dawson Laguna Work Phone: [place] Work Phone: Start: 04-26-2022 End: 04-26-[address] Dawson Laguna Work Phone: [facility] Start: 03-28-2022 End: 03-28-[address] Dawson Laguna Work Phone: [facility] Start: 03-12-2022 End: 03-12-[address] Dawson Laguna Work Phone: [facility] Start: 02-28-[address] [facility] Start: 02-21-2022 End: 02-21-[address] Dawson Laguna Work Phone: [facility] Start: 02-13-2022 Non-patient / Non-visit Dr. Ben Laguna Work Phone: [facility] Start: 02-13-2022 End: 02-13-2022 Admission to same day surgery center Dr. Dawson Laguna Work Phone: [place] Start: 02-12-2022 End: 02-12-[address] Dawson Laguna Work Phone: [facility] Start: 01-25-2022 End: 01-25-[address] Dawson Laguna Work Phone: [facility] Start: 01-18-[address] [facility] Start: 01-15-2022 Non-patient / Non-visit Dr. Ben Laguna Work Phone: [facility] Start: 01-15-2022 End: 01-15-[address] Dawson Laguna Work Phone: [place] Start: 01-15-2022 End: 01-15-[address] Dawson Laguna Work Phone: [facility] Start: 01-10-2022 End: 01-10-[address] Dawson Laguna Work Phone: [facility] Start: 01-03-2022 Non-patient / Non-visit Dr. Ben Laguna Work Phone: [facility] Start: 01-02-2022 Non-patient / Non-visit Dr. Ben Laguna Work Phone: [facility] Start: 01-02-2022 End: 01-03-2022 Evaluation and management of inpatient Dr. Dawson Laguna Work Phone: [place] Start: 12-21-2021 Non-patient / Non-visit Dr. Ben Laguna Work Phone: [facility] Start: 12-12-2021 End: 12-12-[address] Dawson Laguna Work Phone: [facility] Start: 12-03-2021 End: 12-03-[address] Dawson Laguna Work Phone: [place] Start: 11-06-2021 End: 11-06-[address] Dawson Laguna Work Phone: [facility] Start: 10-26-2021 End: 10-26-[address] Dawson Laguna Work Phone: [place] [place] Procedures Date Procedure Procedure Detail Performing Clinician Start: 10-28-2024 XR knee, [address] Ben Laguna MD Work Phone: Start: 10-21-2024 Prostate specific an tigen measurement Dr. Dawson Laguna MD Work Phone: Comment on above: This test was perfor med using the [employer] tPSA method. Measured values of a patient sample can vary depending on the testing procedure used. PSA values determined on patient samples by different testing procedures cannot be used interchangeably. If there is a change in PSA assays while monitoring therapy, sequential testing should be performed to confirm baseline values. Start: 03-28-2022 Radiologic examinati on of knee Dr. Dawson Laguna Work Phone: Start: 02-21-2022 Radiologic examinati on of knee Dr. Dawson Laguna Work Phone: Start: 01-10-2022 Radiologic examinati on of knee Dr. Dawson Laguna Work Phone: Start: 01-02-2022 Radiologic examinati on of knee Dr. Dawson Laguna Work Phone: Start: 01-02-2022 Total Knee Replaceme nt Robotic Arm Haydee (Right) Dr. Dawson Laguna Work Phone: Start: 12-21-2021 Nasal Screen MRSA/MSSA Dr. Dawson Laguna Work Phone: Start: 12-12-2021 MRI of lower extremity Dr. Dawson Laguna Work Phone: Start: 10-26-2021 Radiologic examinati on of knee Dr. Dawson Laguna Work Phone: Nasal Screen MRSA/MSSA Dr. Delbert Laguna Work Phone: Plan of Treatment Date Care Activity Detail Author Start: 01-07-2025 Patient referral [place] Work Phone: Start: 01-07-2025 Evaluation of diagnostic study results [place] Start: 02-13-2022 Application of ice collar, cap or bag [place] Work Phone: Start: 02-13-2022 Catheterization of vein [facility] Work Phone: Start: 02-13-2022 Elevation of affected extremity [place] Work Phone: Start: 02-13-2022 Following clinical pathway protocol [place] Work Phone: Start: 02-13-2022 End: 02-13-2022 Patient discharge [place] Work Phone: Start: 02-13-2022 Procedure discontinued [place] Work Phone: Start: 02-13-2022 Taking patient vital signs [facility] Work Phone: Start: 02-13-2022 Vital signs measurements [facility] Work Phone: Start: 02-13-2022 [place] Work Phone: Start: 02-13-2022 Anesthesia closed procedures knee joint ANESTH KNEE JOINT PROCEDURE [place] Work Phone: Start: 02-13-2022 Manipulation knee joint under general anesthesia FIXATION OF KNEE JOINT [place] Work Phone: Start: 02-13-2022 Medication education [place] Work Phone: Start: 01-03-2022 Patient discharge [place] Work Phone: Start: 01-02-2022 Following clinical pathway protocol [place] Work Phone: Start: 01-02-2022 Oxygen therapy [place] Work Phone: Start: 01-02-2022 Provision of overbed trapeze [facility] Work Phone: Start: 01-02-2022 Application of intermittent pneumatic compression device [place] Work Phone: Start: 01-02-2022 Ambulation therapy management [facility] Work Phone: Start: 01-02-2022 Application of antithromboembolic stockings [place] Work Phone: Start: 01-02-2022 Application of device [place] Work Phone: Start: 01-02-2022 Application of elastic bandage [place] Work Phone: Start: 01-02-2022 Assessment of risk of venous thromboembolism [place] Work Phone: Start: 01-02-2022 Catheterization of vein [facility] Work Phone: Start: 01-02-2022 Exercises [place] Work Phone: Start: 01-02-2022 Following clinical pathway protocol [place] Work Phone: Start: 01-02-2022 Incentive spirometry [place] Work Phone: Start: 01-02-2022 Introduction of urinary catheter [place] Work Phone: Start: 01-02-2022 Measuring intake and output [facility] Work Phone: Start: 01-02-2022 Neurovascular assessment [facility] Work Phone: Start: 01-02-2022 Patient education [place] Work Phone: Start: 01-02-2022 Procedure discontinued [place] Work Phone: Start: 01-02-2022 Provision of activity privileges [place] Work Phone: Start: 01-02-2022 Referral to occupational therapist [place] Work Phone: Start: 01-02-2022 Referral to service [place] Work Phone: Start: 01-02-2022 Vital signs measurements [facility] Work Phone: Start: 01-02-2022 Wound care [place] Work Phone: Start: 01-02-2022 [place] Work Phone: Start: 01-02-2022 Admission procedure [place] Work Phone: Comprehensive metabo lic 2000 panel - Serum or Plasma [place] NM Heart Views W str ess and W radionuclide IV [place] Patient referral [facility] Work Phone: Thyroid stimulating hormone measurement [place] US Heart [facility] US.doppler Lower ext remity vein [place] Work Phone: XR Knee 3 Views [facility] Work Phone: Payers Date Payer Category Payer Private Health Insurance [id number] 2024 Self-pay [id number] 2013 Private Health Insurance [facility] [id number] Private Health Insurance [facility] [id number] Private Health Insurance [facility] [id number] Unknown [facility] [id number] Unknown [id number] Unknown [id number] Unknown [id number] Unknown [id number] Unknown [id number] Unknown [id number] Social History Date Type Detail Facility Start: 12-03-2021 End: 05-09-2023 Tobacco smoking status NHIS Unknown if ever smoked [place] Start: 1950 Sex Assigned At Male [facility] Start: 05-09-2023 [facility] [place] Start: 11-05-2024 Sex Male (finding) [place] Start: 12-31-2024 Tobacco smoking stat us DCIS Never smoked tobacco (finding) [place] Medical Equipment Procedure Code Equipment Code Equipment Origin al Text Equipment Identifier Dates Orthopaedic ceme nt, non-antimicrobial ()[id number] FDA Start: 01-02-2022 Orthopaedic ceme nt, non-antimicrobial ()[id number] FDA Start: 01-02-2022 ([id number]) Uncoated knee fe mur prosthesis, metallic ()[id number] FDA Start: 01-02-2022 ([id number]) Uncoated knee ti opal prosthesis, metallic ()[id number] FDA Start: 01-02-2022 ([id number]) Polyethylene pat alex prosthesis ()[id number] FDA Start: 01-02-2022 ([id number]) Tibial insert ()[id number] FDA Start: 01-02-2022 Goals Date Patient Goal Desired Activity /State Functional Status Date Assessment Result Facility 01-03-2022 Functional status Standby Assist [place] Work Phone: 01-02-2022 Functional status Ambulates;Bathroom Priv ilege [place] Work Phone: Mental Status Date Assessment Result Facility 02-13-2022 Cognitive function Voice/Name [facility] Work Phone: 01-03-2022 Cognitive function Level Of Cons ciousness Awake;Alert;Appropriate;Follow s Commands [place] Work Phone: 01-02-2022 Cognitive function Voice/Name [facility] Work Phone: Evaluation note 10-28-2024 Note Date & Type Note Facility 10-28-2024 Evaluation note Diagnosis Onset Date Resolution History of total right knee replacement acute October 28, 2024 10:55am [place] Work Phone: Evaluation note 10-28-2024 Note Date & Type Note Facility 10-28-2024 Evaluation note Diagnosis Onset Date Resolution History of total right knee replacement inactive October 28, 2024 10:55am Atrial fibrillation acute December 242024 9:50am [facility] Work Phone: Evaluation note 10-28-2024 Note Date & Type Note Facility 10-28-2024 Evaluation note Diagnosis Onset Date Resolution History of total right knee replacement inactive October 28, 2024 10:55am Atrial fibrillation acute December 242024 9:50am HTN (hypertension) chronic January 072024 9:50am Obesity (BMI 30-39.9) chronic January 07, 2025 9:50am Suspected sleep apnea chronic January 07, 2025 9:50am History of CVA (cerebrovascular accident) resolved January 07, 2025 9 :50am [place] Work Phone: Evaluation note Note Date & Type Note Facility Evaluation note Diagnosis Onset Date Osteoarthritis of right knee acute Pharyngitis acute URI (upper respiratory infection) acute [place] Work Phone: Evaluation note Note Date & Type Note Facility Evaluation note Diagnosis Onset Date Osteoarthritis of right knee acute Pharyngitis acute URI (upper respiratory infection) acute History of total knee arthroplasty acute History of total knee arthroplasty acute Other acute postprocedural pain acute History of total knee arthroplasty acute Other acute postprocedural pain acute [place] Work Phone: Evaluation note Note Date & Type Note Facility Evaluation note Diagnosis Onset Date History of total knee arthroplasty acute History of total knee arthroplasty acute Other acute postprocedural pain acute History of total knee arthroplasty acute Other acute postprocedural pain acute History of total knee arthroplasty acute Other acute postprocedural pain acute Arthrofibrosis of knee joint acute History of total knee arthroplasty acute Stiffness of right knee none active Arthrofibrosis of knee joint acute History of total knee arthroplasty acute Stiffness of right knee none active Orthopedic aftercare acute S/P total knee arthroplasty acute [place] Work Phone: Evaluation note Note Date & Type Note Facility Evaluation note Diagnosis Onset Date History of total knee arthroplasty acute Other acute postprocedural pain acute History of total knee arthroplasty acute Other acute postprocedural pain acute Arthrofibrosis of knee joint acute History of total knee arthroplasty acute Stiffness of right knee none active Arthrofibrosis of knee joint acute History of total knee arthroplasty acute Stiffness of right knee none active Orthopedic aftercare acute S/P total knee arthroplasty acute [place] Work Phone: Evaluation note Note Date & Type Note Facility Evaluation note No assessment information availa ble [place] Work Phone: Reason for referral (narrative) Note Date & Type Note Facility Reason for referral (narrative) No reason for referral information available [place] Work Phone: Summary Purpose Family History No Family History Records FoundNo Family History Records Found Advance Directives No Advanced Directives Records Found Advance Directive Response Recorded Date/ Time Advance Directives No December 20, 2 016 8:24am Living Will No December 21, 2015 8:24am Power of Visual Inspector No December 20 8:24am Advance Directive Response Recorded Date/ Time Advance Directives No December 20, 2 016 8:24am Living Will No December 19, 2021 2:45pm Power of Visual Inspector No December 19 2:45pm Advance Directive Response Recorded Date/ Time Advance Directives No February 12 8:56am Living Will No February 12, 2022 12:03pm Power of Visual Inspector No February 12 12:03pm Advance Directive Response Recorded Date/ Time Advance Directives No February 12 8:56am Chief Complaint and Reason for Visit Chief Complaint RIGHT KNEE SORE THROAT, COUGH PRE OP RIGHT TKR Reason for Visit Osteoarthritis of ri ght knee Pharyngitis URI (upper respiratory infection) Chief Complaint RIGHT KNEE SORE THROAT, COUGH PRE OP RIGHT TKR RT TOTAL KNEE ROBOTIC RT TOTAL KNEE ROBOTIC RT TOTAL KNEE ROBOTIC RT TOTAL KNEE ROBOTIC RIGHT KNEE xray right knee RIGHT CALF SWELLING AND PAIN RIGHT TOTAL KNEE/RX WILL BE FAXED Reason for Visit Osteoarthritis of ri ght knee Pharyngitis URI (upper respiratory infection) History of total knee arthroplasty History of total knee arthroplasty Other acute postprocedural pain History of total knee arthroplasty Other acute postprocedural pain Chief Complaint RT TOTAL KNEE ROBOTI C RT TOTAL KNEE ROBOTIC RT TOTAL KNEE ROBOTIC RIGHT KNEE xray right knee RIGHT CALF SWELLING AND PAIN right knee right knee xray RT KNEE RIGHT TOTAL KNEE/RX WILL BE FAXED RIGHT KNEE 10 days post op xray Reason for Visit History of total kne e arthroplasty History of total knee arthroplasty Other acute postprocedural pain History of total knee arthroplasty Other acute postprocedural pain History of total knee arthroplasty Other acute postprocedural pain Arthrofibrosis of knee joint History of total knee arthroplasty Stiffness of right knee Arthrofibrosis of knee joint History of total knee arthroplasty Stiffness of right knee Orthopedic aftercare S/P total knee arthroplasty Chief Complaint right knee RIGHT CALF SWELLING AND PAIN right knee right knee xray RT KNEE RIGHT TOTAL KNEE/RX WILL BE FAXED RIGHT KNEE 10 days post op xray RECHECK DVT Reason for Visit History of total kne e arthroplasty Other acute postprocedural pain History of total knee arthroplasty Other acute postprocedural pain Arthrofibrosis of knee joint History of total knee arthroplasty Stiffness of right knee Arthrofibrosis of knee joint History of total knee arthroplasty Stiffness of right knee Orthopedic aftercare S/P total knee arthroplasty Chief Complaint Admit Date RIGHT KNEE October 28, 2024 10:5 5am Room 2 October 28, 2024 11:2 0am Reason for Visit Admit Date History of total right knee replacement October 28, 2024 10:55am Chief Complaint Admit Date RIGHT KNEE October 28, 2024 10:5 5am Room 2 October 28, 2024 11:2 0am Atrial fibrillation January 07, 2025 9:50a m Reason for Visit Admit Date History of total right knee replacement October 28, 2024 10:55am Atrial fibrillation January 07, 2025 9:50a m Chief Complaint Admit Date RIGHT KNEE October 28, 2024 10:5 5am Room 2 October 28, 2024 11:2 0am Atrial fibrillation January 07, 2025 9:50a m INT LABS January 07, 2025 10:42 am Reason for Visit Admit Date History of total right knee replacement October 28, 2024 10:55am Atrial fibrillation January 07, 2025 9:50a m HTN (hypertension) January 07, 2025 9:50a m Obesity (BMI 30-39.9) January 07, 2025 9:5 0am Suspected sleep apnea January 07, 2025 9:5 0am History of CVA (cerebrovascular accident ) January 07, 2025 9:50am Additional Source Comments (unrecognized sect ion and content) No Status Records FoundNo Status Records Found INFORMATION SOURCE (unrecogn ized section and content) DATE CREATED AUTHOR 08/23/2019 [facility] DATE CREATED AUTHOR AUTHOR'S AGUILAR PRINGLEMYRIAM [facility] Goals (unrecognized section and content) Goals may be documented in a n alternate sectionGoals may be documented in an alternate sectionGoals may be documented in an alternate sectionGoals may be documented in an alternate sectionGoals may be documented in an alternate sectionGoals may be documented in an alternate section Care Teams (unrecognized sec tion and content) Team Status: Active Member Role Status Dates Dr. Dawson Laguna MD Family Provider Active Dr. Dawson Laguna MD Primary Care Provider Active Team Status: Inactive Member Role Status Dates Dr. Dawson Laguna MD Primary Care Provider, Attending Provider Active Team Status: Inactive Member Role Status Dates Dr. Dawson Laguna MD Primary Care Provider Active Start: October 21, 2024 End: October 21, 2024 Dr. Dawson Laguna MD Attending Provider Active Start: October 21, 2024 End: October 21, 2024 Dr. Dawson Laguna MD Referring Provider Active Start: October 21, 2024 End: October 21, 2024 Team Status: Inactive Member Role Status Dates Dr. Dawson Laguna MD Primary Care Provider Active Start: October 28, 2024 End: October 28, 2024 Dr. Dawson Laguna MD Referring Provider Active Start: October 28, 2024 End: October 28, 2024 Dr. Jim Whelan DO Attending Provider Active Start: October 28, 2024 End: October 28, 2024 Team Status: Inactive Member Role Status Dates Dr. Dawson Laguna MD Primary Care Provider Active Start: October 28, 2024 End: October 28, 2024 Dr. Clifford Sow MD Attending Provider Active S tart: October 28, 2024 End: October 28, 2024 Team Status: Inactive Member Role Status Dates Dr. Dawson Laguna MD Primary Care Provider Active Start: December 17, 2024 End: December 17, 2024 Dr. Dawson Laguna MD Attending Provider Active Start: December 17, 2024 End: December 17, 2024 Dr. Dawson Laguna MD Referring Provider Active Start: December 17, 2024 End: December 17, 2024 Team Status: Inactive Member Role Status Dates Dr. Dawson Laguna MD Primary Care Provider Active Start: January 07, 2025 End: January 07, 2025 Dr. Dawson Laguna MD Referring Provider Active Start: January 07, 2025 End: January 07, 2025 Dr. Amy Reid MD Attending Provider Active Start: January 07, 2025 End: January 07, 2025 Team Status: Active Member Role Status Dates Dr. Dawson Laguna MD Primary Care Provider Active Team Status: Inactive Member Role Status Dates Dr. Dawson Laguna MD Primary Care Provider Active Start: January 07, 2025 End: January 07, 2025 Dr. Amy Reid MD Attending Provider Active Start: January 07, 2025 End: January 07, 2025 Dr. Amy Reid MD Referring Provider Active Start: January 07, 2025 End: January 07, 2025 FOR RECORDS PERTAINING TO PATIENTS WHO ARE [...] BE BASED ON THE PRIMARY CLINICAL RECORDS. [facility] [employer] provides no warranty or guarantee of the accuracy or completeness of information in this document.
--- NOTE | 2025-02-18 06:40 | ECHOD_ITS ---
Reason For Study Reason For Study: TIA/CVA Procedure This was a 2D Doppler, Color Flow transthoracic echocardiogram. Exam performed in department. Left Ventricle Normal size and thickness. Borderline LV systolic function. Estimated LVEF 45%. Stage I diastolic dysfunction. Right Ventricle Normal right ventricle. Atria There is severe biatrial dilatation. Bubble contrast study is negative for PFO/ASD. Mitral Valve Mild (1+) mitral valve insufficiency. Tricuspid Valve Mild to moderate (1-2+) tricuspid valve insufficiency. Normal pulmonary artery pressure. Aortic Valve Aortic sclerosis, no stenosis. Pulmonic Valve Mild (1+) pulmonic valve insufficiency. Great Vessels Mildly dilated aortic root. Pericardium/Pleural No pericardial effusion. Medication 22 gauge I.V. with prn adaptor inserted into left arm. Performed a rapid injection of agitated mix of 9 cc saline and 1cc air to assess for atrial septal defect. MMode/2D Measurements & Calculations LVIDd: 4.7 cm IVSd: 1.0 cm Ao root diam: 4.0 cm LVIDs: 3.8 cm LVPWd: 1.0 cm LA dimension: 4.7 cm RVDd: 4.2 cm FS: 19.7 % LAV(MOD-bp): 99.4 ml LVAd ap4: 30.8 cm2 SV(MOD-sp4): 41.6 ml LAV(MOD-bp) Indexed: 45.3 ml/m2 LVLd ap4: 7.5 cm SI(MOD-sp4): 19.0 ml/m2 LAV(MOD-sp2): 90.5 ml EDV(MOD-sp4): 102.7 ml LAV(MOD-sp4): 94.5 ml EDV(sp4-el): 107.5 ml LVAs ap4: 22.4 cm2 LVLs ap4: 7.1 cm ESV(MOD-sp4): 61.1 ml ESV(sp4-el): 60.4 ml EF(MOD-sp4): 40.5 % EF(sp4-el): 43.8 % SV(sp4-el): 47.1 ml LA A4 area: 28.3 cm2 LA dimension(2D): 4.6 cm RA A4 area: 26.1 cm2 TAPSE: 1.5 cm Doppler Measurements & Calculations MV E max nilam: 100.7 cm/sec MV V2 max: 102.6 cm/sec Ao V2 max: 123.0 cm/sec MV max P.2 mmHg Ao max P.1 mmHg MV V2 mean: 62.2 cm/sec Ao V2 mean: 90.1 cm/sec MV mean P.8 mmHg Ao mean P.7 mmHg MV V2 VTI: 22.1 cm Ao V2 VTI: 25.0 cm LV V1 max: 75.8 cm/sec MR max nilam: 557.4 cm/sec PA V2 max: 55.4 cm/sec LV V1 max P.3 mmHg MR max P.3 mmHg MR mean nilam: 425.1 cm/sec MR mean P.1 mmHg MR VTI: 209.6 cm TR max nilam: 257.6 cm/sec TR max P.5 mmHg ECHO/Echo Complete Interpretation Summary Borderline LV systolic function. Estimated LVEF 45%. Stage I diastolic dysfunct ion. There is severe biatrial dilatation. Bubble contrast study is negative for PFO/ASD. Mild (1+) mitral valve insufficiency. Mild to moderate (1-2+) tricuspid valve insufficiency. Aortic sclerosis, no stenosis. Mild (1+) pulmonic valve insufficiency. Mildly dilated aortic root. Ordering Physician: Amy Reid Referring Physician: Amy Reid Performed By: Lui Yates RCS
--- NOTE | 2025-02-18 13:39 | STRESSREP ---
Stress Test Report Date: 02/18/2025 Procedure: Pharmacologic stress nuclear imaging study Indications: Arrhythmia Consent: Per the patient Procedure: The patient underwent pharmacologic (Regadenoson 0.4mg ) evaluation with a peak heart rate of 110 beats per minute (74%predicted maximal heart rate) and a peak blood pressure of 142/104 mmHg. The baseline ECG demonstrated atrial fibrillation. The peak pharmacologic ECG did not show any diagnostic ischemic changes. Baseline atrial fibrillation. There was no complaint of chest discomfort during pharmacologic infusion or recovery. The patient was injected with 14.3 millicuries of technetium 99m Cardiolite and subsequently rest SPECT Cardiolite nuclear imaging was obtained in the horizontal long, vertical long, and short axis views. The patient underwent pharmacologic (Regadenoson) evaluation. The patient was injected with 44.8 millicuries of technetium 99m Cardiolite and subsequently stress SPECT Cardiolite nuclear imaging was obtained in the horizontal long, vertical long, and short axis views. A gated Cardiolite study at peak stress was obtained. The examination was stopped secondary to completion of protocol. Rest and stress SPECT Cardiolite nuclear imaging status post realignment, normalization, and attenuation correction demonstrate mildly reduced perfusion of the basal inferior wall post pharmacological stress. There is end systolic thickening and brightening. The gated Cardiolite study demonstrates myocardial thickening and inward wall motion. The reported LVEF is 47%. Impression: 1. Pharmacologic (Regadenoson) evaluation 2. Peak pharmacologic ECG with no diagnostic ischemic changes. 3. Baseline atrial fibrillation. 5. Mildly reduced perfusion of the basal inferior wall post pharmacological stress, suggestive of mild ischemia. 6. The gated Cardiolite study reports an LVEF of 47%. This note was generated with [employer] software. It may contain incorrect words, spelling, and punctuation that were not noted in checking the note before signing.
== END | disposition home or self-care (01) ==
PROVIDERS: PCP Family Medicine; Referring Provider Internal Medicine Cardiovascular Disease; Visit Provider Internal Medicine Cardiovascular Disease
DX: I48.91 Unspecified atrial fibrillation (principal); Z86.73 Personal history of transient ischemic attack (TIA), and cerebral infarction without residual deficits; R94.31 Abnormal electrocardiogram [ECG] [EKG]
CPT/HCPCS: 78452; 93017; 93306; A9500; A4216; J2785

== ENCOUNTER → 2025-04-08 | Outpatient (CLI) | payer MEDICARE, SELFPAY ==
[2025-04-08 18:16] LABS: Creatinine, Urine (random) 197.00 mg/dL (39.00-259.00); Microalbumin,Random Urine 14.2 mg/L (<20 mg/L)
[2025-04-08 18:18] LABS: AST(SGOT) 17 U/L (<=37); Alanine Aminotransfer ALT/SGPT 15 U/L (<=46); Albumin, Serum 4.0 g/dL (3.4-4.8); Alkaline Phosphatase 55 U/L (40-129); Anion Gap 11 (5-15); BUN 12 mg/dL (4-19); BUN/Creat Ratio 13.7 RATIO (10-20); Calcium,Total 9.4 mg/dL (7.6-11.0); Carbon Dioxide 22.2 mmol/L (21.0-32.0); Chloride 108 mmol/L (98-108); Cholesterol 134 mg/dL (<=200); Globulin 3.0 g/dL (2.2-4.2); Glucose 142 mg/dL (70-99); Low Density Lipoprotein Calc. 48 mg/dL; Potassium 4.1 mmol/L (3.3-5.1); Triglycerides 292 mg/dL; Very Low Density Lipoprotein 58 mg/dL (5-40); cholesterol:hdl ratio screen 4.84
== END | disposition home or self-care (01) ==
LOC: MFPLAB 15:23
PROVIDERS: PCP Family Medicine; Visit Provider Family Medicine
DX: E78.00 Pure hypercholesterolemia, unspecified (principal); I10 Essential (primary) hypertension
CPT/HCPCS: 36415; 80053; 80061; 82043; 82570

== ENCOUNTER → 2025-07-08 | Outpatient (CLI) | payer MEDICARE, SELFPAY ==
--- NOTE | 2025-07-08 14:22 | RAD_ITS ---
PROCEDURE: CHEST PA AND LATERAL 07/08/2025 REASON FOR EXAM: HAVING LEFT HEART CATH TECHNIQUE: Procedure Code: RADCXR Modality: DX Procedure: CHEST PA AND LATERAL COMPARISON: Chest x-ray study dated 04/29/2020 FINDINGS: Hardware: None Heart: Heart size and configuration are within normal limits. Arteriosclerotic vascular disease of the aorta is noted. Mediastinum: Mediastinum is unremarkable. Lungs: Trachea is midline. Lungs are expanded without evidence of atelectasis, consolidation, effusion, pneumonic infiltrate or pneumothorax. Bones: No acute osseous abnormality is noted. There is elevation of the left hemidiaphragm which may be due to eventration or phrenic nerve paralysis. RAD/Chest PA and Lateral IMPRESSION: No acute cardiopulmonary process is identified radiographically. Reading Location: [id number]
[2025-07-08 15:31] LABS: Hematocrit 39.8 % (40-54); Hemoglobin 13.6 g/dL (13.0-16.5); Immature Granulocytes Count 0.020 X10^3/uL (0.0-0.0); Mean Corp Hgb Conc 34.2 g/dL (32-36); Mean Corpuscular Volume 86.1 fL (80-94); Mean Platelet Vol. 11.5 fl (6.2-12.0); NRBC Flagged by Analyzer 0 % (0-5); Platelet Count 161 K/mm3 (150-450); RBC Distribution Width CV 12.2 % (11.6-14.6); RBC Distribution Width SD 38.7 fl (35.1-43.9); Red Blood Count 4.62 M/mm3 (4.6-6.2); White Blood Count 5.6 K/mm3 (4.4-11.0)
[2025-07-08 15:38] LABS: Prothrombin Time (Protime)PT. 20.2 SECONDS (11.7-14.9)
[2025-07-08 15:39] LABS: Partial Thromboplast Time 34.3 Seconds (24.1-36.2)
[2025-07-08 16:01] LABS: AST(SGOT) 18 U/L (<=37); Alanine Aminotransfer ALT/SGPT 17 U/L (<=46); Albumin, Serum 3.9 g/dL (3.4-4.8); Alkaline Phosphatase 49 U/L (40-129); Anion Gap 9 (5-15); BUN 11 mg/dL (4-19); BUN/Creat Ratio 14.7 RATIO (10-20); Calcium,Total 9.4 mg/dL (7.6-11.0); Carbon Dioxide 25.3 mmol/L (21.0-32.0); Chloride 107 mmol/L (98-108); Globulin 3.0 g/dL (2.2-4.2); Glucose 111 mg/dL (70-99); Potassium 4.0 mmol/L (3.3-5.1)
--- OUTSIDE RECORDS SUMMARY | 2025-07-08 18:52 | XMS RPT_ITS | CCD ---
Author Organization [facility] [employer] Care Team Providers Care Cessation Systems Outreach Specialist Name Role Phone Dr. Dawson Laguna Primary Care Provider Dr. Dawson Laguna Referring Provider Dr. Jim Whelan Attending Provider 1([facility])[phone] Richard [employer] REPRESENTATIVE, JAVAD De La Paz Attending Provider Dr. Dawson Larose Attending Provider 1([facility])[phone] Dr. Jim Whelan Referring Provider 1([facility]) -[phone] Dr. Jim Whelan Admit Provider 1([facility])-[phone] Jim Whelan Other Provider 1([facility])-[phone] BEN Daily Attending Provider Dr. Clifford Sow Attending Provider Dr. Cuong Crenshaw Attending Provider Dr. Dawson Laguna Primary Care Provider Dr. Jim Whelan Attending Provider 1([facility])[phone] Dr. Jim Whelan Referring Provider 1([facility])[phone] Dr. Dawson Laguna Referring Provider BEN Daily Referring Provider BEN Alejandro Attending Provider Dr. Dawson Laguna Primary Care Provider Dr. Dawson Laguna Referring Provider BEN Daily Attending Provider Dr. Jim Whelan Attending Provider Dr. Jim Whelan Other Provider 1([facility])[phone] Clifford Sow Attending Provider Dr. Jim Whelan Referring Provider Luz Elena CAMILO, Dr. Osman Primary Care Provider Luz Elena CAMILO, Dr. Osman Attending Provider Luz Elena CAMILO, Dr. Osman Referring Provider Cleopatra GARCIA, Dr. Fernandez Attending Provider Juanjose CAMILO, Dr. Horton Attending Provider Franklin CAMILO, Dr. Reyes Attending Provider Franklin CAMILO, Dr. Reyes Referring Provider Luz Elena CAMILO, Dr. Osman Primary Care Provider Luz Elena CAMILO, Dr. Osman Referring Provider Luz Elena CAMILO, Dr. Osman Attending Provider Franklin CAMILO, Dr. Reyes Other Provider Luz Elena CAMILO, Dr. Osman Primary Care Provider Luz Elena CAMILO, Dr. Osman Referring Provider Dawson Laguna Referring Unavailable Laguna, Dawson Primary Care Unavailable Franklin, Amy Attending Unavailable Laguna, Dawson Primary Care Unavailable JuanjoseClifford polk Attending Unavailable Franklin, Amy Referring Unavailable Laguna, Dawson Primary Care Unavailable Franklin, Amy Consulting Unavailable Franklin, Amy Attending Unavailable Jim Whelan Attending Unavailable Laguna, Dawson Referring Unavailable Laguna, Dawson Primary Care Unavailable Laguna, Dawson Attending Unavailable Laguna, Dawson Referring Unavailable Laguna, Dawson Primary Care Unavailable Laguna, Dawson Primary Care Unavailable Laguna, Dawson Attending Unavailable Franklin, Amy Referring Unavailable Laguna, Dawson Primary Care Unavailable Franklin, Amy Attending Unavailable Franklin, Amy Referring Unavailable Laguna, Dawson Primary Care Unavailable Franklin, Amy Attending Unavailable Laguna, Dawson Attending Unavailable Laguna, Dawson Referring Unavailable Laguna, Dawson Primary Care Unavailable Medications Current Medications Medication Drug Class(es) Dates Sig (Normalized) Sig (Original) metoprolol tartrate 25 mg oral tablet (4 sources) beta-Adrenergic Maeve Start: 12-31-2024 take 1 tablet by mouth twice daily Metoprolol Tartrate 25 mg tablet Active 25 mg PO TWICE A DAY December 31, 2024 12:00am pantoprazole 40 mg delayed release oral tablet (10 sources) Proton Pump Inhibitor Start: 12-21-2015 take 1 tablet by mouth once daily Pantoprazole 40 MG tablet Active 40 mg PO DAILY December 21, 2015 12:00am GERD pravastatin sodium 40 mg oral tablet (10 sources) HMG-CoA Reductase Inhibitor Start: 12-21-2015 take 1 tablet by mouth at bedtime Pravastatin 40 MG tablet Active 40 mg PO AT BEDTIME December 21, 2015 12:00am CHOLESTEROL rivaroxaban 20 mg oral tablet (4 sources) Factor Xa Inhibitor Start: 01-07-2025 take 1 tablet by mouth once daily Rivaroxaban (Xarelto) 20 mg tablet Active 20 mg PO daily January 07, 2025 12:00am tamsulosin hydrochloride 0.4 mg oral capsule (4 sources) alpha-Adrenergic Maeve Start: 12-31-2024 take 1 capsule by mouth once daily Tamsulosin 0.4 mg capsule Active 0.4 mg PO daily December 31, 2024 12:00am traMADol hydrochloride 50 mg oral tablet (10 sources) Opioid Agonist Start: 12-31-2024 take 2 tablets by mouth twice daily Tramadol 50 mg tablet Active 100 mg PO TWICE A DAY December 31, 2024 10:56am Start: 11-28-2022 End: 12-31-2024 Tramadol 50 mg tablet Discon tinued 50 mg PO as needed November 28, 2022 12:00am December 31, 2024 10:59am valsartan 80 mg oral tablet (14 sources) Angiotensin 2 Receptor Maeve Start: 12-31-2024 take 1 tablet by mouth once daily Valsartan 80 mg tablet Active 80 mg PO daily December 31, 2024 12:00am Start: 12-21-2015 End: 05-09-2023 take 1 tablet by mouth once daily Valsartan 80 MG tablet Discontinued 80 mg PO DAILY December 21, 2015 12:00am May 09, 2023 11:26am BP Completed/Discontinued Medications Medication Drug Class(es) Dates Sig (Normalized) Sig (Original) acetaminophen 500 mg oral tablet (9 sources) Start: 01-03-2022 End: 12-31-2024 take 2 tablets by mouth every six hours Acetaminophen 500 mg Tablet Discontinued 1000 mg PO EVERY 6 HOURS 100 January 03, 2022 12:00am December 31, 2024 10:59am Start: 01-03-2022 take 1000 mg by mout h every six hours Acetaminophen Active 1000 MG PO EVERY 6 HOURS January 03, 2022 12:00am acetaminophen 325 mg / oxyCODONE hydrochloride 5 mg oral tablet (10 sources) Opioid Agonist Start: 12-27-2015 End: 04-17-2021 [...] 5 mg PO TWICE A DAY 60 3 February 16, 2022 2:44pm February 16, 2022 [...] Discontinued 2.5 mg PO TWICE A DAY 28 January 03, 2022 12:00am November 28, 2022 8:09am On Hold: Order Changed clopidogrel 75 mg oral tablet (12 sources) [id number] Platelet Inhibitor Start: 11-28-2022 End: 12-31-2024 take 1 tablet by mouth once daily Clopidogrel 75 mg tablet Discontinued 75 mg PO daily December 31, 2024 10:58am December 31, 2024 11:00am Start: 12-21-2015 take 75 mg by mouth once daily Clopidogrel Active 75 MG PO DAILY December 21, 2015 9:38am docusate sodium 100 mg oral capsule (10 sources) Start: 12-27-2015 End: 04-17-2021 take 1 capsule by mouth twice daily as needed for constipation Docusate Sodium (Colace) 100 MG capsule Discontinued 100 mg PO TWICE DAILY NEEDED as needed for Constipation 20 0 December 27, 2015 12:00am April 17, 2021 1:46pm niacin 500 mg oral tablet (10 sources) Nicotinic Acid Start: 12-21-2015 End: 04-17-2021 take 1 tablet by mouth once daily Niacin 500 MG tablet Discontinued 500 mg PO DAILY December 21, 2015 12:00am April 17, 2021 1:45pm Golden-3 Fatty Acids-Fish Oil (Fish Oil 1,000 Mg Capsule) 1 EACH capsule (10 sources) Start: 12-21-2015 End: 04-17-2021 Golden-3 Fatty Acids-Fish Oil (Fish Oil 1,000 Mg Capsule) 1 EACH capsule Discontinued 1 EACH PO TWICE A DAY December 21, 2015 8:19am April 17, 2021 1:45pm Start: 12-21-2015 End: 04-17-2021 Golden-3 Fatty Acids-Fish Oil (Fish Oil 1,000 Mg Capsule) 1 EACH capsule Discontinued 1 NMA PO TWICE A DAY December 21, 2015 12:00am April 17, 2021 1:45pm Start: 12-21-2015 End: 04-17-2021 Golden-3 Fatty Acids-Fish Oil (Fish Oil 1,000 Mg [...] needed for Pain Score 6-10/10 56 7 0 February 23, 2022 March 01, 2022 12:00am March 02, 2022 12:04am Other acute postprocedural pain Start: 02-13-2022 End: 02-23-2022 take 5-10 mg by mouth every four hours as needed for pain Oxycodone 5 mg tablet Discontinued 5 - 10 mg PO Q4H as needed for pain 50 6 0 February 21, 2022 February 23, 2022 10:45am Other acute postprocedural pain Other acute postprocedural pain Start: 02-05-2022 End: 02-12-2022 take 5-10 mg by mouth every eight hours as needed for pain Oxycodone 5 mg tablet Discontinued 5 - 10 mg PO Q8H as needed for Pain Score 6-10/10 42 7 0 February 05, 2022 February 11, 2022 12:00am February 12, 2022 12:03am Other acute postprocedural pain Start: 01-24-2022 End: 02-05-2022 take 5-10 mg by mouth every six hours as needed for pain Oxycodone 5 mg tablet Discontinued 5 - 10 mg PO EVERY 6 HOURS as needed for Pain Score 6-10/10 56 7 0 January 29, 2022 February 04, 2022 12:00am February 05, 2022 12:03am Other acute postprocedural pain Start: 01-11-2022 End: 01-20-2022 take 5-10 mg by mouth every four to six hours as needed for pain Oxycodone 5 mg tablet Discontinued 5 - 10 mg PO .COMPLEX as needed for Pain Score 4-10 40 5 0 January 15, 2022 January 19, 2022 12:00am January 20, 2022 12:05am Other acute postprocedural pain Other acute postprocedural pain 5 - 10 mg PO Q 4-6 hours PRN; Start: 01-03-2022 End: 01-20-2022 take 5-15 mg by mouth every four hours as needed for pain Oxycodone 5 mg tablet Discontinued 5 - 15 mg PO Q4H as needed for Pain Score 6-10/10 56 7 0 January 05, 2022 January 11, 2022 12:00am January 12, 2022 12:05am Other acute postprocedural pain promethazine hydrochloride 25 mg oral tablet (10 sources) Phenothiazine Start: 12-27-2015 End: 04-17-2021 take 1 tablet by mouth every four hours as needed for nausea Promethazine 25 MG tablet Discontinued 25 mg PO EVERY 4 HOURS NEEDED as needed for Nausea 10 0 December 27, 2015 12:00am April 17, 2021 1:45pm Problems Active Problems Problem Classification Problem Date Documented Da te Episodic/Chronic Acute cerebrovascular disease (10 sources) Cerebrovascular accident; Translations: [Cerebral infarction, unspecified] 12-19-2021 Chronic Comment on above: NO RESIDUAL Cardiac dysrhythmias (10 sources) Atrial fibrillation; Translations: [Unspecified atrial fibrillation] Onset: 5 12-31-2024 Chronic Disorders of lipid metabolism (1 source) Pure hypercholesterolemia, unspecified; Translations: [Pure hypercholesterolemia, unspecified] Onset: 5 Chronic E Codes: Fall (6 sources) Fall; Translations: [Unspecified fall, initial encounter] 05-09-2023 Episodic Essential hypertension (14 sources) Hypertensive disorder; Translations: [Essential (primary) hypertension] Onset: 5 12-19-2021 Chronic Comment on above: CONTROLLED ON MED Immunizations and screening for infectious disease (10 sources) Contact with and (suspected) exposure to other viral communicable diseases; Translations: [Contact with or suspected exposure to other viral communicable disease] 04-17-2021 Episodic Osteoarthritis (12 sources) Osteoarthritis of right knee joint; Translations: [Unilateral primary osteoarthritis, right knee] Chronic Other aftercare (8 sources) Follow-up status; Translations: [Encounter for other orthopedic aftercare] 03-12-2022 Episodic Other aftercare (2 sources) Encounter for other orthopedic aftercare; Translations: [Unspecified orthopedic aftercare] Episodic Other circulatory disease (7 sources) History of cerebrovascular accident; Translations: [Personal history of transient ischemic attack (TIA), and cerebral infarction without residual deficits] 01-07-2025 Episodic Other circulatory disease (1 source) Personal history of transient ischemic attack (TIA), and cerebral infarction without residual deficits; Translations: [Personal history of transient ischemic attack (TIA), and cerebral infarction without residual deficits] Onset: 5 Episodic Other connective tissue disease (20 sources) History of total knee arthroplasty; Translations: [Presence of unspecified artificial knee joint] 05-09-2023 Chronic Other connective tissue disease (15 sources) Presence of unspecified artificial knee joint; Translations: [Knee joint replacement] Chronic Other connective tissue disease (1 source) Presence of right artificial knee joint; Translations: [Presence of right artificial knee joint] Onset: 5 Chronic Other connective tissue disease (7 sources) Suspected respiratory disease; Translations: [Other symptoms and signs involving the nervous system] 01-07-2025 Episodic Other nervous system disorders (17 sources) Acute postoperative pain; Translations: [Other acute postprocedural pain] 01-03-2022 Episodic Other nervous system disorders (7 sources) Other acute postprocedural pain; Translations: [Other acute postoperative pain] Episodic Other non-traumatic joint disorders (2 sources) Arthropathy of knee joint; Translations: [Ankylosis, unspecified knee] Chronic Other non-traumatic joint disorders (10 sources) Ankylosis, unspecified knee; Translations: [Ankylosis of joint, lower leg] Chronic Other non-traumatic joint disorders (4 sources) Stiffness of right knee, not elsewhere classified; Translations: [Stiffness of joint, not elsewhere classified, lower leg] Episodic Other nutritional; endocrine; and metabolic disorders (7 sources) Body mass index 30+ - obesity; Translations: [Obesity, unspecified] 01-07-2025 Chronic Other screening for suspected conditions (not mental disorders or infectious disease) (2 sources) Abnormal electrocardiogram [ECG] [EKG]; Translations: [Elevated prostate specific antigen [PSA]] Onset: 5 Episodic Other upper respiratory infections (20 sources) Upper respiratory infection; Translations: [Acute upper respiratory infection, unspecified] Episodic Comment on above: viral. strep negativ e. encouraged rest, hydration, OTC for symptom relief. follow up with PCP if worsening or no improvement. Phlebitis; thrombophlebitis and thromboembolism (8 sources) Deep venous thrombosis of lower extremity; Translations: [Acute embolism and thrombosis of unspecified deep veins of right lower extremity] 02-16-2022 Episodic Residual codes; unclassified (10 sources) History of hernia repair; Translations: [Other specified postprocedural states] 04-17-2021 Episodic Superficial injury; contusion (6 sources) Contusion of right knee; Translations: [Contusion of right knee, initial encounter] 05-09-2023 Episodic Unclassified (8 sources) Suspected sleep apnea; Translations: [R29.818 - Other symptoms and signs involving the nervous system] Past or Other Problems Problem Classification Problem Date Documented Da te Episodic/Chronic Genitourinary symptoms and ill-defined conditions (1 source) Other polyuria; Translations: [Other polyuria] Onset: 12-23-2024 Episodic Results Test Name Value Interpretation Reference Range Facility Anion gap in Serum or Plasma Ordered By: Dawson Laguna on 04-08-2025 Anion gap [Moles/Vol] 11 mmol/L 01-07 [facility] BUN/creatinine ratioOrdered By: Dawson Laguna on 04-08-2025 Urea nitrogen/Creatinine [Mass ratio] 13.7 mg/mg 06-14 [facility] Bilirubin, totalOrdered By: Dawson Laguna on 04-08-2025 Bilirubin [Mass/Vol] 1.44 mg/dL High 0.00-1.30 [facility] Calculated very low density lipoprotein (VLDL) cholesterol measurementOrdered By: Dawson Laguna on 04-08-2025 Calculated very low density lipoprotein (VLDL) cholesterol measurement 58 mg/dL High 5-40 [facility] Carbon dioxide, total [Moles /volume] in Central venous bloodOrdered By: Dawson Laguna on 04-08-2025 CO2 [Moles/Vol] 22.2 mmol/L 21.0-32.0 [facility] Chloride assayOrdered By: Ben Laguna on 04-08-2025 Chloride [Moles/Vol] 108 mmol/L 98-108 [facility] Comprehensive Metabolic Prof ilon 04-08-2025 Albumin [Mass/Vol] 4.0 g/dL Normal 3.4-4.8 [facility] Comment on above: Performed By: #### L 502.0250, L500.4050, L500.4100 #### [facility] [address], [place], [id number] Albumin/Globulin [Mass ratio] 1.3 {ratio} Normal 0.9-2.4 [facility] Comment on above: Performed By: #### L 502.0250, L500.4050, L500.4100 #### [facility] [address] [place], [address] ALK PHOS 55 U/L Normal 40-129 [facility] Comment on above: Performed By: #### L 502.0250, [id number], L500.4100 #### [facility] [address] [place], [address] ALT [Catalytic activity/Vol] 15 U/L Normal <=46 [facility] Comment on above: Performed By: #### L 502.0250, L500.4050, L500.4100 #### [facility] [address] [place], [address] AST [Catalytic activity/Vol] 17 U/L Normal <=37 [facility] Comment on above: Performed By: #### L 502.0250, [id number], L500.4100 #### [facility] [address] [place], [address] Bilirubin [Mass/Vol] 1.44 mg/dL High 0.00-1.30 [facility] Comment on above: Performed By: #### L 502.0250, [id number], L500.4100 #### [facility] [address] [place], [address] BUN/CRE 13.7 RATIO Normal 10-20 [facility] Comment on above: Performed By: #### L 502.0250, [id number], L500.4100 #### [facility] [address] [place], [address] Calcium [Mass/Vol] 9.4 mg/dL Normal 7.6-11.0 [facility] Comment on above: Performed By: #### L 502.0250, [id number], L500.4100 #### [facility] [address] [place], [address] Chloride [Moles/Vol] 108 mmol/L Normal 98-108 [facility] Comment on above: Performed By: #### L 502.0250, [id number], L500.4100 #### [facility] [address] [place], [address] CO2 [Moles/Vol] 22.2 mmol/L Normal 21.0-32.0 [facility] Comment on above: Performed By: #### L 502.0250, [id number], L500.4100 #### [facility] [address] [place], [address] Creatinine [Mass/Vol] 0.86 mg/dL Normal 0.70-1.20 [facility] Comment on above: Performed By: #### L 502.0250, [id number], L500.4100 #### [facility] [address] [place], [address] GAP 11 Normal 5-15 [facility] Comment on above: Performed By: #### L 502.0250, [id number], L500.4100 #### [facility] [address] [place], [address] GFR/1.73 sq M.predicted among non-blacks MDRD (S/P/Bld) [Vol rate/Area] 91 mL/min/{1.73_m2} Normal >60 [facility] Comment on above: Result Comment: mL/m in/1.73m2 CKD-EPI Creatinine Equation (2020) Performed By: #### L 502.0250, [id number], L500.4100 #### [facility] [address] [place], [address] Globulin (S) [Mass/Vol] 3.0 g/dL Normal 2.2-4.2 [facility] Comment on above: Performed By: #### L 502.0250, [id number], L500.4100 #### [facility] [address] [place], [address] Glucose [Mass/Vol] 142 mg/dL High 70-99 [facility] Comment on above: Performed By: #### L 502.0250, [id number], L500.4100 #### [facility] [address] [place], [address] Potassium [Moles/Vol] 4.1 mmol/L Normal 3.3-5.1 [facility] Comment on above: Performed By: #### L 502.0250, [id number], L500.4100 #### [facility] [address] [place], [address] Sodium [Moles/Vol] 141 mmol/L Normal 133-145 [facility] Comment on above: Performed By: #### L 502.0250, [id number], L500.4100 #### [facility] [address] [place], [address] T PROT 7.0 g/dL Normal 5.9-8.4 [facility] Comment on above: Performed By: #### L 502.0250, [id number], L500.4100 #### [facility] [address] [place], [address] Urea nitrogen [Mass/Vol] 12 mg/dL Normal 4-19 [facility] Comment on above: Performed By: #### L 502.0250, [id number], L500.4100 #### [facility] [address] [place], [address] Glomerular filtration rate ( GFR) estimation/1.73 sq m using serum, plasma, or whole bOrdered By: Dawson Laguna on 04-08-2025 GFR/1.73 sq M.predicted among non-blacks MDRD (S/P/Bld) [Vol rate/Area] 91 mL/min/{1.73_m2} >60 [facility] Comment on above: mL/min/1.73m2 CKD-EP I Creatinine Equation (2020) LDL calc ser/plasOrdered By: Dawson Laguna on 04-08-2025 Cholesterol in LDL [Mass/Vol] 48 mg/dL [facility] Comment on above: Vxbfugywqm=513-604 m g/dL & Higher Wpxf=310 mg/dL or greaterFriedwald Equation for LDL-C Laboratory - Chemistry and C hemistry - challengeOrdered By: Dawsno Laguna on 04-08-2025 AST [Catalytic activity/Vol] 17 U/L <38 [facility] Lipid Profileon 04-08-2025 CHOL:HDL 4.84 Normal [facility] Comment on above: Performed By: #### L 502.0250, L500.4050, L500.4100 #### [facility] [address] [place], [address] Cholesterol [Mass/Vol] 134 mg/dL Normal <=200 [facility] Comment on above: Result Comment: Chol esterol level, Desirable <200 mg/dL Borderline high cholesterol 200-239 mg/dL High cholesterol >=240 mg/dL Recommendations of the NCEP Adult Treatment Panel for the following risk-cutoff thresholds for the [place] population. Performed By: #### L 502.0250, L500.4050, L500.4100 #### [facility] [address] [place], [address] Cholesterol in HDL [Mass/Vol] 28 mg/dL Low [facility] Comment on above: Result Comment: Robyn onal Cholesterol Education Program (NCEP) guidelines: <40 mg/dL: Low HDL-cholesterol (major risk factor for CHD) >= 60 mg/dL: High HDL-cholesterol (negative risk factor for CHD) HDL-cholesterol is affected by a number of factors, e.g. smoking, exercise, hormones, sex and age. Performed By: #### L 502.0250, L500.4050, L500.4100 #### [facility] [address] [place], [address] Cholesterol in LDL [Mass/Vol] 48 mg/dL Normal [facility] Comment on above: Result Comment: Bord ztnibb=057-039 mg/dL Higher Vaih=458 mg/dL or greater Friedwald Equation for LDL-C Performed By: #### L 502.0250, L500.4050, L500.4100 #### [facility] [address] [place], [address] Cholesterol in VLDL [Mass/Vol] 58 mg/dL High 5-40 [facility] Comment on above: Performed By: #### L 502.0250, L500.4050, L500.4100 #### [facility] [address] [place], [address] Triglyceride [Mass/Vol] 292 mg/dL High [facility] Comment on above: Result Comment: The drugs N-Acetylcysteine and Metamizole may falsely depress this assay. Normal range: <150 mg/dL Borderline High: 150-199 mg/dL High: 200-499 mg/dL Very High: >500 mg/dL Performed By: #### L 502.0250, L500.4050, L500.4100 #### [facility] [address] [place], [address] Microalb:Creat Ratio,Random URon 04-08-2025 Creatinine [Mass/Vol] 197.00 mg/dL Normal 39.00-259.00 [facility] Comment on above: Performed By: #### L 502.0250, L500.4050, L500.4100 #### [facility] [address] [place], [address] MALB:CREAT 7.2 mg/g CRE Normal <30 mg/g CRE [facility] Comment on above: Performed By: #### L 502.0250, L500.4050, L500.4100 #### [facility] [address], [place], [address] MICROALBUMIN,UR 14.2 mg/L Normal <20 mg/L [facility] Comment on above: Performed By: #### L 502.0250, L500.8590, L500.1725 #### [facility] [address], [place], [address] Potassium measurement (mass/ volume)Ordered By: Dawson Laguna on 04-08-2025 Potassium (Unsp spec) [Mass/Vol] 4.1 mmol/L 3.3-5.1 [facility] Random urine creatinine chiquis urement (mass/volume)Ordered By: Dawson Laguna on 04-08-2025 Creatinine Unsp time (U) [Mass/Vol] 197.00 mg/dL 39.00-259.00 [facility] Screening total cholesterol/ high density lipoprotein (HDL) cholesterol ratioOrdered By: Dawson Laguna on 04-08-2025 Cholesterol.total/Zo sterol in HDL [Mass ratio] 4.84 {ratio} [facility] Serum creatinine measurement (mass/volume)Ordered By: Dawson Laguna on 04-08-2025 Creatinine [Mass/Vol] 0.86 mg/dL 0.70-1.20 [facility] Serum globulin measurementOr dered By: Dawson Laguna on 04-08-2025 Globulin (S) [Mass/Vol] 3.0 g/dL 2.2-4.2 [facility] Serum glucose measurement (m ass/volume)Ordered By: Dawson Laguna on 04-08-2025 Glucose [Mass/Vol] 142 mg/dL High 70-99 [facility] Serum or plasma alanine gaming otransferase (ALT) measurementOrdered By: Dawson Laguna on 04-08-2025 ALT [Catalytic activity/Vol] 15 U/L <47 [facility] [facility] Serum or plasma albumin chiquis urement (mass/volume)Ordered By: Dawson Laguna on 04-08-2025 Albumin [Mass/Vol] 4.0 g/dL 3.4-4.8 [facility] Serum or plasma albumin/glob ulin mass ratioOrdered By: Dawson Laguna on 04-08-2025 Albumin/Globulin [Mass ratio] 1.3 {ratio} 0.9-2.4 [facility] Serum or plasma alkaline kuldip sphatase measurementOrdered By: Dawson Laguna on 04-08-2025 ALP [Catalytic activity/Vol] 55 U/L 40-129 [facility] Serum or plasma calcium chiquis urement (mass/volume)Ordered By: Dawson Laguna on 04-08-2025 Calcium [Mass/Vol] 9.4 mg/dL 7.6-11.0 [facility] Serum or plasma cholesterol in HDL measurement (mass/volume)Ordered By: Dawson Laguna on 04-08-2025 Cholesterol in HDL [Mass/Vol] 28 mg/dL Low >40 [facility] Comment on above: National Cholesterol Education Program (NCEP) guidelines:<40 mg/dL: Low HDL-cholesterol (major risk factor for CHD)>= 60 mg/dL: High HDL-cholesterol (negative risk factor for CHD)HDL-cholesterol is affected by a number of factors, e.g. smoking, exercise, hormones, sex and age. Serum or plasma cholesterol measurement (mass/volume)Ordered By: Dawson Laguna on 04-08-2025 Cholesterol [Mass/Vol] 134 mg/dL <201 [facility] Comment on above: Cholesterol level, D esirable <200 mg/dLBorderline high cholesterol 200-239 mg/dLHigh cholesterol >=240 mg/dLRecommendations of the NCEP Adult Treatment Panel for the following risk-cutoff thresholds for the [place] population. Serum or plasma urea nitroge n measurement (mass/volume)Ordered By: Dawson Laguna on 04-08-2025 Urea nitrogen [Mass/Vol] 12 mg/dL 4-19 [facility] Sodium levelOrdered By: Dawson Laguna on 04-08-2025 Sodium [Moles/Vol] 141 mmol/L 133-145 [facility] Total proteinOrdered By: Barb Laguna on 04-08-2025 Protein [Mass/Vol] 7.0 g/dL 5.9-8.4 [facility] Triglycerides measurementOrd ered By: Dawson Laguna on 04-08-2025 Triglyceride [Mass/Vol] 292 mg/dL High <199 [facility] Comment on above: The drugs N-Acetylcy steine and Metamizole may falsely depress this assay. Normal range: <150 mg/dLBorderline High: 150-199 mg/dLHigh: 200-499 mg/dLVery High: >500 mg/dL Urine albumin measurement [facility] detection limit of 20 mg/L or less (mass/volume)Ordered By: Dawson Laguna on 04-08-2025 Albumin DL <= 20 mg/L (U) [Mass/Vol] 14.2 mg/L <20 mg/L [facility] Cardiovascular stress test r eportOrdered By: Amy Reid on 02-18-2025 Study report [facility] Services [address] [place] [address] MR#: [id number] Acct: [id number] Name: HANNAH LEBRON Rep #: [id number] : 1950 74 From: Amy Reid MD Primary Care: Dr. Dawson Laguna MD Status : REG CLI Referring Dr: Amy Reid MD Sex: M C Stress Test Report Date: 02/18/2025 Procedure: Pharmacologic stress nuclear imaging study Indications: Arrhythmia Consent: Per the patient Procedure: The patient underwent pharmacologic (Regadenoson 0.4mg ) evaluation with a peak heart rate of 110 beats per minute (74%predicted maximal heart rate) and a peak blood pressure of 142/104 mmHg. The baseline ECG demonstrated atrial fibrillation. The peak pharmacologic ECG did not show any diagnostic ischemic changes. Baseline atrial fibrillation. There was no complaint of chest discomfort during pharmacologic infusion or recovery. The patient was injected with 14.3 millicuries of technetium 99m Cardiolite and subsequently rest SPECT Cardiolite nuclear imaging was obtained in the horizontal long, vertical long, and short axis views. The patient underwent pharmacologic (Regadenoson) evaluation. The patient was injected with 44.8 millicuries of technetium 99m Cardiolite and subsequently stress SPECT Cardiolite nuclear imaging was obtained in the horizontal long, vertical long, and short axis views. A gated Cardiolite study at peak stress was obtained. The examination was stopped secondary to completion of protocol. Rest and stress SPECT Cardiolite nuclear imaging status post realignment, normalization, and attenuation correction demonstrate mildly reduced perfusion of the basal inferior wall post pharmacological stress. There is end systolic thickening and brightening. The gated Cardiolite study demonstrates myocardial thickening and inward wall motion. The reported LVEF is 47%. Impression: 1. Pharmacologic (Regadenoson) evaluation 2. Peak pharmacologic ECG with no diagnostic ischemic changes. 3. Baseline atrial fibrillation. 5. Mildly reduced perfusion of the basal inferior wall post pharmacological stress, suggestive of mild ischemia. 6. The gated Cardiolite study reports an LVEF of 47%. This note was generated with [employer]bel[employer] software. It may contain incorrectwords, spelling, and punctuation that were not noted in checking the note beforesigning. 02/18/25 1340 Date _ Amy Reid MD CC: Dr. Amy Reid MD; Dr. Dawson Laguna MD ~ Date Dictated: 02/18/25 1339 Date Transcribed: 02/18/251338 Boarding House Manager: JUSTIN Gong [facility] Work Phone: Echo Completeon 02-18-2025 Echo Complete [facility] Cardiovascular Services [address] [place] [address] Echo Complete 02/18/25 0932 MR#: [id number] Acct: [id number] Name: HANNAH LEBRON Rep #: [id number] : 1950 74 From: Amy Reid MD Attending Dr: Dr. Amy Reid MD Status: [facility] CLI Ordering Dr: Amy Reid MD Date: 02/18/25 Location: [facility] Sex: M C Admitted: Reason For Study Reason For Study: TIA/CVA Procedure This was a 2D Doppler, Color Flow transthoracic echocardiogram. Exam performed in department. Left Ventricle Normal size and thickness. Borderline LV systolic function. Estimated LVEF 45%. Stage I diastolic dysfunction. Right Ventricle Normal right ventricle. Atria There is severe biatrial dilatation. Bubble contrast study is negative for PFO/ASD. Mitral Valve Mild (1+) mitral valve insufficiency. Tricuspid Valve Mild to moderate (1-2+) tricuspid valve insufficiency. Normal pulmonary artery pressure. Aortic Valve Aortic sclerosis, no stenosis. Pulmonic Valve Mild (1+) pulmonic valve insufficiency. Great Vessels Mildly dilated aortic root. Pericardium/Pleural No pericardial effusion. Medication 22 gauge I.V. with prn adaptor inserted into left arm. Performed a rapid injection of agitated mix of 9 cc saline and 1cc air to assess for atrial septal defect. MMode/2D Measurements Calculations LVIDd: 4.7 cm IVSd: 1.0 cm Ao root diam: 4.0 cm LVIDs: 3.8 cm LVPWd: 1.0 cm LA dimension: 4.7 cm RVDd: 4.2 cm FS: 19.7 % LAV(MOD-bp): 99.4 ml LVAd ap4: 30.8 cm2 SV(MOD-sp4): 41.6 ml LAV(MOD-bp) Indexed: 45.3 ml/m2 LVLd ap4: 7.5 cm SI(MOD-sp4): 19.0 ml/m2 LAV(MOD-sp2): 90.5 ml EDV(MOD-sp4): 102.7 ml LAV(MOD-sp4): 94.5 ml EDV(sp4-el): 107.5 ml LVAs ap4: 22.4 cm2 LVLs ap4: 7.1 cm ESV(MOD-sp4): 61.1 ml ESV(sp4-el): 60.4 ml EF(MOD-sp4): 40.5 % EF(sp4-el): 43.8 % SV(sp4-el): 47.1 ml LA A4 area: 28.3 cm2 LA dimension(2D): 4.6 cm RA A4 area: 26.1 cm2 TAPSE: 1.5 cm Doppler Measurements Calculations MV E max nilam: 100.7 cm/sec MV V2 max: 102.6 cm/sec Ao V2 max: 123.0 cm/sec MV max P.2 mmHg Ao max P.1 mmHg MV V2 mean: 62.2 cm/sec Ao V2 mean: 90.1 cm/sec MV mean P.8 mmHg Ao mean P.7 mmHg MV V2 VTI: 22.1 cm Ao V2 VTI: 25.0 cm LV V1 max: 75.8 cm/sec MR max nilam: 557.4 cm/sec PA V2 max: 55.4 cm/sec LV V1 max P.3 mmHg MR max P.3 mmHg MR mean nilam: 425.1 cm/sec MR mean P.1 mmHg MR VTI: 209.6 cm TR max nilam: 257.6 cm/sec TR max P.5 mmHg ECHO/Echo Complete Interpretation Summary Borderline LV systolic function. Estimated LVEF 45%. Stage I diastolic dysfunction. There is severe biatrial dilatation. Bubble contrast study is negative for PFO/ASD. Mild (1+) mitral valve insufficiency. Mild to moderate (1-2+) tricuspid valve insufficiency. Aortic sclerosis, no stenosis. Mild (1+) pulmonic valve insufficiency. Mildly dilated aortic root. Ordering Physician: Amy Reid Referring Physician: Amy Reid Performed By: Lui Yates RCS 02/18/25 1448 Date Amy Reid MD CC: Dr. Amy Reid MD; Dr. Dawson Laguna MD Date Dictated: 02/18/2532 Date Transcribed: 02/18/251447 Boarding House Manager: Signed Normal [facility] Echocardiogram study reportO rdered By: Amy Reid on 02-18-2025 Study report [facility] Cardiovascular Services [address] [place] [address] Echo Complete 02/18/25931 MR#: [id number] Acct: [id number] Name: HANNAH LEBRON Rep #:[id number] : 1950 74 From: Amy Reid MD Attending Dr: Dr. Amy Reid MD Status: REG CLI Ordering Dr: Amy Reid MD Date: Location: [facility] Sex: M C Admitted: Reason For Study Reason For Study: TIA/CVA Procedure This was a 2D Doppler, Color Flow transthoracic echocardiogram. Exam performed in department. Left Ventricle Normal size and thickness. Borderline LV systolic function. Estimated LVEF 45%. Stage I diastolic dysfunction. Right Ventricle Normal right ventricle. Atria There is severe biatrial dilatation. Bubble contrast study is negative for PFO/ASD. Mitral Valve Mild (1+) mitral valve insufficiency. Tricuspid Valve Mild to moderate (1-2+) tricuspid valve insufficiency. Normal pulmonary artery pressure. Aortic Valve Aortic sclerosis, no stenosis. Pulmonic Valve Mild (1+) pulmonic valve insufficiency. Great Vessels Mildly dilated aortic root. Pericardium/Pleural No pericardial effusion. Medication 22 gauge I.V. with prn adaptor inserted into left arm. Performed a rapid injection of agitated mix of 9 cc saline and 1cc air to assess for atrial septal defect. MMode/2D Measurements & Calculations LVIDd: 4.7 cm IVSd: 1.0 cm Ao root diam: 4.0 cm LVIDs: 3.8 cm LVPWd: 1.0 cm LA dimension: 4.7 cm RVDd: 4.2 cm FS: 19.7 % LAV(MOD-bp): 99.4 ml LVAd ap4: 30.8 cm2 SV(MOD-sp4): 41.6 ml LAV(MOD-bp) Indexed: 45.3 ml/m2 LVLd ap4: 7.5 cm SI(MOD-sp4): 19.0 ml/m2 LAV(MOD-sp2): 90.5 ml EDV(MOD-sp4): 102.7 ml LAV(MOD-sp4): 94.5 ml EDV(sp4-el): 107.5 ml LVAs ap4: 22.4 cm2 LVLs ap4: 7.1 cm ESV(MOD-sp4): 61.1 ml ESV(sp4-el): 60.4 ml EF(MOD-sp4): 40.5 % EF(sp4-el): 43.8 % SV(sp4-el): 47.1 ml LA A4 area: 28.3 cm2 LA dimension(2D): 4.6 cm RA A4 area: 26.1 cm2 TAPSE: 1.5 cm Doppler Measurements & Calculations MV E max nilam: 100.7 cm/sec MV V2 max: 102.6 cm/sec Ao V2 max: 123.0 cm/sec MV max P.2 mmHg Ao max P.1 mmHg MV V2 mean: 62.2 cm/sec Ao V2 mean: 90.1 cm/sec MV mean P.8 mmHg Ao mean P.7 mmHg MV V2 VTI: 22.1 cm Ao V2 VTI: 25.0 cm LV V1 max: 75.8 cm/sec MR max nilam: 557.4 cm/sec PA V2 max: 55.4 cm/sec LV V1 max P.3 mmHg MR max P.3 mmHg MR mean nilam: 425.1 cm/sec MR mean P.1 mmHg MR VTI: 209.6 cm TR max nilam: 257.6 cm/sec TR max P.5 mmHg ECHO/Echo Complete Interpretation Summary Borderline LV systolic function. Estimated LVEF 45%. Stage I diastolic dysfunction. There is severe biatrial dilatation. Bubble contrast study is negative for PFO/ASD. Mild (1+) mitral valve insufficiency. Mild to moderate (1-2+) tricuspid valve insufficiency. Aortic sclerosis, no stenosis. Mild (1+) pulmonic valve insufficiency. Mildly dilated aortic root. Ordering Physician: Amy Reid Referring Physician: Amy Reid Performed By: Lui Yates RCS 02/18/25 1448 Date _ Amy Reid MD CC: Dr. Amy Reid MD; Dr. Dawson Laguna MD ~ Date Dictated: 02/18/2532 Date Transcribed: 02/18/25 1448 Boarding House Manager: Beltran [facility] Work Phone: Stress Reporton 02-18-2025 Stress Report [facility] Cardiovascular [place] [address] [address] MR#: [id number] Acct: [id number] Name: HANNAH LEBRON Rep #: [id number] : 1950 74 From: Amy Reid MD Primary Care: Dr. Dawson Laguna MD Status: REG CLI Referring Dr: Amy Reid MD Sex: M C Stress Test Report Date: 02/18/2025 Procedure: Pharmacologic stress nuclear imaging study Indications: Arrhythmia Consent: Per the patient Procedure: The patient underwent pharmacologic (Regadenoson 0.4mg ) evaluation with a peak heart rate of 110 beats per minute (74%predicted maximal heart rate) and a peak blood pressure of 142/104 mmHg. The baseline ECG demonstrated atrial fibrillation. The peak pharmacologic ECG did not show any diagnostic ischemic changes. Baseline atrial fibrillation. There was no complaint of chest discomfort during pharmacologic infusion or recovery. The patient was injected with 14.3 millicuries of technetium 99m Cardiolite and subsequently rest SPECT Cardiolite nuclear imaging was obtained in the horizontal long, vertical long, and short axis views. The patient underwent pharmacologic (Regadenoson) evaluation. The patient was injected with 44.8 millicuries of technetium 99m Cardiolite and subsequently stress SPECT Cardiolite nuclear imaging was obtained in the horizontal long, vertical long, and short axis views. A gated Cardiolite study at peak stress was obtained. The examination was stopped secondary to completion of protocol. Rest and stress SPECT Cardiolite nuclear imaging status post realignment, normalization, and attenuation correction demonstrate mildly reduced perfusion of the basal inferior wall post pharmacological stress. There is end systolic thickening and brightening. The gated Cardiolite study demonstrates myocardial thickening and inward wall motion. The reported LVEF is 47%. Impression: 1. Pharmacologic (Regadenoson) evaluation 2. Peak pharmacologic ECG with no diagnostic ischemic changes. 3. Baseline atrial fibrillation. 5. Mildly reduced perfusion of the basal inferior wall post pharmacological stress, suggestive of mild ischemia. 6. The gated Cardiolite study reports an LVEF of 47%. This note was generated with [employer] software. It may contain incorrect words, spelling, and punctuation that were not noted in checking the note before signing. 02/18/25 1340 Date Amy Reid MD CC: Dr. Amy Reid MD; Dr. Dawson Laguna MD Date Dictated: 02/18/251338 Date Transcribed: 02/18/251338 Boarding House Manager: JUSTIN Signed Normal [facility] Anion gap in Serum or Plasma Ordered By: Amy Reid on 01-07-2025 Anion gap [Moles/Vol] 9 mmol/L - [facility] BUN/creatinine ratioOrdered By: Amy Reid on 01-07-2025 Urea nitrogen/Creatinine [Mass ratio] 12.6 mg/mg 10- [facility] Bilirubin, totalOrdered By: Amy Reid on 01-07-2025 Bilirubin [Mass/Vol] 1.98 mg/dL High 0.00-1.30 [facility] Carbon dioxide, total [Moles /volume] in Central venous bloodOrdered By: Amy Reid on 01-07-2025 CO2 [Moles/Vol] 25.0 mmol/L 21.0-32.0 [facility] Cardiology Visit Reporton Cardiology Visit Report [facility] [place] [address] OFFICE VISIT Date of Service: 01/07/25 MR#: [id number] Acct: [id number] Name: HANNAH LEBRON Rep #: [id number] : 1950 Provider: Dr. Amy Reid MD Age/Sex: 74/M Location: [facility] Status: Signed HPI HPI History of Present [...] Source NIBP Intake Visit Reasons: Atrial fibrillation Public Health Director Required: No Accompanied by: Is patient in [...] (residual pain in L-Chest; s/p 2wk fall) [facility] Medical History Alcohol use Arthritis Atrial fibrillation [...] Status: Chron (more content not included)... Normal [facility] Chloride assayOrdered By: Justin Reid on 01-07-2025 Chloride [Moles/Vol] 105 mmol/L 98-108 [facility] Comprehensive Metabolic Prof ilon 01-07-2025 Albumin [Mass/Vol] 4.0 g/dL Normal 3.4-4.8 [facility] Comment on above: Performed By: #### L 500.4050, L501.20 #### [facility] [address] [place], [address] Albumin/Globulin [Mass ratio] 1.2 {ratio} Normal 0.9-2.4 [facility] Comment on above: Performed By: #### L 500.4050, L501.9520 #### [facility] [address] [place], [address] ALK PHOS 62 U/L Normal 40-129 [facility] Comment on above: Performed By: #### L 500.4050, L501.9520 #### [facility] [address] [place], [address] ALT [Catalytic activity/Vol] 17 U/L Normal <=46 [facility] Comment on above: Performed By: #### L 500.4050, L501.9520 #### [facility] [address] [place], [address] AST [Catalytic activity/Vol] 18 U/L Normal <=37 [facility] Comment on above: Performed By: #### L 500.4050, L501.9520 #### [facility] [address] [place], [address] Bilirubin [Mass/Vol] 1.98 mg/dL High 0.00-1.30 [facility] Comment on above: Performed By: #### L 500.4050, L501.9520 #### [facility] [address] [place], [address] BUN/CRE 12.6 RATIO Normal 10-20 [facility] Comment on above: Performed By: #### L 500.4050, L501.9520 #### [facility] [address] [place], [address] Calcium [Mass/Vol] 9.1 mg/dL Normal 7.6-11.0 [facility] Comment on above: Performed By: #### L 500.4050, L501.9520 #### [facility] [address] [place], [address] Chloride [Moles/Vol] 105 mmol/L Normal 98-108 [facility] Comment on above: Performed By: #### L 500.4050, L501.9520 #### [facility] [address] [place], [address] CO2 [Moles/Vol] 25.0 mmol/L Normal 21.0-32.0 [facility] Comment on above: Performed By: #### L 500.4050, L501.9520 #### [facility] [address] [place], [address] Creatinine [Mass/Vol] 0.80 mg/dL Normal 0.70-1.20 [facility] Comment on above: Performed By: #### L 500.4050, L501.9520 #### [facility] [address] [place], [address] GAP 9 Normal 5-15 [facility] Comment on above: Performed By: #### L 500.4050, L501.9520 #### [facility] [address] [place], [address] GFR/1.73 sq M.predicted among non-blacks MDRD (S/P/Bld) [Vol rate/Area] 93 mL/min/{1.73_m2} Normal >60 [facility] Comment on above: Result Comment: mL/m in/1.73m2 CKD-EPI Creatinine Equation (2020) Performed By: #### L 500.4050, L501.9520 #### [facility] [address] [place], [address] Globulin (S) [Mass/Vol] 3.2 g/dL Normal 2.2-4.2 [facility] Comment on above: Performed By: #### L 500.4050, L501.9520 #### [facility] [address] [place], [address] Glucose [Mass/Vol] 137 mg/dL High 70-99 [facility] Comment on above: Performed By: #### L 500.4050, L501.9520 #### [facility] [address] [place], [address] Potassium [Moles/Vol] 4.2 mmol/L Normal 3.3-5.1 [facility] Comment on above: Performed By: #### L 500.4050, L501.9520 #### [facility] [address] [place], [address] Sodium [Moles/Vol] 139 mmol/L Normal 133-145 [facility] Comment on above: Performed By: #### L 500.4050, L501.9520 #### [facility] [address] [place], [address] T PROT 7.2 g/dL Normal 5.9-8.4 [facility] Comment on above: Performed By: #### L 500.4050, L501.9520 #### [facility] [address] [place], [address] Urea nitrogen [Mass/Vol] 10 mg/dL Normal 4-19 [facility] Comment on above: Performed By: #### L 500.4050, L501.9520 #### [facility] [address] [place], [address] Glomerular filtration rate ( GFR) estimation/1.73 sq m using serum, plasma, or whole bOrdered By: Amy Reid on 01-07-2025 GFR/1.73 sq M.predicted among non-blacks MDRD (S/P/Bld) [Vol rate/Area] 93 mL/min/{1.73_m2} >60 [facility] Comment on above: mL/min/1.73m2 CKD-EP I Creatinine Equation (2020) Laboratory - Chemistry and C hemistry - challengeOrdered By: Amy Reid on 01-07-2025 AST [Catalytic activity/Vol] 18 U/L <38 [facility] Potassium measurement (mass/ volume)Ordered By: Amyelma Reid on 01-07-2025 Potassium (Unsp spec) [Mass/Vol] 4.2 mmol/L 3.3-5.1 [facility] Serum creatinine measurement (mass/volume)Ordered By: Amy Reid on 01-07-2025 Creatinine [Mass/Vol] 0.80 mg/dL 0.70-1.20 [facility] Serum globulin measurementOr dered By: Amy Reid on 01-07-2025 Globulin (S) [Mass/Vol] 3.2 g/dL 2.2-4.2 [facility] Serum glucose measurement (m ass/volume)Ordered By: Amy Reid on 01-07-2025 Glucose [Mass/Vol] 137 mg/dL High 70-99 [facility] Serum or plasma alanine gaming otransferase (ALT) measurementOrdered By: Amy Reid on 01-07-2025 ALT [Catalytic activity/Vol] 17 U/L <47 [facility] Serum or plasma albumin chiquis urement (mass/volume)Ordered By: Amy Reid on 01-07-2025 Albumin [Mass/Vol] 4.0 g/dL 3.4-4.8 [facility] Serum or plasma albumin/glob ulin mass ratioOrdered By: Amyelma Reid 01-07-2025 Albumin/Globulin [Mass ratio] 1.2 {ratio} 0.9-2.4 [facility] Serum or plasma alkaline kuldip sphatase measurementOrdered By: Amy Reid 01-07-2025 ALP [Catalytic activity/Vol] 62 U/L 40-129 [facility] Serum or plasma calcium chiquis urement (mass/volume)Ordered By: Amy Reid on 01-07-2025 Calcium [Mass/Vol] 9.1 mg/dL 7.6-11.0 [facility] Serum or plasma urea nitroge n measurement (mass/volume)Ordered By: Amy Reid on 01-07-2025 Urea nitrogen [Mass/Vol] 10 mg/dL 4-19 [facility] Sodium levelOrdered By: Hakan Reid on 01-07-2025 Sodium [Moles/Vol] 139 mmol/L 133-145 [facility] TSH DL <= 0.005 mIU/L QnOrde red By: Amy Reid on 01-07-2025 TSH Qn 1.030 uIU/mL 0.300-4.200 [facility] Thyroid Stim Hormone (TSH)on 01-07-2025 TSH 1.030 uIU/mL Normal 0.300-4.200 [facility] Comment on above: Performed By: #### L 500.4050, L501.9520 #### [facility] [address], [place], [address] Total proteinOrdered By: Bree Reid on 01-07-2025 Protein [Mass/Vol] 7.2 g/dL 5.9-8.4 [facility] Anion gap in Serum or Plasma Ordered By: Dawson Laguna on 12-17-2024 Anion gap [Moles/Vol] 10 mmol/L 01-07 [facility] BUN/creatinine ratioOrdered By: Dawson Laguna on 12-17-2024 Urea nitrogen/Creatinine [Mass ratio] 12.1 mg/mg 06-14 [facility] Basic Metabolic Profile (BMP )on 12-17-2024 BUN/CRE 12.1 RATIO Normal 06-14 [facility] Comment on above: Performed By: #### L 500.2500, L501.9985 #### [facility] [address], [place], [id number] Calcium [Mass/Vol] 9.0 mg/dL Normal 7.6-11.0 [facility] Comment on above: Performed By: #### L 500.2500, L501.9985 #### [facility] [address] [place], [address] Chloride [Moles/Vol] 105 mmol/L Normal 98-108 [facility] Comment on above: Performed By: #### L 500.2500, L501.9985 #### [facility] [address] [place], [address] CO2 [Moles/Vol] 23.6 mmol/L Normal 21.0-32.0 [facility] Comment on above: Performed By: #### L 500.2500, L501.9985 #### [facility] [address] [place], [address] Creatinine [Mass/Vol] 0.78 mg/dL Normal 0.70-1.20 [facility] Comment on above: Performed By: #### L 500.2500, L501.9985 #### [facility] [address] [place], [address] GAP 10 Normal 5-15 [facility] Comment on above: Performed By: #### L 500.2500, L501.9985 #### [facility] [address] [place], [address] GFR/1.73 sq M.predicted among non-blacks MDRD (S/P/Bld) [Vol rate/Area] 94 mL/min/{1.73_m2} Normal >60 [facility] Comment on above: Result Comment: mL/m in/1.73m2 CKD-EPI Creatinine Equation (2020) Performed By: #### L 500.2500, L501.9985 #### [facility] [address] [place], [address] Glucose [Mass/Vol] 113 mg/dL High 70-99 [facility] Comment on above: Performed By: #### L 500.2500, L501.9985 #### [facility] [address] [place], [address] Potassium [Moles/Vol] 4.0 mmol/L Normal 3.3-5.1 [facility] Comment on above: Performed By: #### L 500.2500, L501.9985 #### [facility] [address] [place], [address] Sodium [Moles/Vol] 139 mmol/L Normal 133-145 [facility] Comment on above: Performed By: #### L 500.2500, L501.9985 #### [facility] [address] [place], [address] Urea nitrogen [Mass/Vol] 9 mg/dL Normal 4-19 [facility] Comment on above: Performed By: #### L 500.2500, L501.9985 #### [facility] [address] [place], [address] Carbon dioxide, total [Moles /volume] in Central venous bloodOrdered By: Dawson Laguna on 12-17-2024 CO2 [Moles/Vol] 23.6 mmol/L 21.0-32.0 [facility] Chloride assayOrdered By: Ben Laguna on 12-17-2024 Chloride [Moles/Vol] 105 mmol/L 98-108 [facility] Glomerular filtration rate ( GFR) estimation/1.73 sq m using serum, plasma, or whole bOrdered By: Dawson Laguna on 12-17-2024 GFR/1.73 sq M.predicted among non-blacks MDRD (S/P/Bld) [Vol rate/Area] 94 mL/min/{1.73_m2} >60 [facility] Comment on above: mL/min/1.73m2 CKD-EP I Creatinine Equation (2020) Hemoglobin A1con 12-17-2024 HbA1c (Bld) [Mass fraction] 6.4 % High <=5.6 [facility] Comment on above: Result Comment: Norm al < 5.7 % Prediabetic 5.7 - 6.4 % Diabetic >or= 6.5 % Please note range changes. Performed By: #### L 500.2500, L501.9985 ####[facility] [address], [place], [id number] Hemoglobin A1c percentageOrd ered By: Dawson Laguna on 12-17-2024 HbA1c (Bld) [Mass fraction] 6.4 % High <5.7 [facility] Comment on above: Normal < 5.7 % Predi abetic 5.7 - 6.4 % Diabetic >or= 6.5 % Please note range changes. Potassium measurement (mass/ volume)Ordered By: Dawson Laguna on 12-17-2024 Potassium (Unsp spec) [Mass/Vol] 4.0 mmol/L 3.3-5.1 [facility] Serum creatinine measurement (mass/volume)Ordered By: Dawson Laguna on 12-17-2024 Creatinine [Mass/Vol] 0.78 mg/dL 0.70-1.20 [facility] Serum glucose measurement (m ass/volume)Ordered By: Dawson Laguna on 12-17-2024 Glucose [Mass/Vol] 113 mg/dL High 70-99 [facility] Serum or plasma calcium chiquis urement (mass/volume)Ordered By: Dawson Laguna on 12-17-2024 Calcium [Mass/Vol] 9.0 mg/dL 7.6-11.0 [facility] Serum or plasma urea nitroge n measurement (mass/volume)Ordered By: Dawson Laguna on 12-17-2024 Urea nitrogen [Mass/Vol] 9 mg/dL 4-19 [facility] Sodium levelOrdered By: Dawson Laguna on 12-17-2024 Sodium [Moles/Vol] 139 mmol/L 133-145 [facility] Knee 3 Viewson 10-28-2024 Knee 3 Views [facility] [address] [place], [place] [address] Knee 3 Views MR#: [id number] Acct: [id number] Name: HANNAH LEBRON Rep #: [id number] : 1950 M 74 From: Herber horvath MD PCP: Dr. Dawson Laguna MD Status: DEP AMB Study: Knee 3 Views Date of Exam: 10/28/24 Exam# [id number] Ordering Dr: Jim Whelan DO PROCEDURE: KNEE [...] 3 Views IMPRESSION: Stable examination. Reading Location: [id number] CC: Dr. Jim Whelan DO; Dr. Dawson Laguna MD Boarding House Manager: Signed Normal [facility] Orthopedic Visit Reporton Orthopedic Visit Report [facility] [address] [place] [address] OFFICE VISIT Date of Service: 10/28/24 MR#: [id number] Acct: [id number] Name: HANNAH LEBRON Rep #: [id number] : 1950 Provider: Dr. Jim chaudhari DO Age/Sex: 74/M Location: [facility] Status: Signed Intake Vital Signs 02/13/22 12:07 [...] 50 mg PO PRN 11/28/22 10/28/24 His rafael Have you fallen in the past year?: [...] decisions made by me, Dr. Jim Whelan, DO 10/28/24 0754. Part of today???s visit was [...] more phys (more content not included)... Normal [facility] BUN/creatinine ratioOrdered By: Dawson Laguna on 10-21-2024 Urea nitrogen/Creatinine [Mass ratio] 11.1 mg/mg 10-20 [facility] Bilirubin, totalOrdered By: Dawson Laguna on 10-21-2024 Bilirubin [Mass/Vol] 1.19 mg/dL 0.00-1.30 [facility] Calculated very low density lipoprotein (VLDL) cholesterol measurementOrdered By: Dawson Laguna on 10-21-2024 Calculated very low density lipoprotein (VLDL) cholesterol measurement 67 mg/dL High 5-40 [facility] VLDL Cholesterol 67 mg/dL High 5-40 [facility] Carbon dioxide measurementOr dered By: Dawson Laguna on 10-21-2024 CO2 [Moles/Vol] 23.8 mmol/L 22.0-29.0 [facility] Chloride measurementOrdered By: Dawson Laguna on 10-21-2024 Chloride [Moles/Vol] 105 mmol/L 96-108 [facility] Comprehensive Metabolic Prof ilon 10-21-2024 Albumin [Mass/Vol] 4.0 g/dL Normal 3.4-4.8 [facility] Comment on above: Performed By: #### L 500.4050, L500.4100, L501.9910 ####[facility] [address] [place], [address] Albumin/Globulin [Mass ratio] 1.2 {ratio} Normal 0.9-2.4 [facility] Comment on above: Performed By: #### L 500.4050, L500.4100, L501.9910 ####[facility] [address] [place], [address] ALK PHOS 58 U/L Normal 40-129 [facility] Comment on above: Performed By: #### L 500.4050, L500.4100, L501.9910 ####[facility] [address] [place], [address] ALT [Catalytic activity/Vol] 14 U/L Normal <=46 [facility] Comment on above: Performed By: #### L 500.4050, L500.4100, L501.9910 ####[facility] [address] [place], [address] Anion gap [Moles/Vol] 10 mmol/L Normal 5-15 [facility] Comment on above: Performed By: #### L 500.4050, L500.4100, L501.9910 ####[facility] [address] [place], [address] AST [Catalytic activity/Vol] 21 U/L Normal <=37 [facility] Comment on above: Performed By: #### L 500.4050, L500.4100, L501.9910 ####[facility] [address] [place], [address] Bilirubin [Mass/Vol] 1.19 mg/dL Normal 0.00-1.30 [facility] Comment on above: Performed By: #### L 500.4050, L500.4100, L501.9910 ####[facility] [address] [place], [address] BUN/CRE 11.1 RATIO Normal 10-20 [facility] Comment on above: Performed By: #### L 500.4050, L500.4100, L501.9910 ####[facility] [address] [place], [address] Calcium [Mass/Vol] 9.2 mg/dL Normal 7.6-11.0 [facility] Comment on above: Performed By: #### L 500.4050, L500.4100, L501.9910 ####[facility] [address] [place], [address] Chloride [Moles/Vol] 105 mmol/L Normal 96-108 [facility] Comment on above: Performed By: #### L 500.4050, L500.4100, L501.9910 ####[facility] [address] [place], [address] CO2 [Moles/Vol] 23.8 mmol/L Normal 22.0-29.0 [facility] Comment on above: Performed By: #### L 500.4050, L500.4100, L501.9910 ####[facility] [address] [place], [address] Creatinine [Mass/Vol] 0.8 mg/dL Normal 0.8-1.3 [facility] Comment on above: Performed By: #### L 500.4050, L500.4100, L501.9910 ####[facility] [address] [place], [address] GFR/1.73 sq M.predicted among non-blacks MDRD (S/P/Bld) [Vol rate/Area] 92 mL/min/{1.73_m2} Normal >60 [facility] Comment on above: Result Comment: mL/m in/1.73m2 CKD-EPI Creatinine Equation (2020) Performed By: #### L 500.4050, L500.4100, L501.9910 ####[facility] [address] [place], [address] Globulin (S) [Mass/Vol] 3.3 g/dL Normal 2.2-4.2 [facility] Comment on above: Performed By: #### L 500.4050, L500.4100, L501.9910 ####[facility] [address] [place], [address] Glucose [Mass/Vol] 113 mg/dL High 70-99 [facility] Comment on above: Performed By: #### L 500.4050, L500.4100, L501.9910 ####[facility] [address] [place], [address] Potassium [Moles/Vol] 4.3 mmol/L Normal 3.3-5.1 [facility] Comment on above: Performed By: #### L 500.4050, L500.4100, L501.9910 ####[facility] [address] [place], [address] Sodium [Moles/Vol] 139 mmol/L Normal 133-145 [facility] Comment on above: Performed By: #### L 500.4050, L500.4100, L501.9910 ####[facility] [address] [place], [address] T PROT 7.3 g/dL Normal 5.9-8.4 [facility] Comment on above: Performed By: #### L 500.4050, L500.4100, L501.9910 ####[facility] [address] [place], [address] Urea nitrogen [Mass/Vol] 9 mg/dL Normal 4-19 [facility] Comment on above: Performed By: #### L 500.4050, L500.4100, L501.9910 ####[facility] [address] [place], [address] GFR/1.73 sq M.predicted radha g non-blacks MDRD (S/P/Bld) [Vol rate/Area]Ordered By: Dawson Laguna on 10-21-2024 Estimated GFR (MDRD) Non-Af Amer 92 >60 [facility] Comment on above: mL/min/1.73m2 CKD-EP I Creatinine Equation (2020) Glomerular filtration rate ( GFR) estimation/1.73 sq m using serum, plasma, or whole bOrdered By: Dawson Laguna on 10-21-2024 GFR/1.73 sq M.predicted among non-blacks MDRD (S/P/Bld) [Vol rate/Area] 92 mL/min/{1.73_m2} >60 [facility] Comment on above: mL/min/1.73m2 CKD-EP I Creatinine Equation (2020) LDL calc ser/plasOrdered By: Dawson Laguna on 10-21-2024 Cholesterol in LDL [Mass/Vol] 82 mg/dL [facility] Comment on above: Agrejufihb=647-120 m g/dL & Higher Jteg=491 mg/dL or greater LDL Cholesterol, Calculated 82 mg/dL [facility] Comment on above: Mudfpdnplo=087-223 m g/dL & Higher Tmgh=674 mg/dL or greater Laboratory - Chemistry and C hemistry - challengeOrdered By: Dawson Laguna on 10-21-2024 AST [Catalytic activity/Vol] 21 U/L <38 [facility] Lipid Profileon 10-21-2024 CHOL:HDL 6.98 Normal [facility] Comment on above: Performed By: #### L 500.4050, L500.4100, L501.9910 ####[facility] [address] [place], [address] Cholesterol [Mass/Vol] 173 mg/dL Normal <=200 [facility] Comment on above: Result Comment: Chol esterol level, Desirable <200 mg/dL Borderline high cholesterol 200-239 mg/dL High cholesterol >=240 mg/dL Recommendations of the NCEP Adult Treatment Panel for the following risk-cutoff thresholds for the [place] population. Performed By: #### L 500.4050, L500.4100, L501.9910 ####[facility] [address] [place], [address] Cholesterol in HDL [Mass/Vol] 25 mg/dL Low [facility] Comment on above: Result Comment: Robyn onal Cholesterol Education Program (NCEP) guidelines: <40 mg/dL: Low HDL-cholesterol (major risk factor for CHD) >= 60 mg/dL: High HDL-cholesterol (negative risk factor for CHD) HDL-cholesterol is affected by a number of factors, e.g. smoking, exercise, hormones, sex and age. Performed By: #### L 500.4050, L500.4100, L501.9910 ####[facility] [address] [place], [address] Cholesterol in LDL [Mass/Vol] 82 mg/dL Normal [facility] Comment on above: Result Comment: Bord shagtw=453-247 mg/dL Higher Unxv=478 mg/dL or greater Performed By: #### L 500.4050, L500.4100, L501.9910 ####[facility] [address] [place], [address] Cholesterol in VLDL [Mass/Vol] 67 mg/dL High 5-40 [facility] Comment on above: Performed By: #### L 500.4050, L500.4100, L501.9910 ####[facility] [address] [place], [address] Triglyceride [Mass/Vol] 333 mg/dL High [facility] Comment on above: Result Comment: The drugs N-Acetylcysteine and Metamizole may falsely depress this assay. Normal range: <150 mg/dL Borderline High: 150-199 mg/dL High: 200-499 mg/dL Very High: >500 mg/dL Performed By: #### L 500.4050, L500.4100, L501.9910 ####[facility] [address], [place], [address] PSA, total screeningOrdered By: Dawson Laguna on 10-21-2024 Prostate Specific Antigen Screen 6.42 ng/mL High 0.02-4.00 [facility] Comment on above: This test was perfor med using the [employer] tPSA method. Measured values of a patient sample can vary depending on the testing procedure used. PSA values determined on patient samples by different testing procedures cannot be used interchangeably. If there is a change in PSA assays while monitoring therapy, sequential testing should be performed to confirm baseline values. PSA,Total - Annual Screenon 10-21-2024 PSA,TOT SCREEN 6.42 ng/mL High 0.02-4.00 [facility] Comment on above: Result Comment: This test was performed using the [employer] tPSA method. Measured values of a patient??sample can vary depending on the testing procedure used. PSA values determined on patient samples by different testing procedures cannot be used interchangeably. If there is a change in PSA assays while monitoring therapy, sequential testing should be performed to confirm baseline values. Performed By: #### L 500.4050, L500.4100, L501.9910 ####[facility] [address], [place], [address] Screening total cholesterol/ high density lipoprotein (HDL) cholesterol ratioOrdered By: Dawson Laguna on 10-21-2024 Cholesterol.total/Zo sterol in HDL [Mass ratio] 6.98 {ratio} [facility] Serum creatinine measurement (mass/volume)Ordered By: Dawson Laguna on 10-21-2024 Creatinine [Mass/Vol] 0.8 mg/dL 0.70-1.20 [facility] Serum globulin measurementOr dered By: Dawson Laguna on 10-21-2024 Globulin (S) [Mass/Vol] 3.3 g/dL 2.2-4.2 [facility] Serum glucose measurement (m ass/volume)Ordered By: Dawson Laguna on 10-21-2024 Glucose [Mass/Vol] 113 mg/dL High 70-99 [facility] Serum or plasma alanine gaming otransferase (ALT) measurementOrdered By: Dawson Laguna on 10-21-2024 ALT [Catalytic activity/Vol] 14 U/L <47 [facility] Serum or plasma albumin chiquis urement (mass/volume)Ordered By: Dawson Laguna on 10-21-2024 Albumin [Mass/Vol] 4.0 g/dL 3.4-4.8 [facility] Serum or plasma albumin/glob ulin mass ratioOrdered By: Dawson Laguna on 10-21-2024 Albumin/Globulin [Mass ratio] 1.2 {ratio} 0.9-2.4 [facility] Serum or plasma alkaline kuldip sphatase measurementOrdered By: Dawson Laguna on 10-21-2024 ALP [Catalytic activity/Vol] 58 U/L 40-129 [facility] Serum or plasma anion gap de termination (moles/volume)Ordered By: Dawson Laguna on 10-21-2024 Anion gap [Moles/Vol] 10 mmol/L 5-15 [facility] Serum or plasma calcium chiquis urement (mass/volume)Ordered By: Dawson Laguna on 10-21-2024 Calcium [Mass/Vol] 9.2 mg/dL 7.6-11.0 [facility] Serum or plasma cholesterol in HDL measurement (mass/volume)Ordered By: Dawson Laguna on 10-21-2024 Cholesterol in HDL [Mass/Vol] 25 mg/dL Low >40 [facility] Comment on above: National Cholesterol Education Program (NCEP) guidelines:<40 mg/dL: Low HDL-cholesterol (major risk factor for CHD)>= 60 mg/dL: High HDL-cholesterol (negative risk factor for CHD)HDL-cholesterol is affected by a number of factors, e.g. smoking, exercise, hormones, sex and age. Serum or plasma cholesterol measurement (mass/volume)Ordered By: Dawson Laguna on 10-21-2024 Cholesterol [Mass/Vol] 173 mg/dL <201 [facility] Comment on above: Cholesterol level, D esirable <200 mg/dLBorderline high cholesterol 200-239 mg/dLHigh cholesterol >=240 mg/dLRecommendations of the NCEP Adult Treatment Panel for the following risk-cutoff thresholds for the [place] population. Serum or plasma potassium me asurementOrdered By: Dawson Laguna on 10-21-2024 Potassium [Moles/Vol] 4.3 mmol/L 3.3-5.1 [facility] Serum or plasma sodium measu rement (moles/volume)Ordered By: Dawson Laguna on 10-21-2024 Sodium [Moles/Vol] 139 mmol/L 133-145 [facility] Serum or plasma urea nitroge n measurement (mass/volume)Ordered By: Dawson Laguna on 10-21-2024 Urea nitrogen [Mass/Vol] 9 mg/dL 4-19 [facility] Total proteinOrdered By: Barb Laguna on 10-21-2024 Protein [Mass/Vol] 7.3 g/dL 5.9-8.4 [facility] Triglycerides measurementOrd ered By: Dawson Laguna on 10-21-2024 Triglyceride [Mass/Vol] 333 mg/dL High <199 [facility] Comment on above: The drugs N-Acetylcy steine and Metamizole may falsely depress this assay. Normal range: <150 mg/dLBorderline High: 150-199 mg/dLHigh: 200-499 mg/dLVery High: >500 mg/dL Basophil percentageOrdered B y: Dawson Laguna on 11-07-2023 Chloride [Moles/Vol] 110 mmol/L 98-107 [facility] Cholesterol [Mass/Vol] 173 mg/dL <200 [facility] Comment on above: <200 mg/dL Desirable 200-240 mg/dL Borderline >240 mg/dL High Risk Glucose [Mass/Vol] 121 mg/dL 74-106 [facility] Comment on above: Fasting Glucose resu lt from 100 to 125 mg/dL suggests IMPAIRED HOMEOSTASIS per A.D.A. criteria. Potassium [Moles/Vol] 4.0 mmol/L 3.5-5.1 [facility] Sodium [Moles/Vol] 140 mmol/L 136-145 [facility] Triglyceride [Mass/Vol] 336 mg/dL <199 [facility] Comment on above: The drugs N-Acetylcy steine and Metamizole may falsely depress this assay.Serum Triglycerides Reference Interval Normal <150 mg/dL Borderline high 150 - 199 mg/dL High 200 - 499 mg/dL Very High > or = 500 mg/dL Laboratory - Chemistry and C hemistry - challengeOrdered By: Dawson Laguna on 11-07-2023 Cholesterol in HDL [Mass/Vol] 28 mg/dL >40 [facility] Comment on above: The drugs N-Acetylcy steine and Metamizole may falsely depress this assay. Reference Range HDL <40 mg/dL Low HDL Cholesterol HDL >or= 60 mg/dL High HDL Cholesterol Cholesterol in LDL [Mass/Vol] 78 mg/dL 0-130 [facility] CO2 [Moles/Vol] 26.0 mmol/L 21.0-32.0 [facility] Urea nitrogen/Creatinine [Mass ratio] 16.4 mg/mg 10-20 [facility] No Panel InformationOrdered By: Dawson Laguna on 11-07-2023 Estimated GFR (MDRD) Amer 136 mL/min >60 [facility] Comment on above: GFR Calc Estimated GFR (MDRD) Non-Af Amer 112 mL/min >60 [facility] Comment on above: Non- GFR Calc Prostate Specific Antigen Screen 6.71 ng/mL 0.00-4.00 [facility] Comment on above: This test was perfor med using the TPSA assay method for the[employer] [facility] [employer] system. Values obtained with differentassay methods cannot be used interchangably.When changing PSA assays in the course of monitoring apatient, additional sequential testing should be carriedout to confirm baseline values. VLDL Cholesterol 67 mg/dL 5-40 [facility] Serum or plasma calcium chiquis urement (mass/volume)Ordered By: Dawson Laguna on 11-07-2023 Calcium [Mass/Vol] 9.0 mg/dL 8.5-10.1 [facility] Serum or plasma creatinine m easurement (mass/volume)Ordered By: Dawson Laguna on 11-07-2023 Creatinine [Mass/Vol] 0.73 mg/dL 0.70-1.30 [facility] Comment on above: The validity of the calculated GFR & GFRAA in patients over 70 years has not been determined. Clinical correlation is essential. Serum or plasma urea nitroge n measurement (mass/volume)Ordered By: Dawson Laguna on 11-07-2023 Urea nitrogen [Mass/Vol] 12 mg/dL 7-18 [facility] Thin prep Papanicolaou smear with manual screeningOrdered By: Dawson Laguna on 11-07-2023 Thin prep Papanicolaou smear with manual screening 4 5-15 [facility] Absolute lymphocyte counton 04-26-2022 Lymphocytes Auto (Unsp spec) [#/Vol] 2.20 10*3/uL 0.83-4.51 [facility] Work Phone: Basophil percentageon 2021 Basophils/100 WBC (Bld) 0.5 % 0-1 [facility] Work Phone: [phone] Eosinophils/100 WBC (Bld) 2.4 % 0-5 [facility] Work Phone: [phone] Neutrophils (Bld) [#/Vol] 2.9 10*3/uL 2.0-7.7 [facility] Work Phone: Neutrophils/100 WBC (Bld) 50.1 % 47-70 [facility] Work Phone: [phone] WBC (Bld) [#/Vol] 5.8 10*3/uL 4.4-11.0 [facility] Work Phone: Blood erythrocytes count (nu mber/volume)on 04-26-2022 RBC (Bld) [#/Vol] 4.42 10*6/uL 4.6-6.2 [facility] Work Phone: Blood hemoglobin measurement (mass/volume)on 04-26-2022 Hemoglobin (Bld) [Mass/Vol] 13.3 g/dL 13.0-16.5 [facility] Work Phone: Blood lymphocytes/100 leukoc yteson 04-26-2022 Lymphocytes/100 WBC (Bld) 38.1 % 19-41 [facility] Work Phone: Blood monocytes/100 leukocyt eson 04-26-2022 Monocytes/100 WBC (Bld) 8.7 % 0-10 [facility] Work Phone: Blood platelet mean volumeon 04-26-2022 Platelet mean volume (Bld) [Entitic vol] 11.1 fL 6.2-12.0 [facility] Work Phone: Determination of erythrocyte mean corpuscular volume (MCV)on 04-26-2022 MCV (RBC) [Entitic vol] 86.9 fL 80-94 [facility] Work Phone: Hematocrit Auto (Bld) [Volum e fraction]on 04-26-2022 Hematocrit (Bld) [Volume fraction] 38.4 % 40-54 [facility] Work Phone: Laboratory - Hematology and Cell countson 04-26-2022 Erythrocyte distribution width (RBC) [Entitic vol] 40.7 fL 35.1-43.9 [facility] Work Phone: Erythrocyte distribution width (RBC) [Ratio] 12.9 % 11.6-14.6 [facility] Work Phone: Immature granulocytes/100 WBC (Bld) 0.200 % 0.0-0.9 [facility] Work Phone: Comment on above: IG% - Immature Granu locytes (promyelocytes, myelocytes and metamyelocytes) > 1% indicates that a LEFT SHIFT is Present. MCH (RBC) [Entitic mass] 30.1 pg 27.0-32.0 [facility] Work Phone: Nucleated RBC/100 WBC (Bld) [Ratio] 0 % 0-5 [facility] Work Phone: MCHC Auto (RBC) [Mass/Vol]on 04-26-2022 MCHC (RBC) [Mass/Vol] 34.6 g/dL 32-36 [facility] Work Phone: Platelets bldon 04-26-2022 Platelets (Bld) [#/Vol] 176 10*3/uL 150-450 [facility] Work Phone: Basophil percentageon 2021 Chloride [Moles/Vol] 106 mmol/L 98-107 [facility] Work Phone: Glucose [Mass/Vol] 170 mg/dL 74-106 [facility] Work Phone: Comment on above: Fasting Glucose resu lt greater than or equal to 126 mg/dL suggests DIABETES MELLITUS per A.D.A. criteria. Potassium [Moles/Vol] 3.8 mmol/L 3.5-5.1 [facility] Work Phone: Sodium [Moles/Vol] 139 mmol/L 136-145 [facility] Work Phone: WBC (Bld) [#/Vol] 9.3 10*3/uL 4.4-11.0 [facility] Work Phone: Blood erythrocytes count (nu mber/volume)on 01-03-2022 RBC (Bld) [#/Vol] 3.72 10*6/uL 4.6-6.2 [facility] Work Phone: Blood hemoglobin measurement (mass/volume)on 01-03-2022 Hemoglobin (Bld) [Mass/Vol] 11.3 g/dL 13.0-16.5 [facility] Work Phone: Blood platelet mean volumeon 01-03-2022 Platelet mean volume (Bld) [Entitic vol] 11.3 fL 6.2-12.0 [facility] Work Phone: Determination of erythrocyte mean corpuscular volume (MCV)on 01-03-2022 MCV (RBC) [Entitic vol] 89.5 fL 80-94 [facility] Work Phone: Hematocrit Auto (Bld) [Volum e fraction]on 01-03-2022 Hematocrit (Bld) [Volume fraction] 33.3 % 40-54 [facility] Work Phone: Laboratory - Chemistry and C hemistry - challengeon 01-03-2022 CO2 [Moles/Vol] 27.0 mmol/L 21.0-32.0 [facility] Work Phone: Urea nitrogen/Creatinine [Mass ratio] 18.0 mg/mg 10-20 [facility] Work Phone: Laboratory - Hematology and Cell countson 01-03-2022 Erythrocyte distribution width (RBC) [Entitic vol] 39.2 fL 35.1-43.9 [facility] Work Phone: Erythrocyte distribution width (RBC) [Ratio] 12.0 % 11.6-14.6 [facility] Work Phone: MCH (RBC) [Entitic mass] 30.4 pg 27.0-32.0 [facility] Work Phone: MCHC Auto (RBC) [Mass/Vol]on 01-03-2022 MCHC (RBC) [Mass/Vol] 33.9 g/dL 32-36 [facility] Work Phone: No Panel Informationon 01-03 Estimated Creatinine Clearance Calc 64.26 ml/min [facility] Work Phone: Estimated GFR (MDRD) Amer 138 mL/min >60 [facility] Work Phone: Comment on above: GFR Calc Estimated GFR (MDRD) Non-Af Amer 114 mL/min >60 [facility] Work Phone: Comment on above: Non- GFR Calc Platelets bldon 01-03-2022 Platelets (Bld) [#/Vol] 130 10*3/uL 150-450 [facility] Work Phone: Serum or plasma calcium chiquis urement (mass/volume)on 01-03-2022 Calcium [Mass/Vol] 8.2 mg/dL 8.5-10.1 [facility] Work Phone: Serum or plasma creatinine m easurement (mass/volume)on 01-03-2022 Creatinine [Mass/Vol] 0.72 mg/dL 0.70-1.30 [facility] Work Phone: Comment on above: The validity of the calculated GFR & GFRAA in patients over 70 years has not been determined. Clinical correlation is essential. Serum or plasma urea nitroge n measurement (mass/volume)on 01-03-2022 Urea nitrogen [Mass/Vol] 13 mg/dL 7-18 [facility] Work Phone: Thin prep Papanicolaou smear with manual screeningon 01-03-2022 Thin prep Papanicolaou smear with manual screening 6 5-15 [facility] Work Phone: Glucose Glucometer (BldC) [M ass/Vol]on 01-02-2022 Glucose [Mass/Vol] 121 mg/dL 74-106 [facility] Work Phone: Comment on above: MANAGEMENT OF PATIEN T CARE PER NURSING PROTOCOL Absolute lymphocyte counton 12-21-2021 Lymphocytes Auto (Unsp spec) [#/Vol] 1.68 10*3/uL 0.83-4.51 [facility] Work Phone: Basophil percentageon 2021 Basophils/100 WBC (Bld) 0.6 % 0-1 [facility] Work Phone: Eosinophils/100 WBC (Bld) 2.2 % 0-5 [facility] Work Phone: Neutrophils (Bld) [#/Vol] 2.5 10*3/uL 2.0-7.7 [facility] Work Phone: Neutrophils/100 WBC (Bld) 51.5 % 47-70 [facility] Work Phone: Blood lymphocytes/100 leukoc yteson 12-21-2021 Lymphocytes/100 WBC (Bld) 34.3 % 19-41 [facility] Work Phone: Blood monocytes/100 leukocyt eson 12-21-2021 Monocytes/100 WBC (Bld) 11.2 % 0-10 [facility] Work Phone: INR in Blood by Coagulation assayon 12-21-2021 INR Coag (Bld) [Relative time] 1.1 {INR} [facility] Work Phone: Laboratory - Chemistry and C hemistry - challengeon 12-21-2021 Magnesium [Mass/Vol] 1.9 mg/dL 1.6-2.6 [facility] Work Phone: Laboratory - Coagulationon 0 12-21-2021 aPTT Coag (Bld) [Time] 28.5 s 24.1-36.2 [facility] Work Phone: PT Coag (PPP) [Time] 13.4 s 11.7-14.9 [facility] Work Phone: Laboratory - Hematology and Cell countson 12-21-2021 Immature granulocytes/100 WBC (Bld) 0.200 % 0.0-0.9 [facility] Work Phone: Comment on above: IG% - Immature Granu locytes (promyelocytes, myelocytes and metamyelocytes) > 1% indicates that a LEFT SHIFT is Present. Nucleated RBC/100 WBC (Bld) [Ratio] 0 % 0-5 [facility] Work Phone: No Panel Informationon 12-21 Fructosamine 229 umol/L 0-285 [facility] Work Phone: Comment on above: Published reference interval for apparently healthysubjects between age 20 and 60 is 205 - 285 umol/L and in apoorly controlled diabetic population is 228 - 563 umol/Lwith a mean of 396 umol/L.Performed at: [address] [id number] Director: Brodie Kirby PhD, Phone: [phone] Nasal Screen MRSA/MSSA [facility] Work Phone: Laboratory - Microbiology an d Antimicrobial susceptibilityon 12-03-2021 S. pyogenes Ag IA Ql (Unsp spec) Negative [facility] Work Phone: CNOVon 08-23-2019 CNOV Office Visit (UCWSTR ) HANNAH LEBRON ([id number]) 1950 M Date Time Provider Department 08/23/19 11:15 AM BRIANNA FORD) WSTR During your visit today, we recorded the following information about you: Temperature Pulse Respiration Blood pressure 98.7 degrees 68/minute 20/minute 128/86 Weight 117.3 kg Brianna Ford PA-C 08/23/2019 1:00 PM Signed Subjective HPI HPI Hannah Polanco Emmanuel is a 68 year old male who [...] Ford PA-C 08/23/2019 12:52 PM Signed [facility] [address] [place], [place] [address] Emergency Department Diagnosis: Assessment ACUTE BRONCHITIS: You [...] [115] Cmt: x 3 weeks Primary Visit Diagnosis:Sinobronchi tis [J32.9, J40] Other Visit Diagnosis:Wheezing [R06.2] Order(s):amoxicillin- clavulanic acid (AUGMENTIN) 875-125 mg per tabletTake 1 [...] (None) Other instructions from your clinician: [facility] [address] [place], [place] [address] Emergency Department Diagnosis: Assessment ACUTE BRONCHITIS: You [...] Encounter Status:Closed by BRIANNA FORD on 08/23/19 [facility] PROGRESSon 08-23-2019 PROGRESS HNO ID: [id number] Author: Brianna (Ben) Cristofer Service: ? Author Type: Physician Doctor Of Medicine Type: Progress Notes Filed: 08/23/2019 1:00 PM [...] with the plan. Brianna Ford PA-C [facility] No Panel Information Nasal Screen MRSA/MSSA [facility] Work Phone: Vital Signs Date Time Vital Sign Value Performing Clinician Faci lity 01-07-2025 08:36-0400 Body height 170.[address] Dawson Laguna MD Work Phone: [facility] 01-07-2025 08:36-0400 Body mass index (BMI) [Ratio] 37.9 kg/m2 Dr. Dawson Laguna MD Work Phone: [facility] 01-07-2025 08:36-0400 Body weight 109.[address] Dawson Laguna MD Work Phone: [facility] 01-07-2025 08:36-0400 Diastolic blood pressure 83 mm[Hg] Dr. Dawson Laguna MD Work Phone: [facility] 01-07-2025 08:36-0400 Heart rate 67 /min Dr. Dawson Laguna MD Work Phone: [facility] 01-07-2025 08:36-0400 Respiratory rate 20 /min Dr. Dawson Laguna MD Work Phone: [facility] 01-07-2025 08:36-0400 Systolic blood pressure 118 mm[Hg] Dr. Dawson Laguna MD Work Phone: [facility] 10-28-2024 11:10-0500 Body height 170.[address] Dawson Laguna MD Work Phone: [facility] 10-28-2024 11:10-0500 Body mass index (BMI) [Ratio] 38 kg/m2 Dr. Dawson Laguna MD Work Phone: [facility] 10-28-2024 11:10-0500 Body weight 109.[address] Dawson Laguna MD Work Phone: [facility] 02-13-2022 15:55-0400 Body temperature 97.4 [degF] Dr. Dawson Laguna Work Phone: [facility] Work Phone: 02-13-2022 15:55-0400 Diastolic blood pressure 56 mm[Hg] Dr. Dawson Laguna Work Phone: [facility] Work Phone: 02-13-2022 15:55-0400 Heart rate 64 /min Dr. Dawson Laguna Work Phone: [facility] Work Phone: 02-13-2022 15:55-0400 Respiratory rate 16 /min Dr. Dawson Laguna Work Phone: [facility] Work Phone: 02-13-2022 15:55-0400 SaO2% (BldA) [Mass fraction] 99 % Dr. Dawson Laguna Work Phone: [facility] Work Phone: 02-13-2022 15:55-0400 Systolic blood pressure 127 mm[Hg] Dr. Dawson Laguna Work Phone: [facility] Work Phone: 02-13-2022 12:07-0400 Body height 170.[address] Dawson Laguna Work Phone: [facility] Work Phone: 02-13-2022 12:07-0400 Body mass index (BMI) [Ratio] 38.7 kg/m2 Dr. Dawson Laguna Work Phone: [facility] Work Phone: 02-13-2022 12:07-0400 Body weight 112.[address] Dawson Laguna Work Phone: [facility] Work Phone: 01-03-2022 12:57-0400 Body temperature 97.9 [degF] Dr. Dawson Laguna Work Phone: [facility] Work Phone: 01-03-2022 12:57-0400 Diastolic blood pressure 68 mm[Hg] Dr. aDwson Laguna Work Phone: [facility] Work Phone: 01-03-2022 12:57-0400 Heart rate 59 /min Dr. Dawson Laguna Work Phone: [facility] Work Phone: 01-03-2022 12:57-0400 Respiratory rate 18 /min Dr. Dawson Laguna Work Phone: [facility] Work Phone: 01-03-2022 12:57-0400 SaO2% (BldA) [Mass fraction] 97 % Dr. Dawson Laguna Work Phone: [facility] Work Phone: 01-03-2022 12:57-0400 Systolic blood pressure 116 mm[Hg] Dr. Dawson Laguna Work Phone: [facility] Work Phone: 01-03-2022 08:04-0400 Inhaled oxygen flow rate 4 L/min Dr. Dawson Laguna Work Phone: [facility] Work Phone: 01-02-2022 07:12-0400 Body height 170.[address] Dawson Laguna Work Phone: [facility] Work Phone: 01-02-2022 07:12-0400 Body mass index (BMI) [Ratio] 38.6 kg/m2 Dr. Dawson Laguna Work Phone: [facility] Work Phone: 01-02-2022 07:12-0400 Body weight 111.[address] Dawson Laguna Work Phone: [facility] Work Phone: 12-03-2021 12:16-0400 Body temperature 97.2 [degF] Dr. Dawson Laguna Work Phone: [facility] Work Phone: 12-03-2021 12:16-0400 Diastolic blood pressure 80 mm[Hg] Dr. Dawson Laguna Work Phone: [facility] Work Phone: 12-03-2021 12:16-0400 Heart rate 72 /min Dr. Dawson Laguna Work Phone: [facility] Work Phone: 12-03-2021 12:16-0400 Respiratory rate 15 /min Dr. Dawson Laguna Work Phone: [facility] Work Phone: 12-03-2021 12:16-0400 SaO2% (BldA) [Mass fraction] 98 % Dr. Dawson Laguna Work Phone: [facility] Work Phone: 12-03-2021 12:16-0400 Systolic blood pressure 132 mm[Hg] Dr. Dawson Laguna Work Phone: [facility] Work Phone: 11-06-2021 08:22-0400 Body height 170.[address] Dawson Laguna Work Phone: [facility] Work Phone: 11-06-2021 08:22-0400 Body mass index (BMI) [Ratio] 38.7 kg/m2 Dr. Dawson Laguna Work Phone: [facility] Work Phone: 11-06-2021 08:22-0400 Body weight 112.[address] Dawson Laguna Work Phone: [facility] Work Phone: Encounters Encounter Date Encounter Type Care Provider Facility Start: 04-08-2025 End: 04-08-[address] Dawson Laguna MD Work Phone: -Laboratory [facility] Start: 04-08-2025 End: 04-08-[address] Dawson Laguna MD -[facility] Start: 04-08-2025 End: 04-08-2025 ambulatory Dawson Laguna Facility:[facility] Start: 02-18-2025 ambulatory Amy Franklin Facility:[facility] Start: 02-18-2025 Non-patient / Non-visit Dr. Amy yanez MD -[facility] Start: 02-18-2025 End: 02-18-[address] Dawson Laguna MD Work Phone: -Cardiovascular Services Start: 02-18-2025 End: 02-18-[address] Amy Reid MD -Cardiovascular Services Work Phone: Start: 02-18-2025 End: 02-18-2025 ambulatory Amy Franklin Facility:[facility] Start: 01-07-2025 End: 01-07-[address] Amy Reid MD -[facility] Work Phone: Start: 01-07-2025 End: 01-07-[address] Dawson Laugna MD Work Phone: [facility] Work Phone: Start: 01-07-2025 End: 01-07-2025 ambulatory Amy [facility] Facility:[facility] Start: 12-17-2024 End: 12-17-[address] Dawson Laguna MD -Laboratory [facility] Start: 12-17-2024 End: 12-17-2024 ambulatory Dawson Laguna Facility:[facility] Start: 10-28-2024 End: 10-28-[address] Jim Whelan DO -[facility] Work Phone: Start: 10-28-2024 End: 10-28-2024 ambulatory Jim Whelan Facility:[facility] Start: 10-21-2024 End: 10-21-[address] Dawson Laguna MD Work Phone: [facility] Work Phone: Start: 10-21-2024 End: 10-21-[address] [facility] Start: 10-21-2024 End: 10-21-2024 ambulatory Dawson Laguna Facility:[facility] Start: 11-07-2023 End: 11-07-2023 ambulatory [facility] Work Phone: Start: 11-07-2023 End: 11-07-2023 Patient encounter procedure [facility] Start: 05-11-2022 Non-patient / Non-visit Dr. Ben Laguna Work Phone: [facility] Start: 05-11-2022 End: 05-11-[address] Dawson Laguna Work Phone: [facility] Work Phone: Start: 05-11-2022 End: 05-11-[address] Dawson Laguna Work Phone: [facility]-Cardiovascular Services Start: 04-26-2022 End: 04-26-[address] Dawson Laguna Work Phone: [facility] Work Phone: Start: 04-26-2022 End: 04-26-[address] Dawson Laguna Work Phone: [facility] Start: 03-28-2022 End: 03-28-[address] Dawson Laguna Work Phone: [facility] Start: 03-12-2022 End: 03-12-[address] Dawson Laguna Work Phone: [facility] Start: 02-28-[address] [facility] Start: 02-21-2022 End: 02-21-[address] Dawson Laguna Work Phone: [facility] Start: 02-13-2022 Non-patient / Non-visit Dr. Ben Laguna Work Phone: [facility] Start: 02-13-2022 End: 02-13-2022 Admission to same day surgery center Dr. Dawson [facility] Start: 02-12-2022 End: 02-12-[address] Dawson Laguna Work Phone: [facility] Start: 01-25-2022 End: 01-25-[address] Dawson Laguna Work Phone: [facility] Start: 01-18-[address] [facility] Start: 01-15-2022 Non-patient / Non-visit Dr. Ben Laguna Work Phone: [facility] Start: 01-15-2022 End: 01-15-[address] Dawson Laguna Work Phone: [facility]-Cardiovascular Services Start: 01-15-2022 End: 01-15-[address] Dawson Laguna Work Phone: [facility] Start: 01-10-2022 End: 01-10-[address] Dawson Laguna Work Phone: [facility] Start: 01-03-2022 Non-patient / Non-visit Dr. Ben Laguna Work Phone: [facility] Start: 01-02-2022 Non-patient / Non-[facility] Start: 01-02-2022 End: 01-03-2022 Evaluation and management of inpatient Dr. Dawson Laguna Work Phone: [facility]-Medical Surgical 3 Start: 12-21-2021 Non-patient / Non-visit Dr. Ben Laguna Work Phone: [facility] Start: 12-12-2021 End: 12-12-[address] Dawson Laguna Work Phone: [facility] Start: 12-03-2021 End: 12-03-[address] Dawson Laguna Work Phone: [facility] Start: 11-06-2021 End: 11-06-[address] Dawson Laguna Work Phone: [facility] Start: 10-26-2021 End: 10-26-[address] Dawson Laguna Work Phone: [facility]-Radiology, [place] Procedures Date Procedure Procedure Detail Performing Clinician Start: 04-08-2025 Urine microalbumin/creatinine ratio measurement Dr. Dawson Laguna MD Work Phone: Start: 02-18-2025 Cardiovascular stres s test using pharmacologic stress agent Dr. Dawson Laguna MD Work Phone: Start: 10-28-2024 XR knee, [address] [...] Activity Detail Author Start: 01-07-2025 Patient referral [facility] Work Phone: Start: 01-07-2025 Evaluation of diagnostic study results [facility] Start: 02-13-2022 Application of ice collar, cap or bag [facility] Work Phone: Start: 02-13-2022 Catheterization of vein [facility] Work Phone: Start: 02-13-2022 Elevation of affected extremity [facility] Work Phone: Start: 02-13-2022 Following clinical pathway protocol [facility] Work Phone: Start: 02-13-2022 End: 02-13-2022 Patient discharge [facility] Work Phone: Start: 02-13-2022 Procedure discontinued [facility] Work Phone: Start: 02-13-2022 Taking patient vital signs [facility] Work Phone: Start: 02-13-2022 Vital signs measurements [facility] Work Phone: Start: 02-13-2022 [facility] Work Phone: Start: 02-13-2022 Anesthesia closed procedures knee joint ANESTH KNEE JOINT PROCEDURE [facility] Work Phone: Start: 02-13-2022 Manipulation knee joint under general anesthesia FIXATION OF KNEE JOINT [facility] Work Phone: Start: 02-13-2022 Medication education [facility] Work Phone: Start: 01-03-2022 Patient discharge [facility] Work Phone: Start: 01-02-2022 Following clinical pathway protocol [facility] Work Phone: Start: 01-02-2022 Oxygen therapy [facility] Work Phone: Start: 01-02-2022 Provision of overbed trapeze [facility] Work Phone: Start: 01-02-2022 Application of intermittent pneumatic compression device [facility] Work Phone: Start: 01-02-2022 Ambulation therapy management [facility] Work Phone: Start: 01-02-2022 Application of antithromboembolic stockings [facility] Work Phone: Start: 01-02-2022 Application of device [facility] Work Phone: Start: 01-02-2022 Application of elastic bandage [facility] Work Phone: Start: 01-02-2022 Assessment of risk of venous thromboembolism [facility] Work Phone: Start: 01-02-2022 Catheterization of vein [facility] Work Phone: Start: 01-02-2022 Exercises [facility] Work Phone: Start: 01-02-2022 Following clinical pathway protocol [facility] Work Phone: Start: 01-02-2022 Incentive spirometry [facility] Work Phone: Start: 01-02-2022 Introduction of urinary catheter [facility] Work Phone: Start: 01-02-2022 Measuring intake and output [facility] Work Phone: Start: 01-02-2022 Neurovascular assessment [facility] Work Phone: Start: 01-02-2022 Patient education [facility] Work Phone: Start: 01-02-2022 Procedure discontinued [facility] Work Phone: Start: 01-02-2022 Provision of activity privileges [facility] Work Phone: Start: 01-02-2022 Referral to occupational therapist [facility] Work Phone: Start: 01-02-2022 Referral to service [facility] Work Phone: Start: 01-02-2022 Vital signs measurements [facility] Work Phone: Start: 01-02-2022 Wound care [facility] Work Phone: Start: 01-02-2022 [facility] Work Phone: Start: 01-02-2022 Admission procedure [facility] Work Phone: Comprehensive metabo lic 2000 panel - Serum or Plasma [facility] NM Heart Views W str ess and W radionuclide IV [facility] Patient referral [facility] Work Phone: Thyroid stimulating hormone measurement [facility] US Heart [facility] US.doppler Lower ext remity vein [facility] Work Phone: XR Knee 3 Views [facility] Work Phone: Payers Date Payer Category Payer Private Health Insurance 101 [id number] 2024 Self-pay [id number] 2013 Private Health Insurance [facility] [id number] Private Health Insurance [facility] [id number] Private Health Insurance [facility] [id number] Unknown [id number] Unknown [id number] Unknown [id number] Unknown [id number] Unknown [id number] Unknown [id number] Unknown [id number] Unknown [id number] Unknown [id number] Unknown [id number] Social History Date Type Detail Facility Start: 12-03-2021 End: 05-09-2023 Tobacco smoking status NHIS Unknown if ever smoked [facility] Start: 1950 Sex Assigned At Male [facility] Start: 05-09-2023 [facility] Start: 11-05-2024 Sex Male (finding) [facility] Start: 12-31-2024 [facility] (finding[facility] Medical Equipment Procedure Code Equipment Code Equipment Origin al Text Equipment Identifier Dates Orthopaedic ceme nt, non-antimicrobial ()[id number] FDA Start: 01-02-2022 Orthopaedic ceme nt, non-antimicrobial ()[id number] FDA Start: 01-02-2022 ([id number]) Uncoated knee fe mur prosthesis, metallic ()[id number] FDA Start: 01-02-2022 ([id number]) Uncoated knee ti opal prosthesis, metallic ()[id number] FDA Start: 01-02-2022 ([id number]) Polyethylene pat alex prosthesis ()[id number] FDA Start: 01-02-2022 ([id number]) Tibial insert ()[id number] FDA Start: 01-02-2022 Goals Date Patient Goal Desired Activity /State Functional Status Date Assessment Result Facility 01-03-2022 Functional status Standby Assist [facility] Work Phone: 01-02-2022 Functional status Ambulates;Bathroom Priv ilege [facility] Work Phone: Mental Status Date Assessment Result Facility 02-13-2022 Cognitive function Voice/Name [facility] Work Phone: 01-03-2022 Cognitive function Level Of Cons ciousness Awake;Alert;Appropriate;Follow s Commands [facility] Work Phone: 01-02-2022 Cognitive function Voice/Name [facility] Work Phone: Evaluation note 01-07-2025 Note Date & Type Note Facility 01-07-2025 Evaluation note Diagnosis Onset Date Resolution Atrial fibrillation acute December 242024 9:50am HTN (hypertension) chronic January 072024 9:50am Obesity (BMI 30-39.9) chronic January 07, 2025 9:50am Suspected sleep apnea chronic January 07, 2025 9:50am History of CVA (cerebrovascular accident) resolved January 07, 2025 9 :50am [facility] Work Phone: Evaluation note 10-28-2024 Note Date & Type Note Facility 10-28-2024 Evaluation note Diagnosis Onset Date Resolution History of total right knee replacement acute October 28, 2024 10:55am [facility] Work Phone: Evaluation note 10-28-2024 Note Date & Type Note Facility 10-28-2024 Evaluation note Diagnosis Onset Date Resolution History of total right knee replacement inactive October 28, 2024 10:55am Atrial fibrillation acute December 242024 9:50am [facility] Work Phone: Evaluation note 10-28-2024 Note Date [...] accident) resolved January 07, 2025 9 :50am [facility] Work Phone: Evaluation note Note Date & Type Note Facility Evaluation note Diagnosis Onset Date Osteoarthritis of right knee acute Pharyngitis acute URI (upper respiratory infection) acute [facility] Work Phone: Evaluation note Note Date & Type Note Facility Evaluation note Diagnosis Onset Date Osteoarthritis of right knee acute Pharyngitis acute URI (upper respiratory infection) acute History of total knee arthroplasty acute History of total knee arthroplasty acute Other acute postprocedural pain acute History of total knee arthroplasty acute Other acute postprocedural pain acute [facility] Work Phone: Evaluation note Note Date & [...] aftercare acute S/P total knee arthroplasty acute [facility] Work Phone: Evaluation note Note Date & [...] aftercare acute S/P total knee arthroplasty acute [facility] Work Phone: Evaluation note Note Date & Type Note Facility Evaluation note No assessment information availa [facility] Work Phone: Reason for referral (narrative) Note Date & Type Note Facility Reason for referral (narrative) No reason for referral information available [facility] Work Phone: Summary Purpose Family History No Family History Records FoundNo Family History Records Found Advance Directives No Advanced Directives Records Found Advance Directive Response Recorded Date/ Time Advance Directives No December 20 2 016 8:24am Living Will No December 21, 2015 8:24am Power of Cattery Operator No December 20 8:24am Advance Directive Response Recorded Date/ Time Advance Directives No December 20 2 016 8:24am Living Will No December 19, 2021 2:45pm Power of Cattery Operator No December 19 2:45pm Advance Directive Response Recorded Date/ Time Advance Directives No February 12 8:56am Living Will No February 12, 2022 12:03pm Power of Cattery Operator No February 12 12:03pm Advance Directive Response [...] (cerebrovascular accident ) January 07, 2025 9:50am Chief Complaint Admit Date RIGHT KNEE October 28, 2024 10:5 5am Room 2 October 28, 2024 11:2 0am Atrial fibrillation January 07, 2025 9:50a m INT [facility] January 07, 2025 10:42 am TIA CVA February 18, 2025 6:24 am TIA CVA February 18, 2025 1:39 pm Chief Complaint Admit Date Atrial fibrillation January 07, 2025 9:50a m INT [facility] January 07, 2025 10:42 am TIA CVA February 18, 2025 6:24 am TIA CVA February 18, 2025 1:39 pm Reason for Visit Admit Date Atrial fibrillation January 07, 2025 9:50a m [...] section and content) DATE CREATED AUTHOR 08/23/2019 [facility] DATE CREATED AUTHOR AUTHOR'S ORGANIZ ATION 04/16/2025 [facility] Goals (unrecognized section and content) Goals [...] January 07, 2025 Team Status: Active Member Role/Relationship Status Dates Dr. Dawson Laguna MD Primary Care Provider Active Team Status: Inactive Member Role/Relationship Status Dates Dr. Dawson Laguna MD Primary Care Provider Active Start: October 28, 2024 End: October 28, 2024 Dr. Dawson Laguna MD Referring Provider Active Start: October 28, 2024 End: October 28, 2024 Dr. Jim Whelan DO Attending Provider Active Start: October 28, 2024 End: October 28, 2024 Team Status: Inactive Member Role/Relationship Status Dates Dr. Dawson Laguna MD Primary Care Provider Active Start: October 28, 2024 End: October 28, 2024 Dr. Clifford Sow MD Attending Provider Active S tart: October 28, 2024 End: October 28, 2024 Team Status: Inactive Member Role/Relationship Status Dates Dr. Dawson Laguna MD Primary Care Provider Active Start: December 17, 2024 End: December 17, 2024 Dr. Dawson Laguna MD Attending Provider Active Start: December 17, 2024 End: December 17, 2024 Dr. Dawson Laguna MD Referring Provider Active Start: December 17, 2024 End: December 17, 2024 Team Status: Inactive Member Role/Relationship Status Dates Dr. Dawson Laguna MD Primary Care Provider Active Start: January 07, 2025 End: January 07, 2025 Dr. Dawson Laguna MD Referring Provider Active Start: January 07, 2025 End: January 07, 2025 Dr. Amy Reid MD Attending Provider Active Start: January 07, 2025 End: January 07, 2025 Team Status: Inactive Member Role/Relationship Status Dates Dr. Dawson Laguna MD Primary Care Provider Active Start: January 07, 2025 End: January 07, 2025 Dr. Amy Reid MD Attending Provider Active Start: January 07, 2025 End: January 07, 2025 Dr. Amy Reid MD Referring Provider Active Start: January 07, 2025 End: January 07, 2025 Team Status: Inactive Member Role/Relationship Status Dates Dr. Dawson Laguna MD Primary Care Provider Active Start: February 18, 2025 End: February 18, 2025 Dr. Amy Reid MD Attending Provider Active Start: February 18, 2025 End: February 18, 2025 Dr. Amy Reid MD Referring Provider Active Start: February 18, 2025 End: February 18, 2025 Team Status: Active Member Role/Relationship Status Dates Dr. Dawson Laguna MD Primary Care Provider Active Start: February 18, 2025 Dr. Amy Reid MD Attending Provider Active Start: February 18, 2025 Dr. Amy Reid MD Referring Provider Active Start: February 18, 2025 Dr. Amy Reid MD Other Provider Active Star t: February 18, 2025 Team Status: Inactive Member Role/Relationship Status Dates Dr. Dawson Laguna MD Primary Care Provider Active Start: December 17, 2024 End: December 17, 2024 Dr. Dawson Laguna MD Attending Provider Active Start: December 17, 2024 End: December 17, 2024 Dr. Dawson Laguna MD Referring Provider Active Start: December 17, 2024 End: December 17, 2024 Team Status: Inactive Member Role/Relationship Status Dates Dr. Dawson Laguna MD Primary Care Provider Active Start: January 07, 2025 End: January 07, 2025 Dr. Dawson Laguna MD Referring Provider Active Start: January 07, 2025 End: January 07, 2025 Dr. Amy Reid MD Attending Provider Active Start: January 07, 2025 End: January 07, 2025 Team Status: Inactive Member Role/Relationship Status Dates Dr. Dawson Laguna MD Primary Care Provider Active Start: January 07, 2025 End: January 07, 2025 Dr. Amy Reid MD Attending Provider Active Start: January 07, 2025 End: January 07, 2025 Dr. Amy Reid MD Referring Provider Active Start: January 07, 2025 End: January 07, 2025 Team Status: Inactive Member Role/Relationship Status Dates Dr. Dawson Laguna MD Primary Care Provider Active Start: February 18, 2025 End: February 18, 2025 Dr. Amy Reid MD Attending Provider Active Start: February 18, 2025 End: February 18, 2025 Dr. Amy Reid MD Referring Provider Active Start: February 18, 2025 End: February 18, 2025 Team Status: Active Member Role/Relationship Status Dates Dr. Dawson Laguna MD Primary Care Provider Active Start: February 18, 2025 Dr. Amy Reid MD Attending Provider Active Start: February 18, 2025 Dr. Amy Reid MD Referring Provider Active Start: February 18, 2025 Dr. Amy Reid MD Other Provider Active Star t: February 18, 2025 Team Status: Inactive Member Role/Relationship Status Dates Dr. Dawson Laguna MD Primary Care Provider Active Start: April 08, 2025 End: April 08, 2025 Dr. Dawson Laguna MD Attending Provider Active Start: April 08, 2025 End: April 08, 2025 FOR RECORDS PERTAINING TO PATIENTS WHO [...] BE BASED ON THE PRIMARY CLINICAL RECORDS. [facility] [employer] [facility]. provides no warranty or guarantee of the accuracy or completeness of information in this document.
== END | disposition home or self-care (01) ==
LOC: RAD 14:02
PROVIDERS: PCP Family Medicine; Referring Provider Internal Medicine Cardiovascular Disease; Visit Provider Internal Medicine Cardiovascular Disease
DX: I48.91 Unspecified atrial fibrillation (principal); I42.9 Cardiomyopathy, unspecified; R94.39 Abnormal result of other cardiovascular function study; I10 Essential (primary) hypertension; Z86.73 Personal history of transient ischemic attack (TIA), and cerebral infarction without residual deficits
CPT/HCPCS: 36415; 71046; 80053; 85025; 85610; 85730

== ENCOUNTER 2025-07-28 07:08 | Day surgery (SDC) | payer MEDICARE, SELFPAY ==
[2025-07-27 08:56] VITALS: BMI 37.5
--- OUTSIDE RECORDS SUMMARY | 2025-07-28 07:11 | XMS RPT_ITS | CCD ---
Author Organization [facility] CliniSyar Care Team Providers Care Ghost Writer Name Role Phone Dr. Dawson Laguna Primary Care Provider Dr. Dawson Laguna Referring Provider Dr. Jim Whelan Attending Provider Richard JUNIOR UNDERWRITER, JAVAD De La Paz Attending Provider Dr. Dawson Larose Attending Provider Dr. Jim Whelan Referring Provider 1([facility]) -[phone] Dr. Jim Whelan Admit Provider 1([facility])-[phone] Jim Whelan Other Provider [phone] BEN Daily Attending Provider Dr. Clifford Sow Attending Provider Dr. Cuong Crenshaw Attending Provider Dr. Dawson Laguna Primary Care Provider Dr. Jim Whelan Attending Provider Dr. Jim Whelan Referring Provider Dr. Dawson Laguna Referring Provider BEN Daily Referring Provider BEN Alejandro Attending Provider Dr. Dawson Laguna Primary Care Provider Dr. Dawson Laguna Referring Provider BEN Daily Attending Provider Dr. Jim Whelan Attending Provider Dr. Jim Whelan Other Provider 1([facility])[phone] Clifford Sow Attending Provider Dr. [...] 21, 2015 12:00am April 17, 2021 1:45pm [place]-3 Fatty Acids-Fish Oil (Fish Oil 1,000 Mg Capsule) 1 EACH capsule (10 sources) Start: 12-21-2015 End: 04-17-2021 [place]-3 Fatty Acids-Fish Oil (Fish Oil 1,000 Mg Capsule) 1 EACH capsule Discontinued 1 EACH PO TWICE A DAY December 21, 2015 8:19am April 17, 2021 1:45pm Start: 12-21-2015 End: 04-17-2021 [place]-3 Fatty Acids-Fish Oil (Fish Oil 1,000 Mg Capsule) 1 EACH capsule Discontinued 1 NMA PO TWICE A DAY December 21, 2015 12:00am April 17, 2021 1:45pm Start: 12-21-2015 End: 04-17-2021 [place]-3 Fatty Acids-Fish Oil (Fish Oil 1,000 Mg [...] 04-08-2025 Anion gap [Moles/Vol] 11 mmol/L 01-07 [facility] BUN/creatinine ratioOrdered By: Dawson Laguna on 04-08-2025 Urea nitrogen/Creatinine [Mass ratio] 13.7 mg/mg 06-14 [facility] Bilirubin, totalOrdered By: Dawson Laguna on 04-08-2025 Bilirubin [Mass/Vol] 1.44 mg/dL High 0.00-1.30 [facility] Calculated very low density lipoprotein (VLDL) cholesterol measurementOrdered By: Dawson Laguna on 04-08-2025 Calculated very low density lipoprotein (VLDL) cholesterol measurement 58 mg/dL High 5-40 [facility] Carbon dioxide, total [Moles /volume] in Central venous bloodOrdered By: Dawson Laguna on 04-08-2025 CO2 [Moles/Vol] 22.2 mmol/L 21.0-32.0 [facility] Chloride assayOrdered By: Ben Laguna on 04-08-2025 Chloride [Moles/Vol] 108 mmol/L 98-108 [facility] Comprehensive Metabolic Prof ilon 04-08-2025 Albumin [Mass/Vol] 4.0 g/dL Normal 3.4-4.8 [facility] Comment on above: Performed By: #### L 502.0250, L500.4050, L500.4100 #### [facility] [address] [place], [place], [id number] Albumin/Globulin [Mass ratio] 1.3 {ratio} Normal 0.9-2.4 [facility] Comment on above: Performed By: #### L 502.0250, L500.4050, L500.4100 #### [facility] [address] [place], [address] ALK PHOS 55 U/L Normal 40-129 [facility] Comment on above: Performed By: #### L 502.0250, L500.4050, L500.4100 #### [facility] [address] [place], [address] ALT [Catalytic activity/Vol] 15 U/L Normal <=46 [facility] Comment on above: Performed By: #### L 502.0250, L500.4050, L500.4100 #### [facility] [address] [place], [address] AST [Catalytic activity/Vol] 17 U/L Normal <=37 [facility] Comment on above: Performed By: #### L 502.0250, L500.4050, L500.4100 #### [facility] [address] [place], [address] Bilirubin [Mass/Vol] 1.44 mg/dL High 0.00-1.30 [facility] Comment on above: Performed By: #### L 502.0250, L500.4050, L500.4100 #### [facility] [address] [place], [address] BUN/CRE 13.7 RATIO Normal 10-20 [facility] Comment on above: Performed By: #### L 502.0250, L500.4050, L500.4100 #### [facility] [address] [place], [address] Calcium [Mass/Vol] 9.4 mg/dL Normal 7.6-11.0 [facility] Comment on above: Performed By: #### L 502.0250, L500.4050, L500.4100 #### [facility] [address] [place], [address] Chloride [Moles/Vol] 108 mmol/L Normal 98-108 [facility] Comment on above: Performed By: #### L 502.0250, L500.4050, L500.4100 #### [facility] [address] [place], [address] CO2 [Moles/Vol] 22.2 mmol/L Normal 21.0-32.0 [facility] Comment on above: Performed By: #### L 502.0250, L500.4050, L500.4100 #### [facility] [address] [place], [address] Creatinine [Mass/Vol] 0.86 mg/dL Normal 0.70-1.20 [facility] Comment on above: Performed By: #### L 502.0250, L500.4050, L500.4100 #### [facility] [address] [place], [address] GAP 11 Normal 5-15 [facility] Comment on above: Performed By: #### L 502.0250, L500.4050, L500.4100 #### [facility] [address] [place], [address] GFR/1.73 sq M.predicted among non-blacks MDRD (S/P/Bld) [Vol rate/Area] 91 mL/min/{1.73_m2} Normal >60 [facility] Comment on above: Result Comment: mL/m in/1.73m2 CKD-EPI Creatinine Equation (2020) Performed By: #### L 502.0250, L500.4050, L500.4100 #### [facility] [address] [place], [address] Globulin (S) [Mass/Vol] 3.0 g/dL Normal 2.2-4.2 [facility] Comment on above: Performed By: #### L 502.0250, L500.4050, L500.4100 #### [facility] [address] [place], [address] Glucose [Mass/Vol] 142 mg/dL High 70-99 [facility] Comment on above: Performed By: #### L 502.0250, L500.4050, L500.4100 #### [facility] [address] [place], [address] Potassium [Moles/Vol] 4.1 mmol/L Normal 3.3-5.1 [facility] Comment on above: Performed By: #### L 502.0250, L500.4050, L500.4100 #### [facility] [address] [place], [address] Sodium [Moles/Vol] 141 mmol/L Normal 133-145 [facility] Comment on above: Performed By: #### L 502.0250, L500.4050, L500.4100 #### [facility] [address] [place], [address] T PROT 7.0 g/dL Normal 5.9-8.4 [facility] Comment on above: Performed By: #### L 502.0250, L500.4050, L500.4100 #### [facility] [address] [place], [address] Urea nitrogen [Mass/Vol] 12 mg/dL Normal 4-19 [facility] Comment on above: Performed By: #### L 502.0250, L500.4050, L500.4100 #### [facility] [address] [place], [address] Glomerular filtration rate ( GFR) estimation/1.73 sq m using serum, plasma, or whole bOrdered By: Dawson Laguna on 04-08-2025 GFR/1.73 sq M.predicted among non-blacks MDRD (S/P/Bld) [Vol rate/Area] 91 mL/min/{1.73_m2} >60 [facility] Comment on above: mL/min/1.73m2 CKD-EP I Creatinine Equation (2020) LDL calc ser/plasOrdered By: Dawson Laguna on 04-08-2025 Cholesterol in LDL [Mass/Vol] 48 mg/dL [facility] Comment on above: Baugxkwxhh=806-611 m g/dL & Higher Nfxe=561 mg/dL or greaterFriedwald Equation for LDL-C Laboratory - Chemistry and C hemistry - challengeOrdered By: Dawson Laguna on 04-08-2025 AST [Catalytic activity/Vol] 17 U/L <38 [facility] Lipid Profileon 04-08-2025 CHOL:HDL 4.84 Normal [facility] Comment on above: Performed By: #### L 502.0250, L500.4050, L500.4100 #### [facility] [address] [place], [address] Cholesterol [Mass/Vol] 134 mg/dL Normal <=200 [facility] Comment on above: Result Comment: Chol esterol level, Desirable <200 mg/dL Borderline high cholesterol 200-239 mg/dL High cholesterol >=240 mg/dL Recommendations of the NCEP Adult Treatment Panel for the following risk-cutoff thresholds for the [place] population. Performed By: #### L 502.0250, L500.4050, L500.4100 #### [facility] [address] [place], [address] Cholesterol in HDL [Mass/Vol] 28 mg/dL Low [facility] Comment on above: Result Comment: Robyn onal Cholesterol Education Program (NCEP) guidelines: <40 mg/dL: Low HDL-cholesterol (major risk factor for CHD) >= 60 mg/dL: High HDL-cholesterol (negative risk factor for CHD) HDL-cholesterol is affected by a number of factors, e.g. smoking, exercise, hormones, sex and age. Performed By: #### L 502.0250, L500.4050, L500.4100 #### [facility] [address] [place], [address] Cholesterol in LDL [Mass/Vol] 48 mg/dL Normal [facility] Comment on above: Result Comment: Bord rikfoi=887-513 mg/dL Higher Bhvf=346 mg/dL or greater Friedwald Equation for LDL-C Performed By: #### L 502.0250, L500.4050, L500.4100 #### [facility] [address] [place], [address] Cholesterol in VLDL [Mass/Vol] 58 mg/dL High 5-40 [facility] Comment on above: Performed By: #### L 502.0250, L500.4050, L500.4100 #### [facility] [address] [place], [address] Triglyceride [Mass/Vol] 292 mg/dL High [facility] Comment on above: Result Comment: The drugs N-Acetylcysteine and Metamizole may falsely depress this assay. Normal range: <150 mg/dL Borderline High: 150-199 mg/dL High: 200-499 mg/dL Very High: >500 mg/dL Performed By: #### L 502.0250, L500.4050, L500.4100 #### [facility] [address] [place], [address] Microalb:Creat Ratio,Random URon 04-08-2025 Creatinine [Mass/Vol] 197.00 mg/dL Normal 39.00-259.00 [facility] Comment on above: Performed By: #### L 502.0250, L500.4050, L500.4100 #### [facility] [address] [place], [address] MALB:CREAT 7.2 mg/g CRE Normal <30 mg/g CRE [facility] Comment on above: Performed By: #### L 502.0250, L500.4050, L500.4100 #### [facility] [address] [place], [place], [address] MICROALBUMIN,UR 14.2 mg/L Normal <20 mg/L [facility] Comment on above: Performed By: #### L 502.0250, L500.8850, L500.5595 #### [facility] [address] [place], [place], [address] Potassium measurement (mass/ volume)Ordered By: Dawson Laguna on 04-08-2025 Potassium (Unsp spec) [Mass/Vol] 4.1 mmol/L 3.3-5.1 [facility] Random urine creatinine chiquis urement (mass/volume)Ordered By: Dawson Laguna on 04-08-2025 Creatinine Unsp time (U) [Mass/Vol] 197.00 mg/dL 39.00-259.00 [facility] Screening total cholesterol/ high density lipoprotein (HDL) cholesterol ratioOrdered By: Dawson Laguna on 04-08-2025 Cholesterol.total/Zo sterol in HDL [Mass ratio] 4.84 {ratio} [facility] Serum creatinine measurement (mass/volume)Ordered By: Dawson Laguna on 04-08-2025 Creatinine [Mass/Vol] 0.86 mg/dL 0.70-1.20 [facility] Serum globulin measurementOr dered By: Dawson Laguna on 04-08-2025 Globulin (S) [Mass/Vol] 3.0 g/dL 2.2-4.2 [facility] Serum glucose measurement (m ass/volume)Ordered By: Dawson Laguna on 04-08-2025 Glucose [Mass/Vol] 142 mg/dL High 70-99 [facility] Serum or plasma alanine gaming otransferase (ALT) measurementOrdered By: Dawson Laguna on 04-08-2025 ALT [Catalytic activity/Vol] 15 U/L <47 [facility] Serum or plasma albumin chiquis urement (mass/volume)Ordered By: Dawson Laguna on 04-08-2025 Albumin [Mass/Vol] 4.0 g/dL 3.4-4.8 [facility] Serum or plasma albumin/glob ulin mass ratioOrdered By: Dawson Laguna on 04-08-2025 Albumin/Globulin [Mass ratio] 1.3 {ratio} 0.9-2.4 [facility] Serum or plasma alkaline kuldip sphatase measurementOrdered By: Dawson Laguna on 04-08-2025 ALP [Catalytic activity/Vol] 55 U/L 40-129 [facility] Serum or plasma calcium chiquis urement (mass/volume)Ordered By: Dawson Laguna on 04-08-2025 Calcium [Mass/Vol] 9.4 mg/dL 7.6-11.0 [facility] Serum or plasma cholesterol in HDL measurement (mass/volume)Ordered By: Dawson Laguna on 04-08-2025 Cholesterol in HDL [Mass/Vol] 28 mg/dL Low >40 [facility] Comment on above: National Cholesterol Education Program (NCEP) guidelines:<40 mg/dL: Low HDL-cholesterol (major risk factor for CHD)>= 60 mg/dL: High HDL-cholesterol (negative risk factor for CHD)HDL-cholesterol is affected by a number of factors, e.g. smoking, exercise, hormones, sex and age. Serum or plasma cholesterol measurement (mass/volume)Ordered By: Dawson Laguna on 04-08-2025 Cholesterol [Mass/Vol] 134 mg/dL <201 [facility] Comment on above: Cholesterol level, D esirable <200 mg/dLBorderline high cholesterol 200-239 mg/dLHigh cholesterol >=240 mg/dLRecommendations of the NCEP Adult Treatment Panel for the following risk-cutoff thresholds for the [place] Citizen [place] population. Serum or plasma urea nitroge n measurement (mass/volume)Ordered By: Dawson Laguna on 04-08-2025 Urea nitrogen [Mass/Vol] 12 mg/dL 4-19 [facility] Sodium levelOrdered By: Dawson Laguna on 04-08-2025 Sodium [Moles/Vol] 141 mmol/L 133-145 [facility] Total proteinOrdered By: Barb Laguna on 04-08-2025 Protein [Mass/Vol] 7.0 g/dL 5.9-8.4 [facility] Triglycerides measurementOrd ered By: Dawson Laguna on 04-08-2025 Triglyceride [Mass/Vol] 292 mg/dL High <199 [facility] Comment on above: The drugs N-Acetylcy steine and Metamizole may falsely depress this assay. Normal range: <150 mg/dLBorderline High: 150-199 mg/dLHigh: 200-499 mg/dLVery High: >500 mg/dL Urine albumin measurement [facility] detection limit of 20 mg/L or less (mass/volume)Ordered By: Dawson Laguna on 04-08-2025 Albumin DL <= 20 mg/L (U) [Mass/Vol] 14.2 mg/L <20 mg/L [facility] Cardiovascular stress test r eportOrdered By: Amy Reid on 02-18-2025 Study report [facility] [address] [place] [address] MR#: [id number] Acct: [id number] Name: HANNAH LEBRON Rep #: [id number] [...] of 47%. This note was generated with PathSource[employer] software. It may contain incorrectwords, spelling, and punctuation that were not noted in checking the note beforesigning. 02/18/25 1340 Date _ Amy Reid MD CC: Dr. Amy Reid MD; Dr. Dawson Laguna MD ~ Date Dictated: 02/18/25 1339 Date Transcribed: 02/18/251338 Director Independent: JUSTIN Gong [facility] Work Phone: Echo Completeon 02-18-2025 Echo Complete [facility] [address] [place] [address] Echo Complete 02/18/25 0932 MR#: [id number] Acct: [id number] Name: HANNAH LEBRON Rep #: [id number] : 1950 74 From: Amy Reid MD Attending Dr: Dr. Amy Reid MD Status: [facility] CLI Ordering Dr: Amy Reid MD Date: 02/18/25 Location: [facility] Sex: M C Admitted: Reason For Study [...] MD Date Dictated: 02/18/2532 Date Transcribed: 02/18/251447 Director Independent: Signed Normal [facility] Echocardiogram study reportO rdered By: Amy Reid on 02-18-2025 Study report [facility] [address] [place] [address] Echo Complete 02/18/25931 MR#: [id number] Acct: [id number] Name: HANNAH LEBRON Rep #:[id number] : 1950 74 From: Amy Reid MD Attending Dr: Dr. Amy Reid MD Status: REG CLI Ordering Dr: Amy Reid MD Date: Location: [facility] Sex: M C Admitted: Reason For Study [...] Date Dictated: 02/18/2532 Date Transcribed: 02/18/25 1448 Director Independent: Beltran [facility] Work Phone: Stress Reporton 02-18-2025 Stress Report [facility] [place] [address] MR#: [id number] Acct: [id number] Name: HANNAH LEBRON Rep #: [id number] : 1950 74 From: Amy Reid MD [...] of 47%. This note was generated with [employer] software. It may contain incorrect words, spelling, and punctuation that were not noted in checking the note before signing. 02/18/25 1340 Date Amy Reid MD CC: Dr. Amy Reid MD; Dr. Dawson Laguna MD Date Dictated: 02/18/251338 Date Transcribed: 02/18/251338 Director Independent: JUSTIN Signed Normal [facility] Anion gap in Serum or Plasma Ordered By: Amy Reid on 01-07-2025 Anion gap [Moles/Vol] 9 mmol/L - [facility] BUN/creatinine ratioOrdered By: Amy Reid on 01-07-2025 Urea nitrogen/Creatinine [Mass ratio] 12.6 mg/mg 10- [facility] Bilirubin, totalOrdered By: Amy Reid on 01-07-2025 Bilirubin [Mass/Vol] 1.98 mg/dL High 0.00-1.30 [facility] Carbon dioxide, total [Moles /volume] in Central venous bloodOrdered By: Amy Reid on 01-07-2025 CO2 [Moles/Vol] 25.0 mmol/L 21.0-32.0 [facility] Cardiology Visit Reporton Cardiology Visit Report [facility] [facility] [place] [address] OFFICE VISIT Date of Service: 01/07/25 MR#: [id number] Acct: [id number] Name: HANNAH LEBRON Rep #: [id number] : 1950 Provider: Dr. Amy Reid MD Age/Sex: 74/M Location: [facility] Status: Signed HPI HPI History [...] Source NIBP Intake Visit Reasons: Atrial fibrillation [employer] Required: No Accompanied by: Is patient in [...] (residual pain in L-Chest; s/p 2wk fall) [facility] Medical History Alcohol use Arthritis Atrial fibrillation [...] Status: Chron (more content not included)... Normal [facility] Chloride assayOrdered By: Justin Reid on 01-07-2025 Chloride [Moles/Vol] 105 mmol/L 98-108 [facility] Comprehensive Metabolic Prof ilon 01-07-2025 Albumin [Mass/Vol] 4.0 g/dL Normal 3.4-4.8 [facility] Comment on above: Performed By: #### L 500.4050, L501.20 #### [facility] [address] [place], [address] Albumin/Globulin [Mass ratio] 1.2 {ratio} Normal 0.9-2.4 [facility] Comment on above: Performed By: #### L 500.4050, L501.9520 #### [facility] [address] [place], [address] ALK PHOS 62 U/L Normal 40-129 [facility] Comment on above: Performed By: #### L 500.4050, L501.9520 #### [facility] [address] [place], [address] ALT [Catalytic activity/Vol] 17 U/L Normal <=46 [facility] Comment on above: Performed By: #### L 500.4050, L501.9520 #### [facility] [address] [place], [address] AST [Catalytic activity/Vol] 18 U/L Normal <=37 [facility] Comment on above: Performed By: #### L 500.4050, L501.9520 #### [facility] [address] [place], [address] Bilirubin [Mass/Vol] 1.98 mg/dL High 0.00-1.30 [facility] Comment on above: Performed By: #### L 500.4050, L501.9520 #### [facility] [address] [place], [address] BUN/CRE 12.6 RATIO Normal 10-20 [facility] Comment on above: Performed By: #### L 500.4050, L501.9520 #### [facility] [address] [place], [address] Calcium [Mass/Vol] 9.1 mg/dL Normal 7.6-11.0 [facility] Comment on above: Performed By: #### L 500.4050, L501.9520 #### [facility] [address] [place], [address] Chloride [Moles/Vol] 105 mmol/L Normal 98-108 [facility] Comment on above: Performed By: #### L 500.4050, L501.9520 #### [facility] [address] [place], [address] CO2 [Moles/Vol] 25.0 mmol/L Normal 21.0-32.0 [facility] Comment on above: Performed By: #### L 500.4050, L501.9520 #### [facility] [address] [place], [address] Creatinine [Mass/Vol] 0.80 mg/dL Normal 0.70-1.20 [facility] Comment on above: Performed By: #### L 500.4050, L501.9520 #### [facility] [address] [place], [address] GAP 9 Normal 5-15 [facility] Comment on above: Performed By: #### L 500.4050, L501.9520 #### [facility] [address] [place], [address] GFR/1.73 sq M.predicted among non-blacks MDRD (S/P/Bld) [Vol rate/Area] 93 mL/min/{1.73_m2} Normal >60 [facility] Comment on above: Result Comment: mL/m in/1.73m2 CKD-EPI Creatinine Equation (2020) Performed By: #### L 500.4050, L501.9520 #### [facility] [address] [place], [address] Globulin (S) [Mass/Vol] 3.2 g/dL Normal 2.2-4.2 [facility] Comment on above: Performed By: #### L 500.4050, L501.9520 #### [facility] [address] [place], [address] Glucose [Mass/Vol] 137 mg/dL High 70-99 [facility] Comment on above: Performed By: #### L 500.4050, L501.9520 #### [facility] [address] [place], [address] Potassium [Moles/Vol] 4.2 mmol/L Normal 3.3-5.1 [facility] Comment on above: Performed By: #### L 500.4050, L501.9520 #### [facility] [address] [place], [address] Sodium [Moles/Vol] 139 mmol/L Normal 133-145 [facility] Comment on above: Performed By: #### L 500.4050, L501.9520 #### [facility] [address] [place], [address] T PROT 7.2 g/dL Normal 5.9-8.4 [facility] Comment on above: Performed By: #### L 500.4050, L501.9520 #### [facility] [address] [place], [address] Urea nitrogen [Mass/Vol] 10 mg/dL Normal 4-19 [facility] Comment on above: Performed By: #### L 500.4050, L501.9520 #### [facility] [address] [place], [address] Glomerular filtration rate ( GFR) estimation/1.73 sq m using serum, plasma, or whole bOrdered By: Amy Reid on 01-07-2025 GFR/1.73 sq M.predicted among non-blacks MDRD (S/P/Bld) [Vol rate/Area] 93 mL/min/{1.73_m2} >60 [facility] Comment on above: mL/min/1.73m2 CKD-EP I Creatinine Equation (2020) Laboratory - Chemistry and C hemistry - challengeOrdered By: Amy Reid on 01-07-2025 AST [Catalytic activity/Vol] 18 U/L <38 [facility] Potassium measurement (mass/ volume)Ordered By: Amyelma Reid on 01-07-2025 Potassium (Unsp spec) [Mass/Vol] 4.2 mmol/L 3.3-5.1 [facility] Serum creatinine measurement (mass/volume)Ordered By: Amy Reid on 01-07-2025 Creatinine [Mass/Vol] 0.80 mg/dL 0.70-1.20 [facility] Serum globulin measurementOr dered By: Amy Reid on 01-07-2025 Globulin (S) [Mass/Vol] 3.2 g/dL 2.2-4.2 [facility] Serum glucose measurement (m ass/volume)Ordered By: Amy Reid on 01-07-2025 Glucose [Mass/Vol] 137 mg/dL High 70-99 [facility] Serum or plasma alanine gaming otransferase (ALT) measurementOrdered By: Amy Reid on 01-07-2025 ALT [Catalytic activity/Vol] 17 U/L <47 [facility] Serum or plasma albumin chiquis urement (mass/volume)Ordered By: Amy Reid on 01-07-2025 Albumin [Mass/Vol] 4.0 g/dL 3.4-4.8 [facility] Serum or plasma albumin/glob ulin mass ratioOrdered By: Amyelma Reid 01-07-2025 Albumin/Globulin [Mass ratio] 1.2 {ratio} 0.9-2.4 [facility] Serum or plasma alkaline kuldip sphatase measurementOrdered By: Amy Ried 01-07-2025 ALP [Catalytic activity/Vol] 62 U/L 40-129 [facility] Serum or plasma calcium chiquis urement (mass/volume)Ordered By: Amy Reid on 01-07-2025 Calcium [Mass/Vol] 9.1 mg/dL 7.6-11.0 [facility] Serum or plasma urea nitroge n measurement (mass/volume)Ordered By: Amy Reid on 01-07-2025 Urea nitrogen [Mass/Vol] 10 mg/dL 4-19 [facility] Sodium levelOrdered By: Hakan Reid on 01-07-2025 Sodium [Moles/Vol] 139 mmol/L 133-145 [facility] TSH DL <= 0.005 mIU/L QnOrde red By: Amy Reid on 01-07-2025 TSH Qn 1.030 uIU/mL 0.300-4.200 [facility] Thyroid Stim Hormone (TSH)on 01-07-2025 TSH 1.030 uIU/mL Normal 0.300-4.200 [facility] Comment on above: Performed By: #### L 500.4050, L501.9520 #### [facility] [address] [place], [place], [id number] Total proteinOrdered By: Bree Reid on 01-07-2025 Protein [Mass/Vol] 7.2 g/dL 5.9-8.4 [facility] Anion gap in Serum or Plasma Ordered By: Dawson Laguna on 12-17-2024 Anion gap [Moles/Vol] 10 mmol/L 01-07 [facility] BUN/creatinine ratioOrdered By: Dawson Laguna on 12-17-2024 Urea nitrogen/Creatinine [Mass ratio] 12.1 mg/mg 06-14 [facility] Basic Metabolic Profile (BMP )on 12-17-2024 BUN/CRE 12.1 RATIO Normal 06-14 [facility] Comment on above: Performed By: #### L 500.2500, L501.9985 #### [facility] [address] [place], [place], [id number] Calcium [Mass/Vol] 9.0 mg/dL Normal 7.6-11.0 [facility] Comment on above: Performed By: #### L 500.2500, L501.9985 #### [facility] [address] [place], [address] Chloride [Moles/Vol] 105 mmol/L Normal 98-108 [facility] Comment on above: Performed By: #### L 500.2500, L501.9985 #### [facility] [address] [place], [address] CO2 [Moles/Vol] 23.6 mmol/L Normal 21.0-32.0 [facility] Comment on above: Performed By: #### L 500.2500, L501.9985 #### [facility] [address] [place], [address] Creatinine [Mass/Vol] 0.78 mg/dL Normal 0.70-1.20 [facility] Comment on above: Performed By: #### L 500.2500, L501.9985 #### [facility] [address] [place], [address] GAP 10 Normal 5-15 [facility] Comment on above: Performed By: #### L 500.2500, L501.9985 #### [facility] [address] [place], [address] GFR/1.73 sq M.predicted among non-blacks MDRD (S/P/Bld) [Vol rate/Area] 94 mL/min/{1.73_m2} Normal >60 [facility] Comment on above: Result Comment: mL/m in/1.73m2 CKD-EPI Creatinine Equation (2020) Performed By: #### L 500.2500, L501.9985 #### [facility] [address] [place], [address] Glucose [Mass/Vol] 113 mg/dL High 70-99 [facility] Comment on above: Performed By: #### L 500.2500, L501.9985 #### [facility] [address] [place], [address] Potassium [Moles/Vol] 4.0 mmol/L Normal 3.3-5.1 [facility] Comment on above: Performed By: #### L 500.2500, L501.9985 #### [facility] [address] [place], [address] Sodium [Moles/Vol] 139 mmol/L Normal 133-145 [facility] Comment on above: Performed By: #### L 500.2500, L501.9985 #### [facility] [address] [place], [address] Urea nitrogen [Mass/Vol] 9 mg/dL Normal 4-19 [facility] Comment on above: Performed By: #### L 500.2500, L501.9985 #### [facility] [address] [place], [address] Carbon dioxide, total [Moles /volume] in Central venous bloodOrdered By: Dawson Laguna on 12-17-2024 CO2 [Moles/Vol] 23.6 mmol/L 21.0-32.0 [facility] Chloride assayOrdered By: Ben Laguna on 12-17-2024 Chloride [Moles/Vol] 105 mmol/L 98-108 [facility] Glomerular filtration rate ( GFR) estimation/1.73 sq m using serum, plasma, or whole bOrdered By: Dawson Laguna on 12-17-2024 GFR/1.73 sq M.predicted among non-blacks MDRD (S/P/Bld) [Vol rate/Area] 94 mL/min/{1.73_m2} >60 [facility] Comment on above: mL/min/1.73m2 CKD-EP I Creatinine Equation (2020) Hemoglobin A1con 12-17-2024 HbA1c (Bld) [Mass fraction] 6.4 % High <=5.6 [facility] Comment on above: Result Comment: Norm al < 5.7 % Prediabetic 5.7 - 6.4 % Diabetic >or= 6.5 % Please note range changes. Performed By: #### L 500.2500, L501.9985 ####[facility] [address] [place], [place], [id number] Hemoglobin A1c percentageOrd ered By: Dawson Laguna on 12-17-2024 HbA1c (Bld) [Mass fraction] 6.4 % High <5.7 [facility] Comment on above: Normal < 5.7 % Predi abetic 5.7 - 6.4 % Diabetic >or= 6.5 % Please note range changes. Potassium measurement (mass/ volume)Ordered By: Dawson Laguna on 12-17-2024 Potassium (Unsp spec) [Mass/Vol] 4.0 mmol/L 3.3-5.1 [facility] Serum creatinine measurement (mass/volume)Ordered By: Dawson Laguna on 12-17-2024 Creatinine [Mass/Vol] 0.78 mg/dL 0.70-1.20 [facility] Serum glucose measurement (m ass/volume)Ordered By: Dawson Laguna on 12-17-2024 Glucose [Mass/Vol] 113 mg/dL High 70-99 [facility] Serum or plasma calcium chiquis urement (mass/volume)Ordered By: Dawson Laguna on 12-17-2024 Calcium [Mass/Vol] 9.0 mg/dL 7.6-11.0 [facility] Serum or plasma urea nitroge n measurement (mass/volume)Ordered By: Dawson Laguna on 12-17-2024 Urea nitrogen [Mass/Vol] 9 mg/dL 4-19 [facility] Sodium levelOrdered By: Dawson Laguna on 12-17-2024 Sodium [Moles/Vol] 139 mmol/L 133-145 [facility] Knee 3 Viewson 10-28-2024 Knee 3 Views [facility] [address] [place], [place] [address] Knee 3 Views MR#: [id number] Acct: [id number] Name: HANNAH LEBRON Rep #: [id number] : 1950 M 74 From: Herber horvath MD PCP: Dr. Dawson Laguna MD Status: DEP AMB Study: Knee 3 Views Date of Exam: 10/28/24 Exam# [id number] Ordering Dr: Jim Whelan DO PROCEDURE: KNEE [...] 3 Views IMPRESSION: Stable examination. Reading Location: [id number] CC: Dr. Jim Whealn DO; Dr. Dawson Laguna MD Director Independent: Signed Normal [facility] Orthopedic Visit Reporton Orthopedic Visit Report [facility] [address] [place] [address] OFFICE VISIT Date of Service: 10/28/24 MR#: [id number] Acct: [id number] Name: HANNAH LEBRON Rep #: [id number] : 1950 Provider: Dr. Jim chaudhari DO Age/Sex: 74/M Location: [facility] Status: Signed Intake Vital Signs [...] more phys (more content not included)... Normal [facility] BUN/creatinine ratioOrdered By: Dawson Laguna on 10-21-2024 Urea nitrogen/Creatinine [Mass ratio] 11.1 mg/mg 10-20 [facility] Bilirubin, totalOrdered By: Dawson Laguna on 10-21-2024 Bilirubin [Mass/Vol] 1.19 mg/dL 0.00-1.30 [facility] Calculated very low density lipoprotein (VLDL) cholesterol measurementOrdered By: Dawson Laguna on 10-21-2024 Calculated very low density lipoprotein (VLDL) cholesterol measurement 67 mg/dL High 5-40 [facility] VLDL Cholesterol 67 mg/dL High 5-40 [facility] Carbon dioxide measurementOr dered By: Dawson Laguna on 10-21-2024 CO2 [Moles/Vol] 23.8 mmol/L 22.0-29.0 [facility] Chloride measurementOrdered By: Dawson Laguna on 10-21-2024 Chloride [Moles/Vol] 105 mmol/L 96-108 [facility] Comprehensive Metabolic Prof ilon 10-21-2024 Albumin [Mass/Vol] 4.0 g/dL Normal 3.4-4.8 [facility] Comment on above: Performed By: #### L 500.4050, L500.4100, L501.9910 ####[facility] [address] [place], [address] Albumin/Globulin [Mass ratio] 1.2 {ratio} Normal 0.9-2.4 [facility] Comment on above: Performed By: #### L 500.4050, L500.4100, L501.9910 ####[facility] [address] [place], [address] ALK PHOS 58 U/L Normal 40-129 [facility] Comment on above: Performed By: #### L 500.4050, L500.4100, L501.9910 ####[facility] [address] [place], [address] ALT [Catalytic activity/Vol] 14 U/L Normal <=46 [facility] Comment on above: Performed By: #### L 500.4050, L500.4100, L501.9910 ####[facility] [address] [place], [address] Anion gap [Moles/Vol] 10 mmol/L Normal 5-15 [facility] Comment on above: Performed By: #### L 500.4050, L500.4100, L501.9910 ####[facility] [address] [place], [address] AST [Catalytic activity/Vol] 21 U/L Normal <=37 [facility] Comment on above: Performed By: #### L 500.4050, L500.4100, L501.9910 ####[facility] [address] [place], [address] Bilirubin [Mass/Vol] 1.19 mg/dL Normal 0.00-1.30 [facility] Comment on above: Performed By: #### L 500.4050, L500.4100, L501.9910 ####[facility] [address] [place], [address] BUN/CRE 11.1 RATIO Normal 10-20 [facility] Comment on above: Performed By: #### L 500.4050, L500.4100, L501.9910 ####[facility] [address] [place], [address] Calcium [Mass/Vol] 9.2 mg/dL Normal 7.6-11.0 [facility] Comment on above: Performed By: #### L 500.4050, L500.4100, L501.9910 ####[facility] [address] [place], [address] Chloride [Moles/Vol] 105 mmol/L Normal 96-108 [facility] Comment on above: Performed By: #### L 500.4050, L500.4100, L501.9910 ####[facility] [address] [place], [address] CO2 [Moles/Vol] 23.8 mmol/L Normal 22.0-29.0 [facility] Comment on above: Performed By: #### L 500.4050, L500.4100, L501.9910 ####[facility] [address] [place], [address] Creatinine [Mass/Vol] 0.8 mg/dL Normal 0.8-1.3 [facility] Comment on above: Performed By: #### L 500.4050, L500.4100, L501.9910 ####[facility] [address] [place], [address] GFR/1.73 sq M.predicted among non-blacks MDRD (S/P/Bld) [Vol rate/Area] 92 mL/min/{1.73_m2} Normal >60 [facility] Comment on above: Result Comment: mL/m in/1.73m2 CKD-EPI Creatinine Equation (2020) Performed By: #### L 500.4050, L500.4100, L501.9910 ####[facility] [address] [place], [address] Globulin (S) [Mass/Vol] 3.3 g/dL Normal 2.2-4.2 [facility] Comment on above: Performed By: #### L 500.4050, L500.4100, L501.9910 ####[facility] [address] [place], [address] Glucose [Mass/Vol] 113 mg/dL High 70-99 [facility] Comment on above: Performed By: #### L 500.4050, L500.4100, L501.9910 ####[facility] [address] [place], [address] Potassium [Moles/Vol] 4.3 mmol/L Normal 3.3-5.1 [facility] Comment on above: Performed By: #### L 500.4050, L500.4100, L501.9910 ####[facility] [address] [place], [address] Sodium [Moles/Vol] 139 mmol/L Normal 133-145 [facility] Comment on above: Performed By: #### L 500.4050, L500.4100, L501.9910 ####[facility] [address] [place], [address] T PROT 7.3 g/dL Normal 5.9-8.4 [facility] Comment on above: Performed By: #### L 500.4050, L500.4100, L501.9910 ####[facility] [address] [place], [address] Urea nitrogen [Mass/Vol] 9 mg/dL Normal 4-19 [facility] Comment on above: Performed By: #### L 500.4050, L500.4100, L501.9910 ####[facility] [address] [place], [address] GFR/1.73 sq M.predicted radha g non-blacks MDRD (S/P/Bld) [Vol rate/Area]Ordered By: Dawson Laguna on 10-21-2024 Estimated GFR (MDRD) Non-Af Amer 92 >60 [facility] Comment on above: mL/min/1.73m2 CKD-EP I Creatinine Equation (2020) Glomerular filtration rate ( GFR) estimation/1.73 sq m using serum, plasma, or whole bOrdered By: Dawson Laguna on 10-21-2024 GFR/1.73 sq M.predicted among non-blacks MDRD (S/P/Bld) [Vol rate/Area] 92 mL/min/{1.73_m2} >60 [facility] Comment on above: mL/min/1.73m2 CKD-EP I Creatinine Equation (2020) LDL calc ser/plasOrdered By: Dawson Laguna on 10-21-2024 Cholesterol in LDL [Mass/Vol] 82 mg/dL [facility] Comment on above: Ivmakxfjaw=191-816 m g/dL & Higher Ever=832 mg/dL or greater LDL Cholesterol, Calculated 82 mg/dL [facility] Comment on above: Zazeuqnbxv=928-884 m g/dL & Higher Lths=564 mg/dL or greater Laboratory - Chemistry and C hemistry - challengeOrdered By: Dawson Laguna on 10-21-2024 AST [Catalytic activity/Vol] 21 U/L <38 [facility] Lipid Profileon 10-21-2024 CHOL:HDL 6.98 Normal [facility] Comment on above: Performed By: #### L 500.4050, L500.4100, L501.9910 ####[facility] [address] [place], [address] Cholesterol [Mass/Vol] 173 mg/dL Normal <=200 [facility] Comment on above: Result Comment: Chol esterol level, Desirable <200 mg/dL Borderline high cholesterol 200-239 mg/dL High cholesterol >=240 mg/dL Recommendations of the NCEP Adult Treatment Panel for the following risk-cutoff thresholds for the [place] population. Performed By: #### L 500.4050, L500.4100, L501.9910 ####[facility] [address] [place], [address] Cholesterol in HDL [Mass/Vol] 25 mg/dL Low [facility] Comment on above: Result Comment: Robyn onal Cholesterol Education Program (NCEP) guidelines: <40 mg/dL: Low HDL-cholesterol (major risk factor for CHD) >= 60 mg/dL: High HDL-cholesterol (negative risk factor for CHD) HDL-cholesterol is affected by a number of factors, e.g. smoking, exercise, hormones, sex and age. Performed By: #### L 500.4050, L500.4100, L501.9910 ####[facility] [address] [place], [address] Cholesterol in LDL [Mass/Vol] 82 mg/dL Normal [facility] Comment on above: Result Comment: Bord poanys=813-775 mg/dL Higher Hbep=705 mg/dL or greater Performed By: #### L 500.4050, L500.4100, L501.9910 ####[facility] [address] [place], [address] Cholesterol in VLDL [Mass/Vol] 67 mg/dL High 5-40 [facility] Comment on above: Performed By: #### L 500.4050, L500.4100, L501.9910 ####[facility] [address] [place], [address] Triglyceride [Mass/Vol] 333 mg/dL High [facility] Comment on above: Result Comment: The drugs N-Acetylcysteine and Metamizole may falsely depress this assay. Normal range: <150 mg/dL Borderline High: 150-199 mg/dL High: 200-499 mg/dL Very High: >500 mg/dL Performed By: #### L 500.4050, L500.4100, L501.9910 ####[facility] [address] [place], [place], [address] PSA, total screeningOrdered By: Dawson Laguna on 10-21-2024 Prostate Specific Antigen Screen 6.42 ng/mL High 0.02-4.00 [facility] Comment on above: This test was perfor med using the [employer] tPSA method. Measured values of a patient sample can vary depending on the testing procedure used. PSA values determined on patient samples by different testing procedures cannot be used interchangeably. If there is a change in PSA assays while monitoring therapy, sequential testing should be performed to confirm baseline values. PSA,Total - Annual Screenon 10-21-2024 PSA,TOT SCREEN 6.42 ng/mL High 0.02-4.00 [facility] Comment on above: Result Comment: This test was performed using the [employer] tPSA method. Measured values of a patient??sample can vary depending on the testing procedure used. PSA values determined on patient samples by different testing procedures cannot be used interchangeably. If there is a change in PSA assays while monitoring therapy, sequential testing should be performed to confirm baseline values. Performed By: #### L 500.4050, L500.4100, L501.9910 ####[facility] [address] [place], [place], [id number] Screening total cholesterol/ high density lipoprotein (HDL) cholesterol ratioOrdered By: Dawson Laguna on 10-21-2024 Cholesterol.total/Zo sterol in HDL [Mass ratio] 6.98 {ratio} [facility] Serum creatinine measurement (mass/volume)Ordered By: Dawson Laguna on 10-21-2024 Creatinine [Mass/Vol] 0.8 mg/dL 0.70-1.20 [facility] Serum globulin measurementOr dered By: Dawson Laguna on 10-21-2024 Globulin (S) [Mass/Vol] 3.3 g/dL 2.2-4.2 [facility] Serum glucose measurement (m ass/volume)Ordered By: Dawson Laguna on 10-21-2024 Glucose [Mass/Vol] 113 mg/dL High 70-99 [facility] Serum or plasma alanine gaming otransferase (ALT) measurementOrdered By: Dawson Laguna on 10-21-2024 ALT [Catalytic activity/Vol] 14 U/L <47 [facility] Serum or plasma albumin chiquis urement (mass/volume)Ordered By: Dawson Laguna on 10-21-2024 Albumin [Mass/Vol] 4.0 g/dL 3.4-4.8 [facility] Serum or plasma albumin/glob ulin mass ratioOrdered By: Dawson Laguna on 10-21-2024 Albumin/Globulin [Mass ratio] 1.2 {ratio} 0.9-2.4 [facility] Serum or plasma alkaline kuldip sphatase measurementOrdered By: Dawson Laguna on 10-21-2024 ALP [Catalytic activity/Vol] 58 U/L 40-129 [facility] Serum or plasma anion gap de termination (moles/volume)Ordered By: Dawson Laguna on 10-21-2024 Anion gap [Moles/Vol] 10 mmol/L 5-15 [facility] Serum or plasma calcium chiquis urement (mass/volume)Ordered By: Dawson Laguna on 10-21-2024 Calcium [Mass/Vol] 9.2 mg/dL 7.6-11.0 [facility] Serum or plasma cholesterol in HDL measurement (mass/volume)Ordered By: Dawson Laguna on 10-21-2024 Cholesterol in HDL [Mass/Vol] 25 mg/dL Low >40 [facility] Comment on above: National Cholesterol Education Program (NCEP) guidelines:<40 mg/dL: Low HDL-cholesterol (major risk factor for CHD)>= 60 mg/dL: High HDL-cholesterol (negative risk factor for CHD)HDL-cholesterol is affected by a number of factors, e.g. smoking, exercise, hormones, sex and age. Serum or plasma cholesterol measurement (mass/volume)Ordered By: Dawson Laguna on 10-21-2024 Cholesterol [Mass/Vol] 173 mg/dL <201 [facility] Comment on above: Cholesterol level, D esirable <200 mg/dLBorderline high cholesterol 200-239 mg/dLHigh cholesterol >=240 mg/dLRecommendations of the NCEP Adult Treatment Panel for the following risk-cutoff thresholds for the [place] population. Serum or plasma potassium me asurementOrdered By: Dawson Laguna on 10-21-2024 Potassium [Moles/Vol] 4.3 mmol/L 3.3-5.1 [facility] Serum or plasma sodium measu rement (moles/volume)Ordered By: Dawson Laguna on 10-21-2024 Sodium [Moles/Vol] 139 mmol/L 133-145 [facility] Serum or plasma urea nitroge n measurement (mass/volume)Ordered By: Dawson Laguna on 10-21-2024 Urea nitrogen [Mass/Vol] 9 mg/dL 4-19 [facility] Total proteinOrdered By: Barb Laguna on 10-21-2024 Protein [Mass/Vol] 7.3 g/dL 5.9-8.4 [facility] Triglycerides measurementOrd ered By: Dawson Laguna on 10-21-2024 Triglyceride [Mass/Vol] 333 mg/dL High <199 [facility] Comment on above: The drugs N-Acetylcy steine and Metamizole may falsely depress this assay. Normal range: <150 mg/dLBorderline High: 150-199 mg/dLHigh: 200-499 mg/dLVery High: >500 mg/dL Basophil percentageOrdered B y: Dawson Laguna on 11-07-2023 Chloride [Moles/Vol] 110 mmol/L 98-107 [facility] Cholesterol [Mass/Vol] 173 mg/dL <200 [facility] Comment on above: <200 mg/dL Desirable 200-240 mg/dL Borderline >240 mg/dL High Risk Glucose [Mass/Vol] 121 mg/dL 74-106 [facility] Comment on above: Fasting Glucose resu lt from 100 to 125 mg/dL suggests IMPAIRED HOMEOSTASIS per A.D.A. criteria. Potassium [Moles/Vol] 4.0 mmol/L 3.5-5.1 [facility] Sodium [Moles/Vol] 140 mmol/L 136-145 [facility] Triglyceride [Mass/Vol] 336 mg/dL <199 [facility] Comment on above: The drugs N-Acetylcy steine and Metamizole may falsely depress this assay.Serum Triglycerides Reference Interval Normal <150 mg/dL Borderline high 150 - 199 mg/dL High 200 - 499 mg/dL Very High > or = 500 mg/dL Laboratory - Chemistry and C hemistry - challengeOrdered By: Dawson Laguna on 11-07-2023 Cholesterol in HDL [Mass/Vol] 28 mg/dL >40 [facility] Comment on above: The drugs N-Acetylcy steine and Metamizole may falsely depress this assay. Reference Range HDL <40 mg/dL Low HDL Cholesterol HDL >or= 60 mg/dL High HDL Cholesterol Cholesterol in LDL [Mass/Vol] 78 mg/dL 0-130 [facility] CO2 [Moles/Vol] 26.0 mmol/L 21.0-32.0 [facility] Urea nitrogen/Creatinine [Mass ratio] 16.4 mg/mg 10-20 [facility] No Panel InformationOrdered By: Dawson Laguna on 11-07-2023 Estimated GFR (MDRD) Amer 136 mL/min >60 [facility] Comment on above: GFR Calc Estimated GFR (MDRD) Non-Af Amer 112 mL/min >60 [facility] Comment on above: Non- GFR Calc Prostate Specific Antigen Screen 6.71 ng/mL 0.00-4.00 [facility] Comment on above: This test was perfor med using the TPSA assay method for the[facility]. Values obtained with differentassay methods cannot be used interchangably.When changing PSA assays in the course of monitoring apatient, additional sequential testing should be carriedout to confirm baseline values. VLDL Cholesterol 67 mg/dL 5-40 [facility] Serum or plasma calcium chiquis urement (mass/volume)Ordered By: Dawson Laguna on 11-07-2023 Calcium [Mass/Vol] 9.0 mg/dL 8.5-10.1 [facility] Serum or plasma creatinine m easurement (mass/volume)Ordered By: Dawson Laguna on 11-07-2023 Creatinine [Mass/Vol] 0.73 mg/dL 0.70-1.30 [facility] Comment on above: The validity of the calculated GFR & GFRAA in patients over 70 years has not been determined. Clinical correlation is essential. Serum or plasma urea nitroge n measurement (mass/volume)Ordered By: Dawson Laguna on 11-07-2023 Urea nitrogen [Mass/Vol] 12 mg/dL 7-18 [facility] Thin prep Papanicolaou smear with manual screeningOrdered By: Dawson Laguna on 11-07-2023 Thin prep Papanicolaou smear with manual screening 4 5-15 [facility] Absolute lymphocyte counton 04-26-2022 Lymphocytes Auto (Unsp spec) [#/Vol] 2.20 10*3/uL 0.83-4.51 [facility] Work Phone: Basophil percentageon 2021 Basophils/100 WBC (Bld) 0.5 % 0-1 [facility] Work Phone: [phone] Eosinophils/100 WBC (Bld) 2.4 % 0-5 [facility] Work Phone: [phone] Neutrophils (Bld) [#/Vol] 2.9 10*3/uL 2.0-7.7 [facility] Work Phone: Neutrophils/100 WBC (Bld) 50.1 % 47-70 [facility] Work Phone: [phone] WBC (Bld) [#/Vol] 5.8 10*3/uL 4.4-11.0 [facility] Work Phone: Blood erythrocytes count (nu mber/volume)on 04-26-2022 RBC (Bld) [#/Vol] 4.42 10*6/uL 4.6-6.2 [facility] Work Phone: Blood hemoglobin measurement (mass/volume)on 04-26-2022 Hemoglobin (Bld) [Mass/Vol] 13.3 g/dL 13.0-16.5 [facility] Work Phone: Blood lymphocytes/100 leukoc yteson 04-26-2022 Lymphocytes/100 WBC (Bld) 38.1 % 19-41 [facility] Work Phone: Blood monocytes/100 leukocyt eson 04-26-2022 Monocytes/100 WBC (Bld) 8.7 % 0-10 [facility] Work Phone: Blood platelet mean volumeon 04-26-2022 Platelet mean volume (Bld) [Entitic vol] 11.1 fL 6.2-12.0 [facility] Work Phone: Determination of erythrocyte mean corpuscular volume (MCV)on 04-26-2022 MCV (RBC) [Entitic vol] 86.9 fL 80-94 [facility] Work Phone: Hematocrit Auto (Bld) [Volum e fraction]on 04-26-2022 Hematocrit (Bld) [Volume fraction] 38.4 % 40-54 [facility] Work Phone: Laboratory - Hematology and Cell countson 04-26-2022 Erythrocyte distribution width (RBC) [Entitic vol] 40.7 fL 35.1-43.9 [facility] Work Phone: Erythrocyte distribution width (RBC) [Ratio] 12.9 % 11.6-14.6 [facility] Work Phone: Immature granulocytes/100 WBC (Bld) 0.200 % 0.0-0.9 [facility] Work Phone: Comment on above: IG% - Immature Granu locytes (promyelocytes, myelocytes and metamyelocytes) > 1% indicates that a LEFT SHIFT is Present. MCH (RBC) [Entitic mass] 30.1 pg 27.0-32.0 [facility] Work Phone: Nucleated RBC/100 WBC (Bld) [Ratio] 0 % 0-5 [facility] Work Phone: MCHC Auto (RBC) [Mass/Vol]on 04-26-2022 MCHC (RBC) [Mass/Vol] 34.6 g/dL 32-36 [facility] Work Phone: Platelets bldon 04-26-2022 Platelets (Bld) [#/Vol] 176 10*3/uL 150-450 [facility] Work Phone: Basophil percentageon 2021 Chloride [Moles/Vol] 106 mmol/L 98-107 [facility] Work Phone: Glucose [Mass/Vol] 170 mg/dL 74-106 [facility] Work Phone: Comment on above: Fasting Glucose resu lt greater than or equal to 126 mg/dL suggests DIABETES MELLITUS per A.D.A. criteria. Potassium [Moles/Vol] 3.8 mmol/L 3.5-5.1 [facility] Work Phone: Sodium [Moles/Vol] 139 mmol/L 136-145 [facility] Work Phone: WBC (Bld) [#/Vol] 9.3 10*3/uL 4.4-11.0 [facility] Work Phone: Blood erythrocytes count (nu mber/volume)on 01-03-2022 RBC (Bld) [#/Vol] 3.72 10*6/uL 4.6-6.2 [facility] Work Phone: Blood hemoglobin measurement (mass/volume)on 01-03-2022 Hemoglobin (Bld) [Mass/Vol] 11.3 g/dL 13.0-16.5 [facility] Work Phone: Blood platelet mean volumeon 01-03-2022 Platelet mean volume (Bld) [Entitic vol] 11.3 fL 6.2-12.0 [facility] Work Phone: Determination of erythrocyte mean corpuscular volume (MCV)on 01-03-2022 MCV (RBC) [Entitic vol] 89.5 fL 80-94 [facility] Work Phone: Hematocrit Auto (Bld) [Volum e fraction]on 01-03-2022 Hematocrit (Bld) [Volume fraction] 33.3 % 40-54 [facility] Work Phone: Laboratory - Chemistry and C hemistry - challengeon 01-03-2022 CO2 [Moles/Vol] 27.0 mmol/L 21.0-32.0 [facility] Work Phone: Urea nitrogen/Creatinine [Mass ratio] 18.0 mg/mg 10-20 [facility] Work Phone: Laboratory - Hematology and Cell countson 01-03-2022 Erythrocyte distribution width (RBC) [Entitic vol] 39.2 fL 35.1-43.9 [facility] Work Phone: Erythrocyte distribution width (RBC) [Ratio] 12.0 % 11.6-14.6 [facility] Work Phone: MCH (RBC) [Entitic mass] 30.4 pg 27.0-32.0 [facility] Work Phone: MCHC Auto (RBC) [Mass/Vol]on 01-03-2022 MCHC (RBC) [Mass/Vol] 33.9 g/dL 32-36 [facility] Work Phone: No Panel Informationon 01-03 Estimated Creatinine Clearance Calc 64.26 ml/min [facility] Work Phone: Estimated GFR (MDRD) Amer 138 mL/min >60 [facility] Work Phone: Comment on above: GFR Calc Estimated GFR (MDRD) Non-Af Amer 114 mL/min >60 [facility] Work Phone: Comment on above: Non- GFR Calc Platelets bldon 01-03-2022 Platelets (Bld) [#/Vol] 130 10*3/uL 150-450 [facility] Work Phone: Serum or plasma calcium chiquis urement (mass/volume)on 01-03-2022 Calcium [Mass/Vol] 8.2 mg/dL 8.5-10.1 [facility] Work Phone: Serum or plasma creatinine m easurement (mass/volume)on 01-03-2022 Creatinine [Mass/Vol] 0.72 mg/dL 0.70-1.30 [facility] Work Phone: Comment on above: The validity of the calculated GFR & GFRAA in patients over 70 years has not been determined. Clinical correlation is essential. Serum or plasma urea nitroge n measurement (mass/volume)on 01-03-2022 Urea nitrogen [Mass/Vol] 13 mg/dL 7-18 [facility] Work Phone: Thin prep Papanicolaou smear with manual screeningon 01-03-2022 Thin prep Papanicolaou smear with manual screening 6 5-15 [facility] Work Phone: Glucose Glucometer (BldC) [M ass/Vol]on 01-02-2022 Glucose [Mass/Vol] 121 mg/dL 74-106 [facility] Work Phone: Comment on above: MANAGEMENT OF PATIEN T CARE PER NURSING PROTOCOL Absolute lymphocyte counton 12-21-2021 Lymphocytes Auto (Unsp spec) [#/Vol] 1.68 10*3/uL 0.83-4.51 [facility] Work Phone: Basophil percentageon 2021 Basophils/100 WBC (Bld) 0.6 % 0-1 [facility] Work Phone: Eosinophils/100 WBC (Bld) 2.2 % 0-5 [facility] Work Phone: Neutrophils (Bld) [#/Vol] 2.5 10*3/uL 2.0-7.7 [facility] Work Phone: Neutrophils/100 WBC (Bld) 51.5 % 47-70 [facility] Work Phone: Blood lymphocytes/100 leukoc yteson 12-21-2021 Lymphocytes/100 WBC (Bld) 34.3 % 19-41 [facility] Work Phone: Blood monocytes/100 leukocyt eson 12-21-2021 Monocytes/100 WBC (Bld) 11.2 % 0-10 [facility] Work Phone: INR in Blood by Coagulation assayon 12-21-2021 INR Coag (Bld) [Relative time] 1.1 {INR} [facility] Work Phone: Laboratory - Chemistry and C hemistry - challengeon 12-21-2021 Magnesium [Mass/Vol] 1.9 mg/dL 1.6-2.6 [facility] Work Phone: Laboratory - Coagulationon 0 12-21-2021 aPTT Coag (Bld) [Time] 28.5 s 24.1-36.2 [facility] Work Phone: PT Coag (PPP) [Time] 13.4 s 11.7-14.9 [facility] Work Phone: Laboratory - Hematology and Cell countson 12-21-2021 Immature granulocytes/100 WBC (Bld) 0.200 % 0.0-0.9 [facility] Work Phone: Comment on above: IG% - Immature Granu locytes (promyelocytes, myelocytes and metamyelocytes) > 1% indicates that a LEFT SHIFT is Present. Nucleated RBC/100 WBC (Bld) [Ratio] 0 % 0-5 [facility] Work Phone: No Panel Informationon 12-21 Fructosamine 229 umol/L 0-285 [facility] Work Phone: Comment on above: Published reference interval for apparently healthysubjects between age 20 and 60 is 205 - 285 umol/L and in apoorly controlled diabetic population is 228 - 563 umol/Lwith a mean of 396 umol/L.Performed at: [address] [id number] Director: Brodie Kirby PhD, Phone: [phone] Nasal Screen MRSA/MSSA [facility] Work Phone: Laboratory - Microbiology an d Antimicrobial susceptibilityon 12-03-2021 S. pyogenes Ag IA Ql (Unsp spec) Negative [facility] Work Phone: CNOVon 08-23-2019 CNOV Office Visit (UCWSTR ) HANNAH LEBRON ([id number]) 1950 M Date Time Provider Department 08/23/19 [...] Ford PA-C 08/23/2019 12:52 PM Signed [facility] [address] [place], [place] [address] Emergency Department Diagnosis: Assessment ACUTE BRONCHITIS: You [...] (None) Other instructions from your clinician: [facility] [address] [place], [place] [address] Emergency Department Diagnosis: Assessment ACUTE BRONCHITIS: You [...] Encounter Status:Closed by BRIANNA FORD on 08/23/19 [facility] PROGRESSon 08-23-2019 PROGRESS HNO ID: [id number] Author: Brianna (Ben) Cristofer Service: ? Author Type: Physician Smoking Pipe Coater Type: Progress Notes Filed: 08/23/2019 1:00 PM [...] issues and agrees with the plan. Brianna oFrd PA-C Normal [facility] No Panel Information Nasal Screen MRSA/MSSA [facility] Work Phone: Vital Signs Date Time Vital Sign Value Performing Clinician Faci lity 01-07-2025 08:36-0400 Body height 170.[address] Dawson Laguna MD Work Phone: [facility] 01-07-2025 08:36-0400 Body mass index (BMI) [Ratio] 37.9 kg/m2 Dr. Dawson Laguna MD Work Phone: [facility] 01-07-2025 08:36-0400 Body weight 109.[address] Dawson Laguna MD Work Phone: [facility] 01-07-2025 08:36-0400 Diastolic blood pressure 83 mm[Hg] Dr. Dawson Laguna MD Work Phone: [facility] 01-07-2025 08:36-0400 Heart rate 67 /min Dr. Dawson Laguna MD Work Phone: [facility] 01-07-2025 08:36-0400 Respiratory rate 20 /min Dr. Dawson Laguna MD Work Phone: [facility] 01-07-2025 08:36-0400 Systolic blood pressure 118 mm[Hg] Dr. Dawson Laguna MD Work Phone: [facility] 10-28-2024 11:10-0500 Body height 170.[address] Dawson Laguna MD Work Phone: [facility] 10-28-2024 11:10-0500 Body mass index (BMI) [Ratio] 38 kg/m2 Dr. Dawson Laguna MD Work Phone: [facility] 10-28-2024 11:10-0500 Body weight 109.[address] Dawson Laguna MD Work Phone: [facility] 02-13-2022 15:55-0400 Body temperature 97.4 [degF] Dr. Dawson Laguna Work Phone: [facility] Work Phone: 02-13-2022 15:55-0400 Diastolic blood pressure 56 mm[Hg] Dr. Dawson Laguna Work Phone: [facility] Work Phone: 02-13-2022 15:55-0400 Heart rate 64 /min Dr. Dawson Laguna Work Phone: [facility] Work Phone: 02-13-2022 15:55-0400 Respiratory rate 16 /min Dr. Dawson Laguna Work Phone: [facility] Work Phone: 02-13-2022 15:55-0400 SaO2% (BldA) [Mass fraction] 99 % Dr. Dawson Laguna Work Phone: [facility] Work Phone: 02-13-2022 15:55-0400 Systolic blood pressure 127 mm[Hg] Dr. Dawson Laguna Work Phone: [facility] Work Phone: 02-13-2022 12:07-0400 Body height 170.[address] Dawson Laguna Work Phone: [facility] Work Phone: 02-13-2022 12:07-0400 Body mass index (BMI) [Ratio] 38.7 kg/m2 Dr. Dawson Laguna Work Phone: [facility] Work Phone: 02-13-2022 12:07-0400 Body weight 112.[address] Dawson Laguna Work Phone: [facility] Work Phone: 01-03-2022 12:57-0400 Body temperature 97.9 [degF] Dr. Dawson Laguna Work Phone: [facility] Work Phone: 01-03-2022 12:57-0400 Diastolic blood pressure 68 mm[Hg] Dr. Dawson Laguna Work Phone: [facility] Work Phone: 01-03-2022 12:57-0400 Heart rate 59 /min Dr. Dawson Laguna Work Phone: [facility] Work Phone: 01-03-2022 12:57-0400 Respiratory rate 18 /min Dr. Dawson Laguna Work Phone: [facility] Work Phone: 01-03-2022 12:57-0400 SaO2% (BldA) [Mass fraction] 97 % Dr. Dawson Laguna Work Phone: [facility] Work Phone: 01-03-2022 12:57-0400 Systolic blood pressure 116 mm[Hg] Dr. Dawson Laguna Work Phone: [facility] Work Phone: 01-03-2022 08:04-0400 Inhaled oxygen flow rate 4 L/min Dr. Dawson Laguna Work Phone: [facility] Work Phone: 01-02-2022 07:12-0400 Body height 170.[address] Dawson Laguna Work Phone: [facility] Work Phone: 01-02-2022 07:12-0400 Body mass index (BMI) [Ratio] 38.6 kg/m2 Dr. Dawson Laguna Work Phone: [facility] Work Phone: 01-02-2022 07:12-0400 Body weight 111.[address] Dawson Laguna Work Phone: [facility] Work Phone: 12-03-2021 12:16-0400 Body temperature 97.2 [degF] Dr. Dawson Laguna Work Phone: [facility] Work Phone: 12-03-2021 12:16-0400 Diastolic blood pressure 80 mm[Hg] Dr. Dawson Laguna Work Phone: [facility] Work Phone: 12-03-2021 12:16-0400 Heart rate 72 /min Dr. Dawson Laguna Work Phone: [facility] Work Phone: 12-03-2021 12:16-0400 Respiratory rate 15 /min Dr. Dawson Laguna Work Phone: [facility] Work Phone: 12-03-2021 12:16-0400 SaO2% (BldA) [Mass fraction] 98 % Dr. Dawson Laguna Work Phone: [facility] Work Phone: 12-03-2021 12:16-0400 Systolic blood pressure 132 mm[Hg] Dr. Dawson Laguna Work Phone: [facility] Work Phone: 11-06-2021 08:22-0400 Body height 170.[address] Dawson Laguna Work Phone: [facility] Work Phone: 11-06-2021 08:22-0400 Body mass index (BMI) [Ratio] 38.7 kg/m2 Dr. Dawson Laguna Work Phone: [facility] Work Phone: 11-06-2021 08:22-0400 Body weight 112.[address] Dawson Laguna Work Phone: [facility] Work Phone: Encounters Encounter Date Encounter Type Care Provider Facility Start: 04-08-2025 End: 04-08-[address] Dawson Laguna MD Work Phone: -Laboratory [facility] Start: 04-08-2025 End: 04-08-[address] Dawson Laguna MD -[facility] Start: 04-08-2025 End: 04-08-2025 ambulatory Dawson Laguna Facility:[facility] Start: 02-18-2025 ambulatory Amy Franklin Facility:[facility] Start: 02-18-2025 Non-patient / Non-visit Dr. Amy yanez MD -[facility] Start: 02-18-2025 End: 02-18-[address] Dawson Laguna MD Work Phone: -Cardiovascular Services Start: 02-18-2025 End: 02-18-[address] Amy Reid MD -Cardiovascular Services Work Phone: Start: 02-18-2025 End: 02-18-2025 ambulatory Amy Franklin Facility:[facility] Start: 01-07-2025 End: 01-07-[address] Amy Reid MD -[facility] Work Phone: Start: 01-07-2025 End: 01-07-[address] Dawson Laguna MD Work Phone: [facility] Work Phone: Start: 01-07-2025 End: 01-07-2025 ambulatory [facility] Facility:[facility] Start: 12-17-2024 End: 12-17-[address] Dawson Laguna MD -Laboratory [facility] Start: 12-17-2024 End: 12-17-2024 ambulatory Dawson Laguna Facility:[facility] Start: 10-28-2024 End: 10-28-[address] Jim Whelan DO -[facility] Work Phone: Start: 10-28-2024 End: 10-28-2024 ambulatory Jim Whelan Facility:[facility] Start: 10-21-2024 End: 10-21-[address] Dawson Laguna MD Work Phone: [facility] Work Phone: Start: 10-21-2024 End: 10-21-[address] [facility]: 10-21-2024 End: 10-21-2024 ambulatory Dawson Laguna Facility:[facility] Start: 11-07-2023 End: 11-07-2023 ambulatory [facility] Work Phone: Start: 11-07-2023 End: 11-07-2023 Patient encounter procedure [facility] Start: 05-11-2022 Non-patient / Non-visit Dr. Ben Laguna Work Phone: [facility] Start: 05-11-2022 End: 05-11-[address] Dawson Laguna Work Phone: [facility] Work Phone: Start: 05-11-2022 End: 05-11-[address] Dawson Laguna Work Phone: [facility]Cardi[facility] Services Start: 04-26-2022 End: 04-26-[address] Dawson Laguna Work Phone: [facility] Work Phone: Start: 04-26-2022 End: 04-26-[address] Dawson Laguna Work Phone: [facility] Start: 03-28-2022 End: 03-28-[address] Dawson Laguna Work Phone: [facility] Start: 03-12-2022 End: 03-12-[address] Dawson Laguna Work Phone: [facility] Start: 02-28-[address] [facility] Start: 02-21-2022 End: 02-21-[address] Dawson Laguna Work Phone: [facility] Start: 02-13-2022 Non-patient / Non-visit Dr. Ben Laguna Work Phone: [facility] Start: 02-13-2022 End: 02-13-2022 Admission to same day surgery center Dr. Dawson [facility] Start: 02-12-2022 End: 02-12-[address] Dawson Laguna Work Phone: [facility] Start: 01-25-2022 End: 01-25-[address] Dawson Laguna Work Phone: [facility] Start: 01-18-[address] [facility] Start: 01-15-2022 Non-patient / Non-visit Dr. Ben Laguna Work Phone: [facility] Start: 01-15-2022 End: 01-15-[address] Dawson Laguna Work Phone: [facility]Cardiovascular Services Start: 01-15-2022 End: 01-15-[address] Dawson Laguna Work Phone: [facility] Start: 01-10-2022 End: 01-10-[address] Dawson Laguna Work Phone: [facility] Start: 01-03-2022 Non-patient / Non-visit Dr. Ben Laguna Work Phone: [facility] Start: 01-02-2022 Non-patient / Non-visit [facility] Start: 01-02-2022 End: 01-03-2022 Evaluation and management of inpatient Dr. Dawson Laguna Work Phone: [facility]Medical Surgical 3 Start: 12-21-2021 Non-patient / Non-visit Dr. Ben Laguna Work Phone: [facility] Start: 12-12-2021 End: 12-12-[address] Dawson Laguna Work Phone: [facility] Start: 12-03-2021 End: 12-03-[address] Dawson Laguna Work Phone: [facility] Start: 11-06-2021 End: 11-06-[address] Dawson Laguna Work Phone: [facility] Start: 10-26-2021 End: 10-26-[address] Dawson Laguna Work Phone: [facility]Radiology, [place] Procedures Date Procedure Procedure Detail Performing Clinician [...] Activity Detail Author Start: 01-07-2025 Patient referral [facility] Work Phone: Start: 01-07-2025 Evaluation of diagnostic study results [facility] Start: 02-13-2022 Application of ice collar, cap or bag [facility] Work Phone: Start: 02-13-2022 Catheterization of vein [facility] Work Phone: Start: 02-13-2022 Elevation of affected extremity [facility] Work Phone: Start: 02-13-2022 Following clinical pathway protocol [facility] Work Phone: Start: 02-13-2022 End: 02-13-2022 Patient discharge [facility] Work Phone: Start: 02-13-2022 Procedure discontinued [facility] Work Phone: Start: 02-13-2022 Taking patient vital signs [facility] Work Phone: Start: 02-13-2022 Vital signs measurements [facility] Work Phone: Start: 02-13-2022 [facility] Work Phone: Start: 02-13-2022 Anesthesia closed procedures knee joint ANESTH KNEE JOINT PROCEDURE [facility] Work Phone: Start: 02-13-2022 Manipulation knee joint under general anesthesia FIXATION OF KNEE JOINT [facility] Work Phone: Start: 02-13-2022 Medication education [facility] Work Phone: Start: 01-03-2022 Patient discharge [facility] Work Phone: Start: 01-02-2022 Following clinical pathway protocol [facility] Work Phone: Start: 01-02-2022 Oxygen therapy [facility] Work Phone: Start: 01-02-2022 [address]vision [address] trapeze [facility] Work Phone: Start: 01-02-2022 Application of intermittent pneumatic compression device [facility] Work Phone: Start: 01-02-2022 Ambulation therapy management [facility] Work Phone: Start: 01-02-2022 Application of antithromboembolic stockings [facility] Work Phone: Start: 01-02-2022 Application of device [facility] Work Phone: Start: 01-02-2022 Application of elastic bandage [facility] Work Phone: Start: 01-02-2022 Assessment of risk of venous thromboembolism [facility] Work Phone: Start: 01-02-2022 Catheterization of vein [facility] Work Phone: Start: 01-02-2022 Exercises [facility] Work Phone: Start: 01-02-2022 Following clinical pathway protocol [facility] Work Phone: Start: 01-02-2022 Incentive spirometry [facility] Work Phone: Start: 01-02-2022 Introduction of urinary catheter [facility] Work Phone: Start: 01-02-2022 Measuring intake and output [facility] Work Phone: Start: 01-02-2022 Neurovascular assessment [facility] Work Phone: Start: 01-02-2022 Patient education [facility] Work Phone: Start: 01-02-2022 Procedure discontinued [facility] Work Phone: Start: 01-02-2022 Provision of activity privileges [facility] Work Phone: Start: 01-02-2022 Referral to occupational therapist [facility] Work Phone: Start: 01-02-2022 Referral to service [facility] Work Phone: Start: 01-02-2022 Vital signs measurements [facility] Work Phone: Start: 01-02-2022 Wound care [facility] Work Phone: Start: 01-02-2022 [facility] Work Phone: Start: 01-02-2022 Admission procedure [facility] Work Phone: Comprehensive metabo lic 2000 panel - Serum or Plasma [facility] NM Heart Views W str ess and W radionuclide IV [facility] Patient referral [facility] Work Phone: Thyroid stimulating hormone measurement [facility] US Heart [facility] US.doppler Lower ext remity vein [facility] Work Phone: XR Knee 3 Views [facility] Work Phone: Payers Date Payer Category Payer Private Health Insurance 101 [id number] 2024 Self-pay [id number] 2013 Private Health Insurance [facility] [id number] Private Health Insurance [facility] [id number] Private Health Insurance [facility] [id number] Unknown [id number] Unknown [id number] Unknown [id number] Unknown [id number] Unknown [id number] Unknown [id number] Unknown [id number] Unknown [id number] Social History Date Type Detail Facility Start: 12-03-2021 End: 05-09-2023 Tobacco smoking status NHIS Unknown if ever smoked [facility] Start: 1950 Sex Assigned At Male [facility]: [facility] Start: 11-05-2024 Sex Male (finding) [facility] Start: 12-31-2024 [facility]finding[facility] Medical Equipment Procedure Code Equipment Code Equipment Origin al Text Equipment Identifier Dates Orthopaedic ceme nt, non-antimicrobial ()[id number] FDA Start: 01-02-2022 Orthopaedic ceme nt, non-antimicrobial ()[id number]( [id number] FDA Start: 01-02-2022 ([id number]) Uncoated knee fe mur prosthesis, metallic ()[id number]( [id number] FDA Start: 01-02-2022 ([id number]) Uncoated knee ti opal prosthesis, metallic ()[id number]( [id number] FDA Start: 01-02-2022 ([id number]) Polyethylene pat alex prosthesis ()[id number] FDA Start: 01-02-2022 ([id number]) Tibial insert ()[id number] FDA Start: 01-02-2022 Goals Date Patient Goal Desired Activity /State Functional Status Date Assessment Result Facility 01-03-2022 Functional status Standby Assist [facility] Work Phone: 01-02-2022 Functional status Ambulates;Bathroom Priv ilege [facility] Work Phone: Mental Status Date Assessment Result Facility 02-13-2022 Cognitive function Voice/Name [facility] Work Phone: 01-03-2022 Cognitive function Level Of Cons ciousness Awake;Alert;Appropriate;Follow s Commands [facility] Work Phone: 01-02-2022 Cognitive function Voice/Name [facility] Work Phone: Evaluation note 01-07-2025 Note Date & Type Note Facility 01-07-2025 Evaluation note Diagnosis Onset Date Resolution Atrial fibrillation acute December 242024 9:50am HTN (hypertension) chronic January 072024 9:50am Obesity (BMI 30-39.9) chronic January 07, 2025 9:50am Suspected sleep apnea chronic January 07, 2025 9:50am History of CVA (cerebrovascular accident) resolved January 07, 2025 9 :50am [facility] Work Phone: Evaluation note 10-28-2024 Note Date & Type Note Facility 10-28-2024 Evaluation note Diagnosis Onset Date Resolution History of total right knee replacement acute October 28, 2024 10:55am [facility] Work Phone: Evaluation note 10-28-2024 Note Date & Type Note Facility 10-28-2024 Evaluation note Diagnosis Onset Date Resolution History of total right knee replacement inactive October 28, 2024 10:55am Atrial fibrillation acute December 242024 9:50am [facility] [employer] Work Phone: Evaluation note 10-28-2024 Note Date [...] accident) resolved January 07, 2025 9 :50am [facility] Work Phone: Evaluation note Note Date & Type Note Facility Evaluation note Diagnosis Onset Date Osteoarthritis of right knee acute Pharyngitis acute URI (upper respiratory infection) acute [facility] Work Phone: Evaluation note Note Date & Type Note Facility Evaluation note Diagnosis Onset Date Osteoarthritis of right knee acute Pharyngitis acute URI (upper respiratory infection) acute History of total knee arthroplasty acute History of total knee arthroplasty acute Other acute postprocedural pain acute History of total knee arthroplasty acute Other acute postprocedural pain acute [facility] Work Phone: Evaluation note Note Date & [...] aftercare acute S/P total knee arthroplasty acute [facility] Work Phone: Evaluation note Note Date & [...] aftercare acute S/P total knee arthroplasty acute [facility] Work Phone: Evaluation note Note Date & Type Note Facility Evaluation note No assessment information availa [facility] Work Phone: Reason for referral (narrative) Note Date & Type Note Facility Reason for referral (narrative) No reason for referral information available [facility] Work Phone: Summary Purpose Family History No Family History Records FoundNo Family History Records Found Advance Directives No Advanced Directives Records Found Advance Directive Response Recorded Date/ Time Advance Directives No December 20 2 016 8:24am Living Will No December 21, 2015 8:24am Power of Marketing Research Coordinator No December 20 8:24am Advance Directive Response Recorded Date/ Time Advance Directives No December 20 2 016 8:24am Living Will No December 19, 2021 2:45pm Power of Marketing Research Coordinator No December 19 2:45pm Advance Directive Response Recorded Date/ Time Advance Directives No February 12 8:56am Living Will No February 12, 2022 12:03pm Power of Marketing Research Coordinator No February 12 12:03pm Advance Directive Response [...] section and content) DATE CREATED AUTHOR 08/23/2019 [facility] DATE CREATED AUTHOR AUTHOR'S ORGANIZ ATION 04/16/2025 [facility] Goals (unrecognized section and content) Goals may [...] BE BASED ON THE PRIMARY CLINICAL RECORDS. [facility] [employer] [facility]. provides no warranty or guarantee of the accuracy or completeness of information in this document.
--- NOTE | 2025-07-28 10:02 | CL.D_ITS ---
Patient Name: HANNAH LEBRON Study Date: 07/28/2025 Performing: Amy Reid MD Ht: 67 inches 170.18 cm : 1950 Wt: 240 lbs 108.86 kg Age: 74 Gender: male BSA: 2.18 PROCEDURE(S) PERFORMED DC02-([id number])[facility] CLINICAL PROFILE AND INDICATIONS Indications: Suspected CAD Heart Failure: None Stress/Imaging Stress Test w/SPECT MPI: Yes Result: Positive Intermediate RiskStress Test with SPECT MPI: Positive Intermediate Risk Angina Classification Anginal Classification w/in 2 Weeks: Anginal Equivalent Dyspnea CAD Presentations: Dyspnea on exertion CONCLUSIONS 80% Mid LAD; 70% ostial D1 99% Prox OM1 70% Prox Ramus 70% distal RCA; 80% Prox RPLV RECOMMENDATIONS Surgery consult for coronary revascularization DESCRIPTION OF PROCEDURE The patient arrived to the procedure lab. The risks and benefits of the procedure as well as a full description of our services here and current unavailability of surgical backup were fully explained to the patient and/or their significant other prior to the catheterization. The Timeout was completed, verifying the correct patient and procedure. The patient's procedural site was prepped and draped in the usual fashion. Local anesthetic was given subcutaneously to right radial region with Lidocaine 2%. Using a modified Seldinger technique, arterial access was obtained via the right radial artery, a 6Fr sheath was inserted. Left Coronary Artery selective angiography was performed in multiple views using a 5 Fr. 4.0 [place] catheter. Right Coronary Artery selective angiography was then performed in multiple views using a 5 Fr. 3DRC ([place]) catheter.The arterial sheath was pulled and a TR Band was applied for hemostasis 10 ml of air CORONARY ANGIOGRAPHY DOMINANCE: Right Dominant LEFT MAIN: Luminal Irregularities 10% Ostial lesion in LMCA LEFT ANTERIOR DESCENDING ARTERY: LAD: Calcified 50% Proximal lesion in LAD Calcified 80% Mid lesion in LAD DIAGONAL 1: Tubular 70% Ostial lesion in DIAG1 OM 1: Tubular 99% Proximal lesion in MARG1 OM 2: Tubular 99% Proximal lesion in MARG1 RAMUS: Tubular 80% Proximal lesion in Ramus RIGHT CORONARY ARTERY: RCA: Tubular 70% Distal lesion in RCA COMPLICATIONS No Complications PROCEDURE MEDICATIONS Fentanyl 50 mcg IV Versed 1 mg IV Oxygen: 2 L/min via nasal cannula Aspirin (325mg) 1 Tabs PO @ 07/28/2025 07:40:45 Heparin given IA 07/28/2025 09:18:19 Heparin 2000 unit(s) IV 07/28/2025 09:33:50 Verapamil 2.5mg, Ntg 200mcgs, 2000 units of Heparin given IA 07/28/2025 09:18:19 SUMMARY OF HEMODYNAMIC DATA Time AIR REST ECG 07:39:20 AO 103/85 (93) SA 09:26:16 AO 105/84 (93) 09:26:23 AIR REST 09:49:15 Signed By Amy Reid MD On 07/28/2025 10:02:04 Amy Reid MD
== END 2025-07-28 11:45 | disposition home or self-care (01) ==
PROVIDERS: PCP Family Medicine; Referring Provider Internal Medicine Cardiovascular Disease; Visit Provider Internal Medicine Cardiovascular Disease
DX: I25.119 Atherosclerotic heart disease of native coronary artery with unspecified angina pectoris (principal); I48.91 Unspecified atrial fibrillation; I42.9 Cardiomyopathy, unspecified; R06.09 Other forms of dyspnea; Z79.899 Other long term (current) drug therapy; Z79.84 Long term (current) use of oral hypoglycemic drugs; Z79.01 Long term (current) use of anticoagulants; K21.9 Gastro-esophageal reflux disease without esophagitis; E78.00 Pure hypercholesterolemia, unspecified; I10 Essential (primary) hypertension; E66.9 Obesity, unspecified; Z86.73 Personal history of transient ischemic attack (TIA), and cerebral infarction without residual deficits; R94.39 Abnormal result of other cardiovascular function study
CPT/HCPCS: 93454; 99152; 99153; C1894; Q9967; C1769